=== PATIENT | male | born 1950 | race Caucasian/White ===

== ENCOUNTER → 2018-01-22 10:30 | Outpatient (CLI) | payer MEDICARE, SELFPAY ==
[2018-01-22 11:16] LABS: Alanine Aminotransferase 32 IU/L (21-72); Albumin 4.4 g/dL (3.5-5.0); Albumin Globulin Ratio 1.4 (1.0-2.8); Alkaline Phosphatase 44 U/L (38-126); Aspartate Aminotransferase 34 IU/L (17-59); BUN Creatinine Ratio 21.4 (6-22); Bilirubin Total 0.8 mg/dL (0.2-1.3); Blood Urea Nitrogen 15 mg/dL (9-20); Calcium 9.5 mg/dL (8.4-10.2); Carbon Dioxide 30 mmol/L (22-32); Chloride 101 mmol/L (98-107); Estimated Glomerular Filt Rate > 60.0 mL/min (>60); Globulin 3.1 g/dL (1.7-4.1); Glucose 103 mg/dL (80-110); HEMOLYSIS < 15 (0-50); Magnesium 1.9 mg/dL (1.6-2.3); Sodium 140 mmol/L (137-145); Total Protein 7.5 g/dL (6.3-8.2)
[2018-01-22 13:41] LABS: Free T4, Direct Thyroxine 0.71 ng/dL (0.78-2.19)
[2018-01-22 13:55] LABS: Thyroid Stimulating Hormone 2.56 uIU/mL (0.47-4.68)
== END ==
PROVIDERS: Family Provider Internal Medicine; PCP Internal Medicine; Visit Provider Internal Medicine
DX: I49.9 Cardiac arrhythmia, unspecified (principal)
CPT/HCPCS: 36415; 80053; 83735; 84439; 84443

== ENCOUNTER → 2018-01-25 09:24 | Outpatient (CLI) | payer MEDICARE, SELFPAY ==
--- NOTE | 2018-02-02 17:15 | P.HOLT.S_ITS ---
Change Management Manager Report Referral & Results Date Patient Seen: 01/25/18 Requesting provider: Brenton Alonso Duration of monitoring (days): 1 Diary information: Patient had 7 diary entries that were associated with sinus rhythm, PACs, PVCs and very brief runs of SVT There are 11 patient triggered events associated with sinus rhythm, PACs and PVCs Data: Minimum heart rate was 45 beats per minute at 07:03 on 01/26/2018 Maximum heart rate was 150 beats per minute at 15:31 on January 25, 2018, associated with a 4 beat run of SVT the maximum sinus heart rate was 108 beats per minute at 16:07 on January 25, 2018 1.8% of identified beats were supraventricular ectopic in origin or a total of 1630 Less than 1% of identified beats were premature ventricular in origin Impression: Patient's triggered events and symptoms appear to be associated with supraventricular ectopic beats. There were very brief runs of SVT noted lungs which was 8 beats which is unlikely to be of any significance.
== END ==
PROVIDERS: Family Provider Internal Medicine; PCP Internal Medicine; Visit Provider Internal Medicine
DX: I49.9 Cardiac arrhythmia, unspecified (principal)
CPT/HCPCS: 0296T; 0298T

== ENCOUNTER → 2018-08-14 09:48 | Outpatient (CLI) | payer MEDICARE, SELFPAY | PROVIDERS: Family Provider Internal Medicine; PCP Internal Medicine; Visit Provider Urology | DX: N40.1 Benign prostatic hyperplasia with lower urinary tract symptoms (principal) | CPT/HCPCS: 36415; 84153 ==

== ENCOUNTER → 2018-09-06 10:38 | Outpatient (CLI) | payer MEDICARE, SELFPAY ==
--- NOTE | 2018-09-06 10:40 | DI.US.S_ITS ---
PROCEDURE: US THYROID INDICATIONS: FOLLOW-UP LAST THYROID US 08/11/15 TECHNIQUE: Real-time scanning was performed of the thyroid gland, with image documentation. COMPARISON: [facility], US, THYROID, 08/11/2015, 13:33. FINDINGS: Right: Thyroid lobe measures 5.2 x 1.9 x 1.5 cm, and is homogeneous in echotexture. Left: Thyroid lobe measures 5.2 x 1.7 x 1.6 cm, and is homogenous in echotexture. Isthmus: 3.0 mm thick. Nodule number: 1 Location: Right superior Size: Unchanged at 0.7 x 0.4 x 0.7 cm. Composition: Solid Echogenicity: Hypoechoic Shape: wider than tall. Margins: Smooth Echogenic foci: None Total points: 4 ACR TI-RADS category: Moderately suspicious Nodule number: 2 Location: Right mid Size: Slightly increased at 2.1 x 1.4 x 1.6 cm. Composition: Solid Echogenicity: Isoechoic Shape: wider than tall. Margins: Ill-defined Echogenic foci: Macrocalcification Total points: 5 ACR TI-RADS category: Moderately suspicious Nodule number: 3 Location: Right anterior Size: 3.3 x 2.7 x 2.3 cm. Composition: Cystic Echogenicity: Anechoic Shape: wider than tall. Margins: Smooth Echogenic foci: None Total points: 0 ACR TI-RADS category: Benign colloid cyst. Nodule number: 4 Location: Left superior Size: 0.9 x 0.4 x 0.6 cm. Composition: Predominantly solid Echogenicity: Hypoechoic Shape: wider than tall. Margins: Smooth Echogenic foci: None Total points: 4 ACR TI-RADS category: Moderately suspicious Nodule number: 5 Location: Left inferior Size: Unchanged at 0.9 x 0.4 x 0.8 cm. Composition: Solid Echogenicity: Hypoechoic Shape: wider than tall. Margins: Smooth Echogenic foci: None Total points: 4 ACR TI-RADS category: Moderately suspicious IMPRESSION: Bilateral thyroid nodules as above. Recommend sonographic directed fine needle aspiration involving the right # 2 nodule and continued sonographic surveillance of the remaining nodules as detailed below. ACR TI-RADS definitions and recommendations: TI-RADS 1 (benign): 0 points. FNA not needed. TI-RADS 2 (not suspicious): 2 points. FNA not needed. TI-RADS 3 (mildly suspicious): 3 points. * FNA if 2.5 cm or larger, follow up if 1.5 cm or larger (at 1, 3, and 5 years). TI-RADS 4 (moderately suspicious): 4-6 points. * FNA if 1.5 cm or larger, follow up if 1 cm or larger (at 1, 2, 3, and 5 years). TI-RADS 5 (highly suspicious): 7 points or more. * FNA if 1 cm or larger, follow up if 0.5 cm or larger (every year for 5 years). Dictated by: Joe Moreno [facility] Interpreted: Gary Valerio MD on 09/07/2018 at 11:41 Approved by: Gary Valerio M.D. on 09/07/2018 at 14:14
== END ==
PROVIDERS: Family Provider Internal Medicine; PCP Internal Medicine; Visit Provider Internal Medicine
DX: E04.2 Nontoxic multinodular goiter (principal)
CPT/HCPCS: 76536

== ENCOUNTER → 2018-09-10 08:22 | Outpatient (CLI) | payer MEDICARE, SELFPAY ==
[2018-09-10 09:10] LABS: Alanine Aminotransferase 31 IU/L (21-72); Albumin 4.5 g/dL (3.5-5.0); Albumin Globulin Ratio 1.6 (1.0-2.8); Alkaline Phosphatase 48 U/L (38-126); Aspartate Aminotransferase 28 IU/L (17-59); Bilirubin Total 0.6 mg/dL (0.2-1.3); Blood Urea Nitrogen 14 mg/dL (9-20); Carbon Dioxide 29 mmol/L (22-32); Chloride 101 mmol/L (98-107); Estimated Glomerular Filt Rate > 60.0 mL/min (>60); Globulin 2.9 g/dL (1.7-4.1); Glucose 90 mg/dL (80-110); HEMOLYSIS < 15 (0-50); Potassium 3.7 mmol/L (3.4-5.1); Sodium 139 mmol/L (137-145); Total Protein 7.4 g/dL (6.3-8.2)
[2018-09-10 09:25] LABS: Free T4, Direct Thyroxine 0.61 ng/dL (0.78-2.19)
[2018-09-10 09:38] LABS: Prostate Specific Antigen Scrn 2.09 ng/mL (0.1-4.0)
[2018-09-10 09:39] LABS: Thyroid Stimulating Hormone 3.24 uIU/mL (0.47-4.68)
== END ==
PROVIDERS: Family Provider Internal Medicine; PCP Internal Medicine; Visit Provider Internal Medicine
DX: E04.1 Nontoxic single thyroid nodule (principal); G43.909 Migraine, unspecified, not intractable, without status migrainosus; N40.0 Benign prostatic hyperplasia without lower urinary tract symptoms; Z12.5 Encounter for screening for malignant neoplasm of prostate
CPT/HCPCS: 36415; 80053; 84439; 84443; G0103

== ENCOUNTER → 2018-10-04 09:40 | Outpatient (CLI) | payer MEDICARE, SELFPAY ==
--- NOTE | 2018-10-04 | DI.US.S_ITS ---
PROCEDURE: US FINE NEEDLE ASPIRATION INDICATIONS: NODULES TECHNIQUE: The indications, alternatives, benefits, risks, and complications of the procedure were explained to the patient. Written informed consent was obtained and placed in the chart. The area of interest was examined sonographically and a site was chosen for ultrasound guided percutaneous sampling. The skin was prepared and draped in the usual fashion, and anesthetized with 1% lidocaine infiltrated from the skin down to the lesion. Multiple passes were then performed, with contents emptied into an appropriate pathology specimen container. A bandage was applied to the area of access at completion of the study. COMPARISON: [facility], , US THYROID, 09/06/2018, 10:45. FINDINGS: Location(s) of lesion(s) sampled: right thyroid mass [place]: 25 gauge hypodermic needles. Number of passes: 6 Medications: 1% lidocaine for local anaesthesia. Complications: None. 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 Aspiration of the cyst could not be performed (no safe window for needle placement). IMPRESSION: 1. Successful ultrasound-guided fine needle aspiration of right thyroid mass, with cytology results pending. 2. Aspiration of right colloid cyst could not be performed (inferior to the right clavicle). Dictated by: Aracelis Ferrell M.D. on 10/04/2018 at 11:39 Approved by: Aracelis Ferrell M.D. on 10/04/2018 at 11:47
--- NOTE | 2018-10-04 | PATH_ITS ---
Note [facility] Accession Number: [id number] TESTS RESULT FLAG UNITS REF RANGE LAB Clinician Provided Cytology Information No. of containers..01 ThinPrep Vial No. of containers..10 Previously Prepared Cytology Slide R THYROID NODULE DIAGNOSIS: R THYROID NODULE INCONCLUSIVE. ATYPIA OF UNDETERMINED SIGNIFICANCE. RARE FOLLICULAR GROUPS WITH FOCAL CYTOLOGIC ATYPIA AND ABUNDANT DENSE COLLOID. Comment: A repeat aspirate after an appropriate interval of observation might be helpful, if clinically indicated. Pathologist ICD10: 02 R89.6, E04.2, D44.0 01 09/21/18: 68 year old male returns at the request of Dr. Alonso for evaluation of multinodular thyroid, with compressive symptoms leading to mild dysphagia. 02 Lianna Damico MD, Pathologist NPI- [id number] 01 Daljit Noriega, Research Intern ([facility]) 01 30 CC, PINK, CLEAR Also received 5 alcohol fixed, 5 quick stained slides, and 1 RNA vial. /HKH FLAG LEGEND: L-Low Normal,H-High Normal,LL-Alert Low,HH-Alert High <-Panic Low,>-Panic High,A-Abnormal,AA-Critical Abnormal Performed at: 01 =Z [facility] [address] [place] [address] [address], [place] [address] Carlos Norris MD, [address] [facility] [address] [place] [id number] Mamie Bourne MD, Performed at: [address] [facility] [address], [place], [place] [id number] MD Carlos Norris MD Phone: [phone]
== END ==
PROVIDERS: Family Provider Internal Medicine; PCP Internal Medicine; Visit Provider Otolaryngology
DX: E04.1 Nontoxic single thyroid nodule (principal)
CPT/HCPCS: 10005

== ENCOUNTER → 2019-07-29 10:37 | Outpatient (CLI) | payer MEDICARE, SELFPAY ==
[2019-07-29 14:03] LABS: Prostate Specific Antigen 2.33 ng/mL (0.10-4.00)
== END ==
PROVIDERS: PCP Internal Medicine; Visit Provider Urology
DX: N40.1 Benign prostatic hyperplasia with lower urinary tract symptoms (principal)
CPT/HCPCS: 36415; 84153

== ENCOUNTER → 2019-09-25 10:02 | Outpatient (CLI) | payer MEDICARE, SELFPAY ==
[2019-09-25 10:45] LABS: Add Manual Diff / Slide Review NO; Basophils Absolute Auto 0 /uL (0-100); Basophils Percent Auto 0.7 % (0-2); Eosinophils Absolute Auto 100 /uL (0-450); Eosinophils Percent Auto 2.8 % (2-4); Hematocrit 41.8 % (41-53); Hemoglobin 14.5 g/dL (13.5-17.5); Lymphocytes Absolute Auto 2000 /uL (1100-4500); Lymphocytes Percent Auto 47.4 % (25-40); Mean Corpuscular HGB Conc 34.6 % (30-36); Mean Corpuscular Hemoglobin 36.2 PG (26-34); Mean Corpuscular Volume 104.4 fL (80-100); Monocytes Absolute Auto 300 /uL (0-900); Monocytes Percent Auto 6.4 % (3-14); Neutrophils Absolute Auto 1800 /uL (1500-7000); Neutrophils Percent Auto 42.7 % (50-75); Platelet Count 306 X10^3/uL (150-400); Red Blood Cell Count 4.01 X10^6/uL (4.5-5.9); Red Cell Distribution Width 12.7 % (11.6-14.8); White Blood Cell Count 4.2 X10^3/uL (4.5-11.0)
[2019-09-25 11:19] LABS: Alanine Aminotransferase 27 IU/L (<50); Albumin 4.4 g/dL (3.5-5.0); Albumin Globulin Ratio 1.5 (1.0-2.8); Alkaline Phosphatase 58 U/L (38-126); Aspartate Aminotransferase 31 IU/L (17-59); Bilirubin Total 0.6 mg/dL (0.2-1.3); Blood Urea Nitrogen 12 mg/dL (9-20); Calcium 9.8 mg/dL (8.4-10.2); Carbon Dioxide 31 mmol/L (22-32); Chloride 101 mmol/L (98-107); Estimated Glomerular Filt Rate > 60.0 mL/min (>60); Globulin 2.9 g/dL (1.7-4.1); Glucose 96 mg/dL (80-110); HEMOLYSIS < 15 (0-50); Potassium 4.5 mmol/L (3.4-5.1); Sodium 139 mmol/L (137-145); Total Protein 7.3 g/dL (6.3-8.2)
== END ==
PROVIDERS: PCP Internal Medicine; Referring Provider Internal Medicine; Visit Provider Internal Medicine
DX: Z13.1 Encounter for screening for diabetes mellitus (principal); Z13.6 Encounter for screening for cardiovascular disorders; D75.89 Other specified diseases of blood and blood-forming organs; G43.909 Migraine, unspecified, not intractable, without status migrainosus
CPT/HCPCS: 36415; 80053; 85025

== ENCOUNTER → 2020-08-11 08:07 | Outpatient (CLI) | payer MEDICARE, SELFPAY ==
[2020-08-11 10:39] LABS: Prostate Specific Antigen 2.49 ng/mL (0.10-4.00)
== END ==
PROVIDERS: PCP Internal Medicine; Referring Provider Specialist; Visit Provider Specialist
DX: R97.20 Elevated prostate specific antigen [PSA] (principal)
CPT/HCPCS: 36415; 84153

== ENCOUNTER → 2020-09-28 09:25 | Outpatient (CLI) | payer MEDICARE, SELFPAY ==
[2020-09-28 10:17] LABS: Add Manual Diff / Slide Review NO; Basophils Absolute Auto 0 /uL (0-100); Basophils Percent Auto 0.8 % (0-2); Eosinophils Absolute Auto 100 /uL (0-450); Eosinophils Percent Auto 3.5 % (2-4); Hematocrit 41.7 % (41-53); Hemoglobin 14.1 g/dL (13.5-17.5); Lymphocytes Absolute Auto 1700 /uL (1100-4500); Lymphocytes Percent Auto 48.1 % (25-40); Mean Corpuscular HGB Conc 33.7 % (30-36); Mean Corpuscular Hemoglobin 35.5 PG (26-34); Mean Corpuscular Volume 105.5 fL (80-100); Monocytes Absolute Auto 400 /uL (0-900); Monocytes Percent Auto 10.3 % (3-14); Neutrophils Absolute Auto 1300 /uL (1500-7000); Neutrophils Percent Auto 37.3 % (50-75); Platelet Count 250 X10^3/uL (150-400); Red Blood Cell Count 3.96 X10^6/uL (4.5-5.9); White Blood Cell Count 3.6 X10^3/uL (4.5-11.0)
[2020-09-28 10:57] LABS: Alanine Aminotransferase 23 IU/L (<50); Albumin 4.4 g/dL (3.5-5.0); Albumin Globulin Ratio 1.5 (1.0-2.8); Alkaline Phosphatase 54 U/L (38-126); Aspartate Aminotransferase 29 IU/L (17-59); BUN Creatinine Ratio 19.5 (6-22); Bilirubin Total 0.8 mg/dL (0.2-1.3); Blood Urea Nitrogen 15 mg/dL (9-20); Calcium 9.4 mg/dL (8.4-10.2); Carbon Dioxide 32 mmol/L (22-32); Chloride 102 mmol/L (98-107); Estimated Glomerular Filt Rate > 60.0 mL/min (>60); Globulin 2.9 g/dL (1.7-4.1); Glucose 99 mg/dL (80-110); HEMOLYSIS < 15 (0-50); Potassium 4.3 mmol/L (3.4-5.1); Sodium 137 mmol/L (137-145); Total Protein 7.3 g/dL (6.3-8.2)
[2020-09-28 14:39] LABS: Prostate Specific Antigen 2.32 ng/mL (0.10-4.00)
[2020-09-28 14:40] LABS: TSH w/ Reflex to FT4 2.41 uIU/mL (0.47-4.68)
== END ==
PROVIDERS: PCP Internal Medicine; Referring Provider Internal Medicine; Visit Provider Internal Medicine
DX: D70.9 Neutropenia, unspecified (principal); N40.1 Benign prostatic hyperplasia with lower urinary tract symptoms; E04.2 Nontoxic multinodular goiter; D75.89 Other specified diseases of blood and blood-forming organs; E04.1 Nontoxic single thyroid nodule; F07.81 Postconcussional syndrome; N52.9 Male erectile dysfunction, unspecified
CPT/HCPCS: 36415; 80053; 84153; 84443; 85025

== ENCOUNTER 2020-10-07 08:15 | Outpatient (RCR) | payer MEDICARE, SELFPAY ==
--- NOTE | 2020-07-14 12:57 | PT.OPPOC ---
Physical, Occupational & Speech Therapy At [facility] Current Diagnoses Pain in right shoulder (07/14/20) Impingement syndrome of right shoulder (07/14/20) Weakness (07/14/20) Visit Care Team Role Provider Type Brenton Alonso MD Primary Care Provider Physician Specialty: Internal Medicine Address: [address] [place] [address], [address], [place], [address] Email: [email or web address] Carlos Nunes MD Attending Provider Physician Referring Provider Specialty: Orthopedic Surgery Address: [address] [place] [address], [id number] Email: [email or web address] Plan Of Care PT-OP-T Assessment and Plan Start: 07/07/20 14:49 Freq: Status: Active Protocol: Document 07/14/20 12:57 [facility] (Rec: 07/14/20 17:26 [facility] [id number]) Physical Therapy Assessment Rehab Potential Rehabilitation Potential Good Evaluation Complexity Number of Personal Factors/Comorbidities 1-2 Number of Body Systems Impaired 3 Clinical Presentation at Evaluation Evolving Impairments Impairments Functional Activities,Pain, Strength Goals 3 Impairment weakness right shoulder Long-Term Goal (LTG) Patient to demonstrate 5/5 muscle strength throughout right shouldre LTG Duration 09/12/20 2 Impairment pain right shoulder 4/10 with usual activities Order Dispatcher Goal (LTG) Pain no greater than 1-2/10 with usual activities LTG Duration 09/12/20 1 Impairment QuickDash UE disability questionnaire 18% Order Dispatcher Goal (LTG) Decrase QuickDash score to no greater than 5% LTG Duration 09/12/20 Assessment Summary Assessment Patient presents with function -limiting pain right shoulder related to injury sustained while pulling shrimp pots. 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 Would benefit from physical therapy to decrease his pain, improve his strength, and help him return to his prior level of function including kayaking and finshing without an increase in pain. Physical Therapy Plan Frequency and Duration Frequency of Treatment 2x/Week Duration of Treatment 8 Plan of Care Start Date 07/14/20 Plan of Care End Date 09/12/20 Therapeutic Interventions Therapeutic Interventions Home Exercise Program,Joint Mobilizations,Manual Therapy, Neuromuscular Re-education, Patient/Caregiver Education, Self-Care/Home Management,Soft Tissue Mobilization,Taping, Therapeutic Activities, Therapeutic Exercises Modalities Cold Pack/Ice Massage,Electric Stimulation,Iontophoresis, Ultrasound Next Visit Focus/Plan Next Note Type Treatment Note Next Visit Plan Review HEP, progression of ther ex as tolerated. Manual therapy to first rib, AC joint , and GH joint. End with ice pack to decrease post exercise pain and inflammation Plan of Care Dates Plan of Care Start Date 07/14/20 Plan of Care End Date 09/12/20 Electronically Signed by: Nickie Lim, PT 07/15/20 0937 Please Sign and Return: I have reviewed this Plan of Care and certify that the skilled therapy services above are required to meet the patient?s needs. Physician Signature Date Printed Name and Credentials Clinical Instructor Signature Printed Name and Credentials
--- NOTE | 2020-07-14 12:57 | PT.OIE ---
Current Diagnoses Pain in right shoulder (07/14/20) Impingement syndrome of right shoulder (07/14/20) Weakness (07/14/20) Past Medical History (Last Updated 09/17/18 @ 10:27 by Brenton Alonso MD) Actinic keratosis of scalp (02/17/14) Anxiety (02/17/14) BPH (benign prostatic hyperplasia) (~2006) Central serous retinopathy (~1993) Daily headache (02/17/14) Diverticular disease (~1993) Fractures (~1973) Hemorrhoid (~2003) Insomnia (~2010) Internal hemorrhoids (10/28/14) Irritable bowel syndrome Macrocytosis (~2012) Migraines (~2010) Nonallopathic lesion of cervical region (10/28/14) Postconcussion syndrome (02/17/14) Reflux (06/09/14) Seborrheic keratosis (02/17/14) Thyroid nodule (~2012) Tinnitus Tubular adenoma of colon (10/28/14) Vertigo Vertigo (~2010) Past Surgical History (Last Reviewed 05/24/18 @ 10:24 by Willie Medina PA-C) Inguinal hernia (~2013) Status post colonoscopy (~2014) Status post hernia repair (~1964) Visit Care Team Role Provider Type Brenton Alonso MD Primary Care Provider Physician Specialty: Internal Medicine Address: [address] [place] [address], [address], [address] Email: [email or web address] Carlos Nunes MD Attending Provider Physician Referring Provider Specialty: Orthopedic Surgery Address: [address] [place] [address], [id number] Email: [email or web address] Physical Therapy Initial Evaluation PT-OP-A Visit Information Start: 07/07/20 14:49 Freq: Status: Active Protocol: Document 07/14/20 12:57 [facility] (Rec: 07/14/20 13:41 [facility] [id number]) Out-Patient Physical Therapy Visit Information Visit Information Visit Type Initial Evaluation Visit Start Time 13:00 Visit Stop Time 13:55 Total Visit Minutes 55 Visit Number 1 Evaluation Information Evaluation Date 07/14/20 Precautions Precautions PMH: concussion 2 years ago. PT-OP-B Current Condition Start: 07/07/20 14:49 Freq: Status: Active Protocol: Document 07/14/20 12:57 [facility] (Rec: 07/14/20 13:41 [facility] [id number]) Current Condition History of Current Condition Onset Date 4 months ago Current Complaints shoulder pain History of Current Condition Pulling shrimp pots, reachiing diagnonally overhead felt strain, onset of right shoulder pain. Has been doing ther ex, ROM good, strenth limited (states left feels stronger than his right). Concerned pain continues. Using ice pack after exercise, heat not helpful. Topical CBD helpful short term. Interrupts sleep. Painful with kayaking. 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 Prior Functional Status Baseline Function- ADL's Independent Baseline Function- Mobility Independent Baseline Function- Recreation/Hobbies Fishing, woodwork, Current Functional Impairments (Reported) Functional Limitations- ADL's painful Functional Limitations- Recreation/ painful Hobbies Personal Factors Other Personal Factors That May Effect PMH: left clavicle fracture, Therapy/Recovery concussion PT-OP-C Subjective Start: 07/07/20 14:49 Freq: Status: Active Protocol: Document 07/14/20 12:57 [facility] (Rec: 07/14/20 13:41 [facility] [id number]) Patient Questionnaires Quick Dash- Upper Extremity Quick Dash UE Score 18 OP-PT Pain Assessment Pain Assessment Grid Paper Pain Assessment Grid Completed Yes Location right AC joint Intensity 4 PT-OP-E Functional Tests Start: 07/07/20 14:49 Freq: Status: Active Protocol: Document 07/14/20 12:57 [facility] (Rec: 07/15/20 09:36 [facility] [id number]) Functional Tests Apley's Scratch Test Action 1- Left posterior shoulder Action 1- Right posterior shoulder with somepain Action 2- Left T2 Action 2- Right T2 with pain Action 3- Left T7 Action 3- Right T7 withpain PT-OP-F Manual Assessment Start: 07/07/20 14:49 Freq: Status: Active Protocol: Document 07/14/20 12:57 [facility] (Rec: 07/15/20 09:36 [facility] [id number]) Manual Assessments Joint Mobility Assessment Joint Mobility Assessment decreased inferior and posterior glide right shoulder PT-OP-J Posture/Palpation/Skin Start: 07/07/20 14:49 Freq: Status: Active Protocol: Document 07/14/20 12:57 [facility] (Rec: 07/15/20 09:36 [facility] [id number]) Posture Evaluation Position Sitting Head/C-Spine Posture Forward Head T-Spine Posture Increased Kyphosis Shoulder Posture (L) Rounded,(R) Rounded Scapula Posture (L) Neutral,(R) Protracted Arm Posture (L) Internally Rotated,(R) Internally Rotated Palpation Assessment Location [place] Palpation Findings Soft Tissue Tightness,Trigger Point Palpation Details right greater than left PT-OP-K Range of Motion Start: 07/07/20 14:49 Freq: Status: Active Protocol: Document 07/14/20 12:57 [facility] (Rec: 07/15/20 09:36 [facility] [id number]) Cervical Spine Range of Motion Cervical Spine Active ROM Limitations Soft Tissue Tightness Comments mild limitation in left sidebending and rotation Shoulder Goniometric Range of Motion Shoulder Right Active Shoulder ROM WFL No Flexion 170 Abduction 165 Horizontal Adduction 45 External Rotation at 45 degrees 65 Abduction Internal Rotation Behind Back (text) T7 Left Active Shoulder ROM WFL Yes Shoulder ROM Limitations Shoulder ROM Limitations Soft Tissue Tightness,Pain Elbow/Forearm Range of Motion Elbow/Forearm daljit Elbow/Forearm ROM WFL Yes PT-OP-L Special Tests Start: 07/07/20 14:49 Freq: Status: Active Protocol: Document 07/14/20 12:57 [facility] (Rec: 07/15/20 09:36 [facility] [id number]) Special Tests Shoulder Special Tests Elevation Impingement Test Results positive right Drop Arm Rotator Cuff Test Results negative Belly Press Test Results negative PT-OP-M Strength Start: 07/07/20 14:49 Freq: Status: Active Protocol: Document 07/14/20 12:57 [facility] (Rec: 07/15/20 09:36 [facility] [id number]) Shoulder Strength Shoulder Manual Muscle Testing Right Flexion 4 Good Extension 4+ Good+ Abduction (C5) 4 Good Adduction 4 Good External Rotation 4- Good- Internal Rotation 4 Good Horizontal Abduction 4 Good Horizontal Adduction 4 Good Left Flexion 5 Normal Extension 5 Normal Abduction (C5) 5 Normal Adduction 5 Normal External Rotation 4 Good Internal Rotation 4+ Good+ Horizontal Abduction 4+ Good+ Horizontal Adduction 4+ Good+ PT-OP-Q Treatments Start: 07/07/20 14:49 Freq: Status: Active Protocol: Document 07/14/20 12:57 [facility] (Rec: 07/14/20 17:15 [facility] [id number]) Self-Care/Home Management Treatment Education Patient Education Home Exercise Program,Joint Protection,Pain Management, Posture Other Education Issued written handout for HEP PT-OP-R Modalities Start: 07/07/20 14:49 Freq: Status: Active Protocol: Document 07/14/20 12:57 [facility] (Rec: 07/14/20 17:16 [facility] [id number]) Hot Pack/Cold Pack Treatment Cold Pack Location right shoulder Patient Position Hooklying Treatment Duration (minutes) 10 Patient Tolerance Good PT-OP-T Assessment and Plan Start: 07/07/20 14:49 Freq: Status: Active Protocol: Document 07/14/20 12:57 [facility] (Rec: 07/14/20 17:26 [facility] [id number]) Physical Therapy Assessment Rehab Potential Rehabilitation Potential Good Evaluation Complexity Number of Personal Factors/Comorbidities 1-2 Number of Body Systems Impaired 3 Clinical Presentation at Evaluation Evolving Impairments Impairments Functional Activities,Pain, Strength Goals 3 Impairment weakness right shoulder [facility] Goal (LTG) Patient to demonstrate 5/5 muscle strength throughout right shouldre LTG Duration 09/12/20 2 Impairment pain right shoulder 4/10 with usual activities Research Assistant Member Goal (LTG) Pain no greater than 1-2/10 with usual activities LTG Duration 09/12/20 1 Impairment QuickDash UE disability questionnaire 18% [facility] Goal (LTG) Decrase QuickDash score to no greater than 5% LTG Duration 09/12/20 Assessment Summary Assessment Patient presents with function -limiting pain right shoulder related to injury sustained while pulling shrimp pots. 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 Would benefit from physical therapy to decrease his pain, improve his strength, and help him return to his prior level of function including kayaking and finshing without an increase in pain. Physical Therapy Plan Frequency and Duration Frequency of Treatment 2x/Week Duration of Treatment 8 Plan of Care Start Date 07/14/20 Plan of Care End Date 09/12/20 Therapeutic Interventions Therapeutic Interventions Home Exercise Program,Joint Mobilizations,Manual Therapy, Neuromuscular Re-education, Patient/Caregiver Education, Self-Care/Home Management,Soft Tissue Mobilization,Taping, Therapeutic Activities, Therapeutic Exercises Modalities Cold Pack/Ice Massage,Electric Stimulation,Iontophoresis, Ultrasound Next Visit Focus/Plan Next Note Type Treatment Note Next Visit Plan Review HEP, progression of ther ex as tolerated. Manual therapy to first rib, AC joint , and GH joint. End with ice pack to decrease post exercise pain and inflammation
--- NOTE | 2020-07-21 16:30 | PT.OTN ---
Current Diagnoses Pain in right shoulder (07/21/20) Impingement syndrome of right shoulder (07/21/20) Weakness (07/21/20) Physical Therapy Treatment Note PT-OP-A Visit Information Start: 07/07/20 14:49 Freq: Status: Active Protocol: Document 07/21/20 09:43 SAK (Rec: 07/21/20 10:33 SAK [id number]) Out-Patient Physical Therapy Visit Information Visit Information Visit Type Treatment Note Visit Note Patient reports a little less stiff in AM, compliant to HEP Visit Start Time 09:45 Visit Stop Time 10:34 Total Visit Minutes 48 Visit Number 2 Evaluation Information Evaluation Date 07/14/20 Precautions Precautions PMH: concussion 2 years ago. PT-OP-B Current Condition Start: 07/07/20 14:49 Freq: Status: Active Protocol: Document 07/14/20 12:57 SAK (Rec: 07/14/20 13:41 SAK [id number]) Current Condition History of Current Condition Onset Date 4 months ago Current Complaints shoulder pain History of Current Condition Pulling shrimp pots, reachiing diagnonally overhead felt strain, onset of right shoulder pain. Has been doing ther ex, ROM good, strenth limited (states left feels stronger than his right). Concerned pain continues. Using ice pack after exercise, heat not helpful. Topical CBD helpful short term. Interrupts sleep. Painful with kayaking. 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 Prior Functional Status Baseline Function- ADL's Independent Baseline Function- Mobility Independent Baseline Function- Recreation/Hobbies Fishing, woodwork, Current Functional Impairments (Reported) Functional Limitations- ADL's painful Functional Limitations- Recreation/ painful Hobbies Personal Factors Other Personal Factors That May Effect PMH: left clavicle fracture, Therapy/Recovery concussion PT-OP-C Subjective Start: 07/07/20 14:49 Freq: Status: Active Protocol: Document 07/14/20 12:57 SAK (Rec: 07/14/20 13:41 SAK [id number]) Patient Questionnaires Quick Dash- Upper Extremity Quick Dash UE Score 18 OP-PT Pain Assessment Pain Assessment Grid Paper Pain Assessment Grid Completed Yes Location right AC joint Intensity 4 PT-OP-E Functional Tests Start: 07/07/20 14:49 Freq: Status: Active Protocol: Document 07/14/20 12:57 SAK (Rec: 12/23/20 09:36 [facility] [id number]) Functional Tests Apley's Scratch Test Action 1- Left posterior shoulder Action 1- Right posterior shoulder with somepain Action 2- Left T2 Action 2- Right T2 with pain Action 3- Left T7 Action 3- Right T7 withpain PT-OP-F Manual Assessment Start: 07/07/20 14:49 Freq: Status: Active Protocol: Document 07/14/20 12:57 [facility] (Rec: 07/15/20 09:36 [facility] [id number]) Manual Assessments Joint Mobility Assessment Joint Mobility Assessment decreased inferior and posterior glide right shoulder PT-OP-J Posture/Palpation/Skin Start: 07/07/20 14:49 Freq: Status: Active Protocol: Document 07/14/20 12:57 [facility] (Rec: 07/15/20 09:36 [facility] [id number]) Posture Evaluation Position Sitting Head/C-Spine Posture Forward Head T-Spine Posture Increased Kyphosis Shoulder Posture (L) Rounded,(R) Rounded Scapula Posture (L) Neutral,(R) Protracted Arm Posture (L) Internally Rotated,(R) Internally Rotated Palpation Assessment Location [place] Palpation Findings Soft Tissue Tightness,Trigger Point Palpation Details right greater than left PT-OP-K Range of Motion Start: 07/07/20 14:49 Freq: Status: Active Protocol: Document 07/14/20 12:57 [facility] (Rec: 07/15/20 09:36 [facility] [id number]) Cervical Spine Range of Motion Cervical Spine Active ROM Limitations Soft Tissue Tightness Comments mild limitation in left sidebending and rotation Shoulder Goniometric Range of Motion Shoulder Right Active Shoulder ROM WFL No Flexion 170 Abduction 165 Horizontal Adduction 45 External Rotation at 45 degrees 65 Abduction Internal Rotation Behind Back (text) T7 Left Active Shoulder ROM WFL Yes Shoulder ROM Limitations Shoulder ROM Limitations Soft Tissue Tightness,Pain Elbow/Forearm Range of Motion Elbow/Forearm daljit Elbow/Forearm ROM WFL Yes PT-OP-L Special Tests Start: 07/07/20 14:49 Freq: Status: Active Protocol: Document 07/14/20 12:57 [facility] (Rec: 07/15/20 09:36 [facility] [id number]) Special Tests Shoulder Special Tests Elevation Impingement Test Results positive right Drop Arm Rotator Cuff Test Results negative Belly Press Test Results negative PT-OP-M Strength Start: 07/07/20 14:49 Freq: Status: Active Protocol: Document 07/14/20 12:57 [facility] (Rec: 07/15/20 09:36 [facility] [id number]) Shoulder Strength Shoulder Manual Muscle Testing Right Flexion 4 Good Extension 4+ Good+ Abduction (C5) 4 Good Adduction 4 Good External Rotation 4- Good- Internal Rotation 4 Good Horizontal Abduction 4 Good Horizontal Adduction 4 Good Left Flexion 5 Normal Extension 5 Normal Abduction (C5) 5 Normal Adduction 5 Normal External Rotation 4 Good Internal Rotation 4+ Good+ Horizontal Abduction 4+ Good+ Horizontal Adduction 4+ Good+ PT-OP-Q Treatments Start: 07/07/20 14:49 Freq: Status: Active Protocol: Document 07/21/20 09:43 [facility] (Rec: 07/21/20 10:33 [facility] [id number]) Therapeutic Exercises Supine Exercises serratus punch Resistance 2# Reps/Minutes 10x Prone Exercises I, T, Y Equipment Used therapy ball 55 cm Reps/Minutes 10x Comments 1# with Y, 1# T, 2# Y Sidelying Exercises open book Reps/Minutes 5x Comments with manual facilitation for segmental movement shoulder ER Resistance 1# Reps/Minutes 10x Comments verbal and manual cues for scapular stabilization Sitting Exercises lat shrug Resistance 30# Reps/Minutes 10x2 Comments verbal and manual cues for scapular biomechanics pulleys Sitting Exercise Name flex and scaption Reps/Minutes 10x ea Manual Therapy Treatment Joint Mobilizations GH Direction distraction, posterior glide Grade III Body Position Hooklying first rib Direction inferior glide Grade III Body Position Hooklying Self-Care/Home Management Treatment Education Patient Education Home Exercise Program,Pain Management,Posture PT-OP-R Modalities Start: 07/07/20 14:49 Freq: Status: Active Protocol: Document 07/14/20 12:57 [facility] (Rec: 07/14/20 17:16 [facility] [id number]) Hot Pack/Cold Pack Treatment Cold Pack Location right shoulder Patient Position Hooklying Treatment Duration (minutes) 10 Patient Tolerance Good PT-OP-T Assessment and Plan Start: 07/07/20 14:49 Freq: Status: Active Protocol: Document 07/21/20 09:43 [facility] (Rec: 07/21/20 10:33 [facility] [id number]) Physical Therapy Assessment Goals 3 Impairment weakness right shoulder Correction Goal (LTG) Patient to demonstrate 5/5 muscle strength throughout right shouldre LTG Duration 09/12/20 2 Impairment pain right shoulder 4/10 with usual activities Correction Goal (LTG) Pain no greater than 1-2/10 with usual activities LTG Duration 09/12/20 1 Impairment QuickDash UE disability questionnaire 18% Correction Goal (LTG) Decrase QuickDash score to no greater than 5% LTG Duration 09/12/20 Assessment Summary Assessment Patient needs verbal and manual cues for correction of scapular mechanics with all ther ex, but improved throughout session with good understanding. Issued updated written HEP. Denied increased pain with ther ex. Physical Therapy Plan Frequency and Duration Frequency of Treatment 2x/Week Duration of Treatment 8 Plan of Care Start Date 07/14/20 Plan of Care End Date 09/12/20 Therapeutic Interventions Therapeutic Interventions Home Exercise Program,Joint Mobilizations,Manual Therapy, Neuromuscular Re-education, Patient/Caregiver Education, Self-Care/Home Management,Soft Tissue Mobilization,Taping, Therapeutic Activities, Therapeutic Exercises Modalities Cold Pack/Ice Massage,Electric Stimulation,Iontophoresis, Ultrasound Next Visit Focus/Plan Next Note Type Treatment Note Next Visit Plan simulate pulling shrimp pots with use of theraband.
--- NOTE | 2020-07-23 16:57 | PT.OTN ---
Current Diagnoses Pain in right shoulder (07/23/20) Impingement syndrome of right shoulder (07/23/20) Weakness (07/23/20) Physical Therapy Treatment Note PT-OP-A Visit Information Start: 07/07/20 14:49 Freq: Status: Active Protocol: Document 07/23/20 10:32 SAK (Rec: 07/23/20 11:07 SAK [id number]) Out-Patient Physical Therapy Visit Information Visit Information Visit Type Treatment Note Visit Note No new c/o, feels exercises are helpful. Visit Start Time 10:30 Visit Stop Time 11:15 Total Visit Minutes 45 Visit Number 3 Evaluation Information Evaluation Date 07/14/20 Precautions Precautions PMH: concussion 2 years ago. PT-OP-B Current Condition Start: 07/07/20 14:49 Freq: Status: Active Protocol: Document 07/14/20 12:57 SAK (Rec: 07/14/20 13:41 SAK [id number]) Current Condition History of Current Condition Onset Date 4 months ago Current Complaints shoulder pain History of Current Condition Pulling shrimp pots, reachiing diagnonally overhead felt strain, onset of right shoulder pain. Has been doing ther ex, ROM good, strenth limited (states left feels stronger than his right). Concerned pain continues. Using ice pack after exercise, heat not helpful. Topical CBD helpful short term. Interrupts sleep. Painful with kayaking. 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 Prior Functional Status Baseline Function- ADL's Independent Baseline Function- Mobility Independent Baseline Function- Recreation/Hobbies Fishing, woodwork, Current Functional Impairments (Reported) Functional Limitations- ADL's painful Functional Limitations- Recreation/ painful Hobbies Personal Factors Other Personal Factors That May Effect PMH: left clavicle fracture, Therapy/Recovery concussion PT-OP-C Subjective Start: 07/07/20 14:49 Freq: Status: Active Protocol: Document 07/14/20 12:57 SAK (Rec: 07/14/20 13:41 SAK [id number]) Patient Questionnaires Quick Dash- Upper Extremity Quick Dash UE Score 18 OP-PT Pain Assessment Pain Assessment Grid Paper Pain Assessment Grid Completed Yes Location right AC joint Intensity 4 PT-OP-E Functional Tests Start: 07/07/20 14:49 Freq: Status: Active Protocol: Document 07/14/20 12:57 SAK (Rec: 12/23/20 09:36 [facility] [id number]) Functional Tests Apley's Scratch Test Action 1- Left posterior shoulder Action 1- Right posterior shoulder with somepain Action 2- Left T2 Action 2- Right T2 with pain Action 3- Left T7 Action 3- Right T7 withpain PT-OP-F Manual Assessment Start: 07/07/20 14:49 Freq: Status: Active Protocol: Document 07/14/20 12:57 [facility] (Rec: 07/15/20 09:36 [facility] [id number]) Manual Assessments Joint Mobility Assessment Joint Mobility Assessment decreased inferior and posterior glide right shoulder PT-OP-J Posture/Palpation/Skin Start: 07/07/20 14:49 Freq: Status: Active Protocol: Document 07/14/20 12:57 [facility] (Rec: 07/15/20 09:36 [facility] [id number]) Posture Evaluation Position Sitting Head/C-Spine Posture Forward Head T-Spine Posture Increased Kyphosis Shoulder Posture (L) Rounded,(R) Rounded Scapula Posture (L) Neutral,(R) Protracted Arm Posture (L) Internally Rotated,(R) Internally Rotated Palpation Assessment Location [place] Palpation Findings Soft Tissue Tightness,Trigger Point Palpation Details right greater than left PT-OP-K Range of Motion Start: 07/07/20 14:49 Freq: Status: Active Protocol: Document 07/14/20 12:57 [facility] (Rec: 07/15/20 09:36 [facility] [id number]) Cervical Spine Range of Motion Cervical Spine Active ROM Limitations Soft Tissue Tightness Comments mild limitation in left sidebending and rotation Shoulder Goniometric Range of Motion Shoulder Right Active Shoulder ROM WFL No Flexion 170 Abduction 165 Horizontal Adduction 45 External Rotation at 45 degrees 65 Abduction Internal Rotation Behind Back (text) T7 Left Active Shoulder ROM WFL Yes Shoulder ROM Limitations Shoulder ROM Limitations Soft Tissue Tightness,Pain Elbow/Forearm Range of Motion Elbow/Forearm daljit Elbow/Forearm ROM WFL Yes PT-OP-L Special Tests Start: 07/07/20 14:49 Freq: Status: Active Protocol: Document 07/14/20 12:57 [facility] (Rec: 07/15/20 09:36 [facility] [id number]) Special Tests Shoulder Special Tests Elevation Impingement Test Results positive right Drop Arm Rotator Cuff Test Results negative Belly Press Test Results negative PT-OP-M Strength Start: 07/07/20 14:49 Freq: Status: Active Protocol: Document 07/14/20 12:57 [facility] (Rec: 07/15/20 09:36 [facility] [id number]) Shoulder Strength Shoulder Manual Muscle Testing Right Flexion 4 Good Extension 4+ Good+ Abduction (C5) 4 Good Adduction 4 Good External Rotation 4- Good- Internal Rotation 4 Good Horizontal Abduction 4 Good Horizontal Adduction 4 Good Left Flexion 5 Normal Extension 5 Normal Abduction (C5) 5 Normal Adduction 5 Normal External Rotation 4 Good Internal Rotation 4+ Good+ Horizontal Abduction 4+ Good+ Horizontal Adduction 4+ Good+ PT-OP-Q Treatments Start: 07/07/20 14:49 Freq: Status: Active Protocol: Document 07/23/20 10:32 [facility] (Rec: 07/23/20 11:07 [facility] [id number]) Therapeutic Exercises Prone Exercises plank Reps/Minutes 30x2 I, T, Y Equipment Used therapy ball 55 cm Reps/Minutes 10x Comments 2# Sidelying Exercises side plank Comments winging noted left scapula open book Reps/Minutes 5x Comments with manual facilitation for segmental movement shoulder ER Resistance 1# Reps/Minutes 10x Comments verbal and manual cues for scapular stabilization Sitting Exercises lat shrug Comments HEP Standing Exercises standing serratus shrug Reps/Minutes 10x Other Exercises cat/cow Reps/Minutes 10x Manual Therapy Treatment Joint Mobilizations GH Direction distraction, posterior glide Grade III Body Position Hooklying first rib Direction inferior glide Grade III Body Position Hooklying Self-Care/Home Management Treatment Education Patient Education Home Exercise Program,Posture PT-OP-R Modalities Start: 07/07/20 14:49 Freq: Status: Active Protocol: Document 07/14/20 12:57 [facility] (Rec: 07/14/20 17:16 [facility] [id number]) Hot Pack/Cold Pack Treatment Cold Pack Location right shoulder Patient Position Hooklying Treatment Duration (minutes) 10 Patient Tolerance Good PT-OP-T Assessment and Plan Start: 07/07/20 14:49 Freq: Status: Active Protocol: Document 07/23/20 10:32 SAK (Rec: 07/23/20 11:07 [facility] [id number]) Physical Therapy Assessment Goals 3 Impairment weakness right shoulder Jail Goal (LTG) Patient to demonstrate 5/5 muscle strength throughout right shouldre LTG Duration 09/12/20 2 Impairment pain right shoulder 4/10 with usual activities Jail Goal (LTG) Pain no greater than 1-2/10 with usual activities LTG Duration 09/12/20 1 Impairment QuickDash UE disability questionnaire 18% Jail Goal (LTG) Decrase QuickDash score to no greater than 5% LTG Duration 09/12/20 Progress Towards Goals Progress Towards Goals Progressing Toward Goals Assessment Summary Assessment Good compliance to HEP, required cues for improved mobility with cat/cow. Winging right scapula noted with side plank. Tolerated increased weight for serratus punch. Elevated first rib, improved with manual techniques. Physical Therapy Plan Frequency and Duration Frequency of Treatment 2x/Week Duration of Treatment 8 Plan of Care Start Date 07/14/20 Plan of Care End Date 09/12/20 Therapeutic Interventions Therapeutic Interventions Home Exercise Program,Joint Mobilizations,Manual Therapy, Neuromuscular Re-education, Patient/Caregiver Education, Self-Care/Home Management,Soft Tissue Mobilization,Taping, Therapeutic Activities, Therapeutic Exercises Modalities Cold Pack/Ice Massage,Electric Stimulation,Iontophoresis, Ultrasound Next Visit Focus/Plan Next Note Type Treatment Note Next Visit Plan simulate pulling shrimp pots with use of theraband. Evaluate response to HEP. Manual techniques as indicated .
--- NOTE | 2020-07-30 16:25 | PT.OTN ---
Current Diagnoses Pain in right shoulder (07/30/20) Impingement syndrome of right shoulder (07/30/20) Weakness (07/30/20) Physical Therapy Treatment Note PT-OP-A Visit Information Start: 07/07/20 14:49 Freq: Status: Active Protocol: Document 07/30/20 09:40 SAK (Rec: 07/30/20 10:31 SAK [id number]) Out-Patient Physical Therapy Visit Information Visit Information Visit Type Treatment Note Visit Note Gradually improving, I'm trying to be patient. Visit Start Time 09:39 Visit Stop Time 10:35 Total Visit Minutes 56 Visit Number 4 Evaluation Information Evaluation Date 07/14/20 Precautions Precautions PMH: concussion 2 years ago. PT-OP-B Current Condition Start: 07/07/20 14:49 Freq: Status: Active Protocol: Document 07/14/20 12:57 SAK (Rec: 07/14/20 13:41 SAK [id number]) Current Condition History of Current Condition Onset Date 4 months ago Current Complaints shoulder pain History of Current Condition Pulling shrimp pots, reachiing diagnonally overhead felt strain, onset of right shoulder pain. Has been doing ther ex, ROM good, strenth limited (states left feels stronger than his right). Concerned pain continues. Using ice pack after exercise, heat not helpful. Topical CBD helpful short term. Interrupts sleep. Painful with kayaking. 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 Prior Functional Status Baseline Function- ADL's Independent Baseline Function- Mobility Independent Baseline Function- Recreation/Hobbies Fishing, woodwork, Current Functional Impairments (Reported) Functional Limitations- ADL's painful Functional Limitations- Recreation/ painful Hobbies Personal Factors Other Personal Factors That May Effect PMH: left clavicle fracture, Therapy/Recovery concussion PT-OP-C Subjective Start: 07/07/20 14:49 Freq: Status: Active Protocol: Document 07/14/20 12:57 SAK (Rec: 07/14/20 13:41 SAK [id number]) Patient Questionnaires Quick Dash- Upper Extremity Quick Dash UE Score 18 OP-PT Pain Assessment Pain Assessment Grid Paper Pain Assessment Grid Completed Yes Location right AC joint Intensity 4 PT-OP-E Functional Tests Start: 07/07/20 14:49 Freq: Status: Active Protocol: Document 07/14/20 12:57 SAK (Rec: 07/15/20 09:36 [facility] [id number]) Functional Tests Apley's Scratch Test Action 1- Left posterior shoulder Action 1- Right posterior shoulder with somepain Action 2- Left T2 Action 2- Right T2 with pain Action 3- Left T7 Action 3- Right T7 withpain PT-OP-F Manual Assessment Start: 07/07/20 14:49 Freq: Status: Active Protocol: Document 07/14/20 12:57 [facility] (Rec: 07/15/20 09:36 [facility] [id number]) Manual Assessments Joint Mobility Assessment Joint Mobility Assessment decreased inferior and posterior glide right shoulder PT-OP-J Posture/Palpation/Skin Start: 07/07/20 14:49 Freq: Status: Active Protocol: Document 07/14/20 12:57 [facility] (Rec: 07/15/20 09:36 [facility] [id number]) Posture Evaluation Position Sitting Head/C-Spine Posture Forward Head T-Spine Posture Increased Kyphosis Shoulder Posture (L) Rounded,(R) Rounded Scapula Posture (L) Neutral,(R) Protracted Arm Posture (L) Internally Rotated,(R) Internally Rotated Palpation Assessment Location [place] Palpation Findings Soft Tissue Tightness,Trigger Point Palpation Details right greater than left PT-OP-K Range of Motion Start: 07/07/20 14:49 Freq: Status: Active Protocol: Document 07/14/20 12:57 [facility] (Rec: 07/15/20 09:36 [facility] [id number]) Cervical Spine Range of Motion Cervical Spine Active ROM Limitations Soft Tissue Tightness Comments mild limitation in left sidebending and rotation Shoulder Goniometric Range of Motion Shoulder Right Active Shoulder ROM WFL No Flexion 170 Abduction 165 Horizontal Adduction 45 External Rotation at 45 degrees 65 Abduction Internal Rotation Behind Back (text) T7 Left Active Shoulder ROM WFL Yes Shoulder ROM Limitations Shoulder ROM Limitations Soft Tissue Tightness,Pain Elbow/Forearm Range of Motion Elbow/Forearm daljit Elbow/Forearm ROM WFL Yes PT-OP-L Special Tests Start: 07/07/20 14:49 Freq: Status: Active Protocol: Document 07/14/20 12:57 [facility] (Rec: 07/15/20 09:36 [facility] [id number]) Special Tests Shoulder Special Tests Elevation Impingement Test Results positive right Drop Arm Rotator Cuff Test Results negative Belly Press Test Results negative PT-OP-M Strength Start: 07/07/20 14:49 Freq: Status: Active Protocol: Document 07/30/20 09:40 SAK (Rec: 07/30/20 10:31 [facility] [id number]) Shoulder Strength Shoulder Manual Muscle Testing Right Flexion 4 Good Extension 4+ Good+ Abduction (C5) 4 Good Adduction 4 Good External Rotation 4- Good- Internal Rotation 4 Good Horizontal Abduction 4 Good Horizontal Adduction 4 Good PT-OP-Q Treatments Start: 07/07/20 14:49 Freq: Status: Active Protocol: Document 07/30/20 09:40 [facility] (Rec: 07/30/20 10:31 [facility] [id number]) Cardio Equipment Upper Body Ergometer (UBE) Duration (Minutes) 6 RPM 60 Other fwd and bckwd Therapeutic Exercises Supine Exercises thoracic mobilization Equipment Used foam roll Reps/Minutes 2 min Sidelying Exercises open book Side bilateral Reps/Minutes 5x Comments with manual facilitation for segmental movement Standing Exercises shrimp pot lift sim Resistance L2 TB, 5# Reps/Minutes 5 min 90/90 shoulder ER Reps/Minutes 10x Comments at wall then with L1 TB lateral trunk and lat stretch Equipment Used wall Reps/Minutes 5x wall posture Reps/Minutes 8x Self-Care/Home Management Treatment Education Patient Education Body Mechanics,Home Exercise Program,Posture Other Education updated HEP, instruction in body mechanics during lifting for shoulder and back protection. Postural education with wall posture exercise. PT-OP-R Modalities Start: 07/07/20 14:49 Freq: Status: Active Protocol: Document 07/30/20 09:39 [facility] (Rec: 07/30/20 16:25 [facility] [id number]) Hot Pack/Cold Pack Treatment Cold Pack Location right shoulder Patient Position Hooklying Treatment Duration (minutes) 10 Patient Tolerance Good PT-OP-T Assessment and Plan Start: 07/07/20 14:49 Freq: Status: Active Protocol: Document 07/30/20 09:40 SAK (Rec: 07/30/20 10:31 [facility] [id number]) Physical Therapy Assessment Goals 3 Impairment weakness right shoulder Care Home Goal (LTG) Patient to demonstrate 5/5 muscle strength throughout right shouldre LTG Duration 09/12/20 2 Impairment pain right shoulder 4/10 with usual activities [employer] Goal (LTG) Pain no greater than 1-2/10 with usual activities LTG Duration 09/12/20 1 Impairment QuickDash UE disability questionnaire 18% [employer] Goal (LTG) Decrase QuickDash score to no greater than 5% LTG Duration 09/12/20 Assessment Summary Assessment Patient has difficulty with wall posture exercise requiring moderate verbal and manual cues. Progressing with shoulder ER strengthening. Demonstrated good understanding of importance of neutral posture and correct body mechanics with lifting especially with simulated shrimp pot lifting. Physical Therapy Plan Frequency and Duration Frequency of Treatment 2x/Week Duration of Treatment 8 Plan of Care Start Date 07/14/20 Plan of Care End Date 09/12/20 Therapeutic Interventions Therapeutic Interventions Home Exercise Program,Joint Mobilizations,Manual Therapy, Neuromuscular Re-education, Patient/Caregiver Education, Self-Care/Home Management,Soft Tissue Mobilization,Taping, Therapeutic Activities, Therapeutic Exercises Modalities Cold Pack/Ice Massage,Electric Stimulation,Iontophoresis, Ultrasound Next Visit Focus/Plan Next Note Type Treatment Note Next Visit Plan Shoulder MMT, review HEP. Manual techniques as indicated .
--- NOTE | 2020-08-13 11:13 | PT.OTN ---
Current Diagnoses Pain in right shoulder (08/13/20) Impingement syndrome of right shoulder (08/13/20) Weakness (08/13/20) Physical Therapy Treatment Note PT-OP-A Visit Information Start: 07/07/20 14:49 Freq: Status: Active Protocol: Document 08/13/20 11:04 SAK (Rec: 08/13/20 11:11 [facility] [id number]) Out-Patient Physical Therapy Visit Information Visit Information Visit Type Treatment Note Visit Start Time 09:00 Visit Stop Time 09:55 Total Visit Minutes 55 Visit Number 5 Evaluation Information Evaluation Date 07/14/20 Precautions Precautions PMH: concussion 2 years ago. PT-OP-B Current Condition Start: 07/07/20 14:49 Freq: Status: Active Protocol: Document 07/14/20 12:57 SAK (Rec: 07/14/20 13:41 SAK [id number]) Current Condition History of Current Condition Onset Date 4 months ago Current Complaints shoulder pain History of Current Condition Pulling shrimp pots, reachiing diagnonally overhead felt strain, onset of right shoulder pain. Has been doing ther ex, ROM good, strenth limited (states left feels stronger than his right). Concerned pain continues. Using ice pack after exercise, heat not helpful. Topical CBD helpful short term. Interrupts sleep. Painful with kayaking. 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 Prior Functional Status Baseline Function- ADL's Independent Baseline Function- Mobility Independent Baseline Function- Recreation/Hobbies Fishing, woodwork, Current Functional Impairments (Reported) Functional Limitations- ADL's painful Functional Limitations- Recreation/ painful Hobbies Personal Factors Other Personal Factors That May Effect PMH: left clavicle fracture, Therapy/Recovery concussion PT-OP-C Subjective Start: 07/07/20 14:49 Freq: Status: Active Protocol: Document 08/13/20 11:04 SAK (Rec: 08/13/20 11:11 [facility] [id number]) OP-PT Subjective Patient Comments Patient Comments Patient reports gradually improving, hardest exercise is wall posture and prone Y. Compliant to HEP PT-OP-E Functional Tests Start: 07/07/20 14:49 Freq: Status: Active Protocol: Document 07/14/20 12:57 SAK (Rec: 07/15/20 09:36 SAK [id number]) Functional Tests Apley's Scratch Test Action 1- Left posterior shoulder Action 1- Right posterior shoulder with somepain Action 2- Left T2 Action 2- Right T2 with pain Action 3- Left T7 Action 3- Right T7 withpain PT-OP-F Manual Assessment Start: 07/07/20 14:49 Freq: Status: Active Protocol: Document 07/14/20 12:57 SAK (Rec: 07/15/20 09:36 SAK [id number]) Manual Assessments Joint Mobility Assessment Joint Mobility Assessment decreased inferior and posterior glide right shoulder PT-OP-J Posture/Palpation/Skin Start: 07/07/20 14:49 Freq: Status: Active Protocol: Document 07/14/20 12:57 SAK (Rec: 07/15/20 09:36 [facility] [id number]) Posture Evaluation Position Sitting Head/C-Spine Posture Forward Head T-Spine Posture Increased Kyphosis Shoulder Posture (L) Rounded,(R) Rounded Scapula Posture (L) Neutral,(R) Protracted Arm Posture (L) Internally Rotated,(R) Internally Rotated Palpation Assessment Location [place] Palpation Findings Soft Tissue Tightness,Trigger Point Palpation Details right greater than left PT-OP-K Range of Motion Start: 07/07/20 14:49 Freq: Status: Active Protocol: Document 07/14/20 12:57 SAK (Rec: 07/15/20 09:36 [facility] [id number]) Cervical Spine Range of Motion Cervical Spine Active ROM Limitations Soft Tissue Tightness Comments mild limitation in left sidebending and rotation Shoulder Goniometric Range of Motion Shoulder Right Active Shoulder ROM WFL No Flexion 170 Abduction 165 Horizontal Adduction 45 External Rotation at 45 degrees 65 Abduction Internal Rotation Behind Back (text) T7 Left Active Shoulder ROM WFL Yes Shoulder ROM Limitations Shoulder ROM Limitations Soft Tissue Tightness,Pain Elbow/Forearm Range of Motion Elbow/Forearm daljit Elbow/Forearm ROM WFL Yes PT-OP-L Special Tests Start: 07/07/20 14:49 Freq: Status: Active Protocol: Document 07/14/20 12:57 SAK (Rec: 07/15/20 09:36 [facility] [id number]) Special Tests Shoulder Special Tests Elevation Impingement Test Results positive right Drop Arm Rotator Cuff Test Results negative Belly Press Test Results negative PT-OP-M Strength Start: 07/07/20 14:49 Freq: Status: Active Protocol: Document 07/30/20 09:40 [facility] (Rec: 07/30/20 10:31 [facility] [id number]) Shoulder Strength Shoulder Manual Muscle Testing Right Flexion 4 Good Extension 4+ Good+ Abduction (C5) 4 Good Adduction 4 Good External Rotation 4- Good- Internal Rotation 4 Good Horizontal Abduction 4 Good Horizontal Adduction 4 Good PT-OP-Q Treatments Start: 07/07/20 14:49 Freq: Status: Active Protocol: Document 08/13/20 11:04 [facility] (Rec: 08/13/20 11:11 [facility] [id number]) Cardio Equipment Upper Body Ergometer (UBE) Duration (Minutes) 6 RPM 60 Other fwd and bckwd Therapeutic Exercises Supine Exercises T,Y,I Reps/Minutes 10xea Comments active, then stretch into each end-range after 10th rep thoracic mobilization Equipment Used foam roll Reps/Minutes 2 min Comments horizontal at thoracic spine Sidelying Exercises foam roll subscap, lat Equipment Used foam roller Reps/Minutes 1 min lateral trunk and lat stretch Reps/Minutes 2x30 scapular clocks Reps/Minutes 10x2 Comments with manual facil first set, actively second set Standing Exercises wall posture Reps/Minutes 8x Comments cues for technique and alignment Manual Therapy Treatment Joint Mobilizations first rib Direction inferior glide Grade III Body Position Hooklying Self-Care/Home Management Treatment Education Patient Education Body Mechanics,Home Exercise Program,Posture Other Education updated written HEP handout PT-OP-R Modalities Start: 07/07/20 14:49 Freq: Status: Active Protocol: Document 08/13/20 11:04 [facility] (Rec: 08/13/20 11:11 [facility] [id number]) Hot Pack/Cold Pack Treatment Cold Pack Location right shoulder Patient Position Hooklying Treatment Duration (minutes) 10 Patient Tolerance Good PT-OP-T Assessment and Plan Start: 07/07/20 14:49 Freq: Status: Active Protocol: Document 08/13/20 11:04 [facility] (Rec: 08/13/20 11:11 [facility] [id number]) Physical Therapy Assessment Goals 3 Impairment weakness right shoulder Dry Cleaner Goal (LTG) Patient to demonstrate 5/5 muscle strength throughout right shouldre LTG Duration 09/12/20 2 Impairment pain right shoulder 4/10 with usual activities Dry Cleaner Goal (LTG) Pain no greater than 1-2/10 with usual activities LTG Duration 09/12/20 1 Impairment QuickDash UE disability questionnaire 18% Fpc Goal (LTG) Decrase QuickDash score to no greater than 5% LTG Duration 09/12/20 Progress Towards Goals Progress Towards Goals Progressing Toward Goals Assessment Summary Assessment Patient tolerated new ther ex well, and demonstrated good understanding; new written handout issued. Needed cues for alignment and technique with wall posture, sidelying ER. Physical Therapy Plan Frequency and Duration Frequency of Treatment 2x/Week Duration of Treatment 8 Plan of Care Start Date 07/14/20 Plan of Care End Date 09/12/20 Therapeutic Interventions Therapeutic Interventions Home Exercise Program,Joint Mobilizations,Manual Therapy, Neuromuscular Re-education, Patient/Caregiver Education, Self-Care/Home Management,Soft Tissue Mobilization,Taping, Therapeutic Activities, Therapeutic Exercises Modalities Cold Pack/Ice Massage,Electric Stimulation,Iontophoresis, Ultrasound Next Visit Focus/Plan Next Note Type Treatment Note Next Visit Plan Shoulder MMT, review HEP. Manual techniques as indicated .
--- NOTE | 2020-08-26 16:48 | PT.OTN ---
Current Diagnoses Pain in right shoulder (08/26/20) Impingement syndrome of right shoulder (08/26/20) Weakness (08/26/20) Physical Therapy Treatment Note PT-OP-A Visit Information Start: 07/07/20 14:49 Freq: Status: Active Protocol: Document 08/26/20 09:10 SAK (Rec: 08/26/20 09:47 [facility] [id number]) Out-Patient Physical Therapy Visit Information Visit Information Visit Type Treatment Note Visit Start Time 09:08 Visit Stop Time 09:57 Total Visit Minutes 49 Visit Number 6 Evaluation Information Evaluation Date 07/14/20 Precautions Precautions PMH: concussion 2 years ago. PT-OP-B Current Condition Start: 07/07/20 14:49 Freq: Status: Active Protocol: Document 07/14/20 12:57 SAK (Rec: 07/14/20 13:41 SAK [id number]) Current Condition History of Current Condition Onset Date 4 months ago Current Complaints shoulder pain History of Current Condition Pulling shrimp pots, reachiing diagnonally overhead felt strain, onset of right shoulder pain. Has been doing ther ex, ROM good, strenth limited (states left feels stronger than his right). Concerned pain continues. Using ice pack after exercise, heat not helpful. Topical CBD helpful short term. Interrupts sleep. Painful with kayaking. 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 Prior Functional Status Baseline Function- ADL's Independent Baseline Function- Mobility Independent Baseline Function- Recreation/Hobbies Fishing, woodwork, Current Functional Impairments (Reported) Functional Limitations- ADL's painful Functional Limitations- Recreation/ painful Hobbies Personal Factors Other Personal Factors That May Effect PMH: left clavicle fracture, Therapy/Recovery concussion PT-OP-C Subjective Start: 07/07/20 14:49 Freq: Status: Active Protocol: Document 08/26/20 09:10 SAK (Rec: 08/26/20 09:47 SAK [id number]) OP-PT Subjective Patient Comments Patient Comments Overall doing well, except about 2 weeks ago, was lifting to fill cart for boat and jammed his shoulder. Gradually has gotten better. Minimal to no pain today, just occasional pain in AC joint. PT-OP-E Functional Tests Start: 07/07/20 14:49 Freq: Status: Active Protocol: Document 07/14/20 12:57 SAK (Rec: 07/15/20 09:36 [facility] [id number]) Functional Tests Apley's Scratch Test Action 1- Left posterior shoulder Action 1- Right posterior shoulder with somepain Action 2- Left T2 Action 2- Right T2 with pain Action 3- Left T7 Action 3- Right T7 withpain PT-OP-F Manual Assessment Start: 07/07/20 14:49 Freq: Status: Active Protocol: Document 07/14/20 12:57 [facility] (Rec: 07/15/20 09:36 [facility] [id number]) Manual Assessments Joint Mobility Assessment Joint Mobility Assessment decreased inferior and posterior glide right shoulder PT-OP-J Posture/Palpation/Skin Start: 07/07/20 14:49 Freq: Status: Active Protocol: Document 07/14/20 12:57 [facility] (Rec: 07/15/20 09:36 [facility] [id number]) Posture Evaluation Position Sitting Head/C-Spine Posture Forward Head T-Spine Posture Increased Kyphosis Shoulder Posture (L) Rounded,(R) Rounded Scapula Posture (L) Neutral,(R) Protracted Arm Posture (L) Internally Rotated,(R) Internally Rotated Palpation Assessment Location [place] Palpation Findings Soft Tissue Tightness,Trigger Point Palpation Details right greater than left PT-OP-K Range of Motion Start: 07/07/20 14:49 Freq: Status: Active Protocol: Document 07/14/20 12:57 [facility] (Rec: 07/15/20 09:36 [facility] [id number]) Cervical Spine Range of Motion Cervical Spine Active ROM Limitations Soft Tissue Tightness Comments mild limitation in left sidebending and rotation Shoulder Goniometric Range of Motion Shoulder Right Active Shoulder ROM WFL No Flexion 170 Abduction 165 Horizontal Adduction 45 External Rotation at 45 degrees 65 Abduction Internal Rotation Behind Back (text) T7 Left Active Shoulder ROM WFL Yes Shoulder ROM Limitations Shoulder ROM Limitations Soft Tissue Tightness,Pain Elbow/Forearm Range of Motion Elbow/Forearm daljit Elbow/Forearm ROM WFL Yes PT-OP-L Special Tests Start: 07/07/20 14:49 Freq: Status: Active Protocol: Document 07/14/20 12:57 [facility] (Rec: 07/15/20 09:36 [facility] [id number]) Special Tests Shoulder Special Tests Elevation Impingement Test Results positive right Drop Arm Rotator Cuff Test Results negative Belly Press Test Results negative PT-OP-M Strength Start: 07/07/20 14:49 Freq: Status: Active Protocol: Document 07/30/20 09:40 SAK (Rec: 07/30/20 10:31 SAK [id number]) Shoulder Strength Shoulder Manual Muscle Testing Right Flexion 4 Good Extension 4+ Good+ Abduction (C5) 4 Good Adduction 4 Good External Rotation 4- Good- Internal Rotation 4 Good Horizontal Abduction 4 Good Horizontal Adduction 4 Good PT-OP-Q Treatments Start: 07/07/20 14:49 Freq: Status: Active Protocol: Document 08/26/20 09:10 [facility] (Rec: 08/26/20 09:47 [facility] [id number]) Cardio Equipment Upper Body Ergometer (UBE) Duration (Minutes) 6 RPM 60 Other fwd and bckwd Therapeutic Exercises Supine Exercises shoulder IR/ER Reps/Minutes 10x Sidelying Exercises lateral trunk and lat stretch Reps/Minutes 3x30 Comments issued written handout scapular clocks Reps/Minutes 10x2 Comments with manual facil first set, actively second set shoulder ER Resistance 2# Reps/Minutes 10x Comments verbal and manual cues for scapular stabilization Standing Exercises shrimp pot lift sim Resistance L3 TB Reps/Minutes 10x2 Comments emphasis on use of legs and weight shift with lift, core engagement Manual Therapy Treatment Joint Mobilizations GH Direction distraction, posterior glide Grade III Body Position Hooklying first rib Direction inferior glide Grade III Body Position Hooklying PT-OP-R Modalities Start: 07/07/20 14:49 Freq: Status: Active Protocol: Document 08/26/20 09:10 [facility] (Rec: 08/26/20 16:48 [facility] [id number]) Hot Pack/Cold Pack Treatment Cold Pack Location right shoulder Patient Position Hooklying Treatment Duration (minutes) 10 Patient Tolerance Good PT-OP-T Assessment and Plan Start: 07/07/20 14:49 Freq: Status: Active Protocol: Document 08/26/20 09:10 [facility] (Rec: 08/26/20 16:48 [facility] [id number]) Physical Therapy Assessment Goals 3 Impairment weakness right shoulder Intermediate Goal (LTG) Patient to demonstrate 5/5 muscle strength throughout right shouldre LTG Duration 09/12/20 2 Impairment pain right shoulder 4/10 with usual activities Intermediate Goal (LTG) Pain no greater than 1-2/10 with usual activities LTG Duration 09/12/20 1 Impairment QuickDash UE disability questionnaire 18% Intermediate Goal (LTG) Decrase QuickDash score to no greater than 5% LTG Duration 09/12/20 Progress Towards Goals Progress Towards Goals Progressing Toward Goals Assessment Summary Assessment Except for reported injury patient continues to make good progress, needed some correction to HEP ther ex but improved performance especially after instruction today in terms of core activation, scapular stabilization, and use of legs for lifting Physical Therapy Plan Frequency and Duration Frequency of Treatment 2x/Week Duration of Treatment 8 Plan of Care Start Date 07/14/20 Plan of Care End Date 09/12/20 Therapeutic Interventions Therapeutic Interventions Home Exercise Program,Joint Mobilizations,Manual Therapy, Neuromuscular Re-education, Patient/Caregiver Education, Self-Care/Home Management,Soft Tissue Mobilization,Taping, Therapeutic Activities, Therapeutic Exercises Modalities Cold Pack/Ice Massage,Electric Stimulation,Iontophoresis, Ultrasound Next Visit Focus/Plan Next Note Type Treatment Note Next Visit Plan MMT right shoulder, manual techniques, review HEP as needed. Anticipate discharge after next PT treatment.
--- NOTE | 2020-09-09 11:58 | PT.OTRE ---
Current Diagnoses Pain in right shoulder (09/09/20) Impingement syndrome of right shoulder (09/09/20) Weakness (09/09/20) Past Medical History (Last Updated 07/28/20 @ 11:29 by Josef Sinclair MD) Actinic keratosis of scalp (02/17/14) Anxiety (02/17/14) BPH (benign prostatic hyperplasia) (~2006) BPH w urinary obs/LUTS Central serous retinopathy (~1993) Daily headache (02/17/14) Diverticular disease (~1993) Erectile dysfunction Family history of prostate cancer Fractures (~1973) Hemorrhoid (~2003) Insomnia (~2010) Internal hemorrhoids (10/28/14) Irritable bowel syndrome Macrocytosis (~2012) Migraines (~2010) Nonallopathic lesion of cervical region (10/28/14) Postconcussion syndrome (02/17/14) Reflux (06/09/14) Seborrheic keratosis (02/17/14) Thyroid nodule (~2012) Tinnitus Tubular adenoma of colon (10/28/14) Vertigo Vertigo (~2010) Surgical History (Last Reviewed 07/28/20 @ 11:25 by Josef Sinclair MD) Inguinal hernia (~2013) Status post colonoscopy (~2014) Status post hernia repair (~1964) Visit Care Team Role Provider Type Brenton Alonso MD Primary Care Provider Physician Specialty: Internal Medicine Address: [address] [place] [address], [address], [address] Email: [email or web address] Carlos Nunes MD Attending Provider Physician Referring Provider Specialty: Orthopedic Surgery Address: [address] [place] [address], [id number] Email: [email or web address] Physical Therapy Re-Evaluation PT-OP-A Visit Information Start: 07/07/20 14:49 Freq: Status: Active Protocol: Document 09/09/20 10:33 SAK (Rec: 09/09/20 11:39 SAK [id number]) Out-Patient Physical Therapy Visit Information Visit Information Visit Type Treatment Note Visit Start Time 10:34 Visit Stop Time 11:31 Total Visit Minutes 57 Visit Number 7 Evaluation Information Evaluation Date 07/14/20 Precautions Precautions PMH: concussion 2 years ago. PT-OP-B Current Condition Start: 07/07/20 14:49 Freq: Status: Active Protocol: Document 07/14/20 12:57 [facility] (Rec: 07/14/20 13:41 [facility] [id number]) Current Condition History of Current Condition Onset Date 4 months ago Current Complaints shoulder pain History of Current Condition Pulling shrimp pots, reachiing diagnonally overhead felt strain, onset of right shoulder pain. Has been doing ther ex, ROM good, strenth limited (states left feels stronger than his right). Concerned pain continues. Using ice pack after exercise, heat not helpful. Topical CBD helpful short term. Interrupts sleep. Painful with kayaking. 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 Prior Functional Status Baseline Function- ADL's Independent Baseline Function- Mobility Independent Baseline Function- Recreation/Hobbies Fishing, woodwork, Current Functional Impairments (Reported) Functional Limitations- ADL's painful Functional Limitations- Recreation/ painful Hobbies Personal Factors Other Personal Factors That May Effect PMH: left clavicle fracture, Therapy/Recovery concussion PT-OP-C Subjective Start: 07/07/20 14:49 Freq: Status: Active Protocol: Document 09/09/20 10:33 [facility] (Rec: 09/09/20 11:39 [facility] [id number]) OP-PT Subjective Patient Comments Patient Comments Overall feels he continues to improve, needs more work on isolating movement of his scapula. Mild pain 2/10, some difficulty with reaching behind his back persists. PT-OP-E Functional Tests Start: 07/07/20 14:49 Freq: Status: Active Protocol: Document 07/14/20 12:57 [facility] (Rec: 07/15/20 09:36 [facility] [id number]) Functional Tests Apley's Scratch Test Action 1: The subject is instructed to touch the opposite shoulder with his/her hand. This motion checks Glenohumeral adduction, internal rotation , horizontal adduction and scapular protraction Action 2: The subject is instructed to place his/her arm overhead and reach behind the neck to touch his/her upper back. This motion checks Glenohumeral abduction, external rotation and scapular upward rotation and elevation. Action 3: The subject puts his/her hand on the lower back and reaches upward as far as possible. This motion checks glenohumeral adduction, internal rotation and scapular retraction with downward rotation Action 1- Left posterior shoulder Action 1- Right posterior shoulder with somepain Action 2- Left T2 Action 2- Right T2 with pain Action 3- Left T7 Action 3- Right T7 withpain PT-OP-F Manual Assessment Start: 07/07/20 14:49 Freq: Status: Active Protocol: Document 07/14/20 12:57 [facility] (Rec: 07/15/20 09:36 [facility] [id number]) Manual Assessments Joint Mobility Assessment Joint Mobility Assessment decreased inferior and posterior glide right shoulder PT-OP-J Posture/Palpation/Skin Start: 07/07/20 14:49 Freq: Status: Active Protocol: Document 07/14/20 12:57 [facility] (Rec: 07/15/20 09:36 [facility] [id number]) Posture Evaluation Position Sitting Head/C-Spine Posture Forward Head T-Spine Posture Increased Kyphosis Shoulder Posture (L) Rounded,(R) Rounded Scapula Posture (L) Neutral,(R) Protracted Arm Posture (L) Internally Rotated,(R) Internally Rotated Palpation Assessment Location [place] Palpation Findings Soft Tissue Tightness,Trigger Point Palpation Details right greater than left PT-OP-K Range of Motion Start: 07/07/20 14:49 Freq: Status: Active Protocol: Document 07/14/20 12:57 [facility] (Rec: 07/15/20 09:36 [facility] [id number]) Cervical Spine Range of Motion Cervical Spine Active ROM Limitations Soft Tissue Tightness Comments mild limitation in left sidebending and rotation Shoulder Goniometric Range of Motion Shoulder Measured in Degrees Right Active Shoulder ROM WFL No Flexion 170 Abduction 165 Horizontal Adduction 45 External Rotation at 45 degrees 65 Abduction Internal Rotation Behind Back (text) T7 Left Active Shoulder ROM WFL Yes Shoulder ROM Limitations Shoulder ROM Limitations Soft Tissue Tightness,Pain Elbow/Forearm Range of Motion Elbow/Forearm Measured in Degrees daljit Elbow/Forearm ROM WFL Yes PT-OP-L Special Tests Start: 07/07/20 14:49 Freq: Status: Active Protocol: Document 07/14/20 12:57 [facility] (Rec: 07/15/20 09:36 [facility] [id number]) Special Tests Shoulder Special Tests Elevation Impingement Test Results positive right Drop Arm Rotator Cuff Test Results negative Belly Press Test Results negative PT-OP-M Strength Start: 07/07/20 14:49 Freq: Status: Active Protocol: Document 07/30/20 09:40 SAK (Rec: 07/30/20 10:31 SAK [id number]) Shoulder Strength Shoulder Manual Muscle Testing Right Flexion 4 Good Extension 4+ Good+ Abduction (C5) 4 Good Adduction 4 Good External Rotation 4- Good- Internal Rotation 4 Good Horizontal Abduction 4 Good Horizontal Adduction 4 Good PT-OP-Q Treatments Start: 07/07/20 14:49 Freq: Status: Active Protocol: Document 09/09/20 10:33 SAK (Rec: 09/09/20 11:39 SAK [id number]) Cardio Equipment Upper Body Ergometer (UBE) Duration (Minutes) 6 RPM 60 Other fwd and bckwd Therapeutic Exercises Supine Exercises pec stretch Reps/Minutes 30x2 Comments manual Prone Exercises plank Reps/Minutes 30x2 Comments cues for form, muscle activation Sidelying Exercises sleeper stretch Reps/Minutes 2x30 Sitting Exercises lat shrug Comments HEP Standing Exercises shoulder extension Reps/Minutes 10x Comments emphasis on scapular movement row Reps/Minutes 10x Comments emphasis on scapular movement shoulder IR Standing Exercise Name contract/relax for increased shoulder IR Resistance L3 TB Reps/Minutes 4x10 Comments cues for retraction of shoulder, don't let shoulder come fwd 90/90 shoulder ER Resistance L3 TB Reps/Minutes 10x Comments cues to dec to L2 and use full ROM Manual Therapy Treatment Joint Mobilizations GH Direction distraction, posterior glide Grade III Body Position Hooklying PT-OP-R Modalities Start: 07/07/20 14:49 Freq: Status: Active Protocol: Document 08/26/20 09:10 [facility] (Rec: 08/26/20 16:48 [facility] [id number]) Hot Pack/Cold Pack Treatment Cold Pack Location right shoulder Patient Position Hooklying Treatment Duration (minutes) 10 Patient Tolerance Good PT-OP-T Assessment and Plan Start: 07/07/20 14:49 Freq: Status: Active Protocol: Document 09/09/20 10:33 SAK (Rec: 09/09/20 11:39 [facility] [id number]) Physical Therapy Assessment Goals 4 Impairment difficulty reaching behind his back for purposes of ADL's Bridge Operator Goal (LTG) Patient will be able to reach behind his back with right UE equal to left without c/o pain . 09/09/20: good goal progress with IR, 2 less than with left. LTG Duration 10/09/20 3 Impairment weakness right shoulder Retirement Goal (LTG) Patient to demonstrate 5/5 muscle strength throughout right shouldre 09/09/19: Good goal progress, shoulder ER 4+/5 otherwise 5/5 LTG Duration 10/09/20 2 Impairment pain right shoulder 4/10 with usual activities Bridge Operator Goal (LTG) Pain no greater than 1-2/10 with usual activities 09/09/20: good goal progress, currently 2/10, occasional increase but not as frequently LTG Duration 10/09/20 1 Impairment QuickDash UE disability questionnaire 18% Retirement Goal (LTG) Decrease QuickDash score to no greater than 5% as measure of improved shoulder function. 09/09/20: good goal progress - decreased to 7% LTG Duration 10/09/20 Progress Towards Goals Progress Towards Goals Progressing Toward Goals Assessment Summary Assessment Patient has continued to make good progress with decreasing pain, improving strength and flexibility. At today's treatment we made further modifications to his HEP, and ther ex technique especially related to scapular stabilization. Recommend follow-up appointment in 3-4 weeks to assure continued progress and full achievement of PT goals to allow him to resume his PLF. He is highly motivated and compliant to HEP . Physical Therapy Plan Frequency and Duration Frequency of Treatment 2x/Week Duration of Treatment 8 Plan of Care Start Date 09/09/20 Plan of Care End Date 10/09/20 Therapeutic Interventions Therapeutic Interventions Home Exercise Program,Joint Mobilizations,Manual Therapy, Neuromuscular Re-education, Patient/Caregiver Education, Self-Care/Home Management,Soft Tissue Mobilization,Taping, Therapeutic Activities, Therapeutic Exercises Modalities Cold Pack/Ice Massage,Electric Stimulation,Iontophoresis, Ultrasound Next Visit Focus/Plan Next Note Type Treatment Note Next Visit Plan Due to modification of HEP, and some continued limitation in internal rotation ( affecting ADL's) adifficultynd
--- NOTE | 2020-10-07 09:31 | PT.OTN ---
Current Diagnoses Pain in right shoulder (10/07/20) Impingement syndrome of right shoulder (10/07/20) Weakness (10/07/20) Physical Therapy Treatment Note PT-OP-A Visit Information Start: 07/07/20 14:49 Freq: Status: Active Protocol: Document 10/07/20 08:16 SAK (Rec: 10/07/20 09:05 [facility] [id number]) Out-Patient Physical Therapy Visit Information Visit Information Visit Type Treatment Note Visit Start Time 08:15 Visit Stop Time 09:00 Total Visit Minutes 45 Visit Number 8 Evaluation Information Evaluation Date 07/14/20 Precautions Precautions PMH: concussion 2 years ago. History of LBP PT-OP-B Current Condition Start: 07/07/20 14:49 Freq: Status: Active Protocol: Document 07/14/20 12:57 SAK (Rec: 07/14/20 13:41 SAK [id number]) Current Condition History of Current Condition Onset Date 4 months ago Current Complaints shoulder pain History of Current Condition Pulling shrimp pots, reachiing diagnonally overhead felt strain, onset of right shoulder pain. Has been doing ther ex, ROM good, strenth limited (states left feels stronger than his right). Concerned pain continues. Using ice pack after exercise, heat not helpful. Topical CBD helpful short term. Interrupts sleep. Painful with kayaking. 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 Prior Functional Status Baseline Function- ADL's Independent Baseline Function- Mobility Independent Baseline Function- Recreation/Hobbies Fishing, woodwork, Current Functional Impairments (Reported) Functional Limitations- ADL's painful Functional Limitations- Recreation/ painful Hobbies Personal Factors Other Personal Factors That May Effect PMH: left clavicle fracture, Therapy/Recovery concussion PT-OP-C Subjective Start: 07/07/20 14:49 Freq: Status: Active Protocol: Document 10/07/20 08:16 SAK (Rec: 10/07/20 09:05 SAK [id number]) OP-PT Subjective Patient Comments Patient Comments Reports hip and LBP is now taking precedence over his shoulder pain. Has had to modify his exercise. Uses heat, does more walking, stretches after waking. Saw Dr. Alonso who recommended PT. Shoulder continues to improve, doing HEP and [employer] ex. Reaching behind his back, doing contract/relax type exercise with band. PT-OP-E Functional Tests Start: 07/07/20 14:49 Freq: Status: Active Protocol: Document 07/14/20 12:57 [facility] (Rec: 07/15/20 09:36 [facility] [id number]) Functional Tests Apley's Scratch Test Action 1- Left posterior shoulder Action 1- Right posterior shoulder with somepain Action 2- Left T2 Action 2- Right T2 with pain Action 3- Left T7 Action 3- Right T7 withpain PT-OP-F Manual Assessment Start: 07/07/20 14:49 Freq: Status: Active Protocol: Document 07/14/20 12:57 SAK (Rec: 07/15/20 09:36 [facility] [id number]) Manual Assessments Joint Mobility Assessment Joint Mobility Assessment decreased inferior and posterior glide right shoulder PT-OP-J Posture/Palpation/Skin Start: 07/07/20 14:49 Freq: Status: Active Protocol: Document 07/14/20 12:57 [facility] (Rec: 07/15/20 09:36 [facility] [id number]) Posture Evaluation Position Sitting Head/C-Spine Posture Forward Head T-Spine Posture Increased Kyphosis Shoulder Posture (L) Rounded,(R) Rounded Scapula Posture (L) Neutral,(R) Protracted Arm Posture (L) Internally Rotated,(R) Internally Rotated Palpation Assessment Location [place] Palpation Findings Soft Tissue Tightness,Trigger Point Palpation Details right greater than left PT-OP-K Range of Motion Start: 07/07/20 14:49 Freq: Status: Active Protocol: Document 07/14/20 12:57 [facility] (Rec: 07/15/20 09:36 [facility] [id number]) Cervical Spine Range of Motion Cervical Spine Active ROM Limitations Soft Tissue Tightness Comments mild limitation in left sidebending and rotation Shoulder Goniometric Range of Motion Shoulder Right Active Shoulder ROM WFL No Flexion 170 Abduction 165 Horizontal Adduction 45 External Rotation at 45 degrees 65 Abduction Internal Rotation Behind Back (text) T7 Left Active Shoulder ROM WFL Yes Shoulder ROM Limitations Shoulder ROM Limitations Soft Tissue Tightness,Pain Elbow/Forearm Range of Motion Elbow/Forearm daljit Elbow/Forearm ROM WFL Yes PT-OP-L Special Tests Start: 07/07/20 14:49 Freq: Status: Active Protocol: Document 07/14/20 12:57 [facility] (Rec: 07/15/20 09:36 [facility] [id number]) Special Tests Shoulder Special Tests Elevation Impingement Test Results positive right Drop Arm Rotator Cuff Test Results negative Belly Press Test Results negative PT-OP-M Strength Start: 07/07/20 14:49 Freq: Status: Active Protocol: Document 07/30/20 09:40 [facility] (Rec: 07/30/20 10:31 [facility] [id number]) Shoulder Strength Shoulder Manual Muscle Testing Right Flexion 4 Good Extension 4+ Good+ Abduction (C5) 4 Good Adduction 4 Good External Rotation 4- Good- Internal Rotation 4 Good Horizontal Abduction 4 Good Horizontal Adduction 4 Good PT-OP-Q Treatments Start: 07/07/20 14:49 Freq: Status: Active Protocol: Document 10/07/20 08:16 [facility] (Rec: 10/07/20 09:05 [facility] [id number]) Cardio Equipment Upper Body Ergometer (UBE) Duration (Minutes) 7 RPM 60 Other fwd and bckwd Therapeutic Exercises Supine Exercises thoracic mobilization Equipment Used foam roll Reps/Minutes 2 min Comments horizontal at thoracic spine serratus punch Resistance 2# Reps/Minutes 10x Sidelying Exercises sleeper stretch Reps/Minutes 2x30 Standing Exercises shoulder IR Standing Exercise Name contract/relax for increased shoulder IR Resistance L3 TB Reps/Minutes 4x10 Comments cues for retraction of shoulder, don't let shoulder come fwd Other Exercises opp UE/LE lift Reps/Minutes 10x Comments cues for technique, don't overreach or overextend LE cat/cow Reps/Minutes 10x Self-Care/Home Management Treatment Education Patient Education Body Mechanics,Home Exercise Program,Posture Other Education updated written HEP handout PT-OP-R Modalities Start: 07/07/20 14:49 Freq: Status: Active Protocol: Document 08/26/20 09:10 [facility] (Rec: 08/26/20 16:48 [facility] [id number]) Hot Pack/Cold Pack Treatment Cold Pack Location right shoulder Patient Position Hooklying Treatment Duration (minutes) 10 Patient Tolerance Good PT-OP-T Assessment and Plan Start: 07/07/20 14:49 Freq: Status: Active Protocol: Document 10/07/20 08:16 [facility] (Rec: 10/07/20 09:05 [facility] [id number]) Physical Therapy Assessment Goals 4 Impairment difficulty reaching behind his back for purposes of ADL's Chha Goal (LTG) Patient will be able to reach behind his back with right UE equal to left without c/o pain . 09/09/20: good goal progress with IR, 2 less than with left. LTG Duration achieved 3 Impairment weakness right shoulder Chha Goal (LTG) Patient to demonstrate 5/5 muscle strength throughout right shouldre 09/09/19: Good goal progress, shoulder ER 4+/5 otherwise 5/5 LTG Duration achieved 2 Impairment pain right shoulder 4/10 with usual activities Detention Goal (LTG) Pain no greater than 1-2/10 with usual activities 09/09/20: good goal progress, currently 2/10, occasional increase but not as frequently LTG Duration achieved 1 Impairment QuickDash UE disability questionnaire 18% Chha Goal (LTG) Decrease QuickDash score to no greater than 5% as measure of improved shoulder function. 09/09/20: good goal progress - decreased to 7% LTG Duration goal achieved Assessment Summary Assessment All physical therapy goals met for shoulder, independent and compliant with HEP. Added quadriped UE/LE lift with cues for technique with good understanding. Reviewed importance of neutral posture and core stabilization with all exercises. Ask physician for PT order for LBP if doesnt improve. Physical Therapy Plan Discharge Physical Therapy Discharge Reasons Goals Met
--- NOTE | 2020-10-08 09:31 | PT.OTN ---
Current Diagnoses Pain in right shoulder (10/07/20) Impingement syndrome of right shoulder (10/07/20) Weakness (10/07/20) Physical Therapy Treatment Note PT-OP-A Visit Information Start: 07/07/20 14:49 Freq: Status: Active Protocol: Document 10/07/20 08:16 [facility] (Rec: 10/07/20 09:05 [facility] [id number]) Out-Patient Physical Therapy Visit Information Visit Information Visit Type Treatment Note Visit Start Time 08:15 Visit Stop Time 09:00 Total Visit Minutes 45 Visit Number 8 Evaluation Information Evaluation Date 07/14/20 Precautions Precautions PMH: concussion 2 years ago. History of LBP PT-OP-B Current Condition Start: 07/07/20 14:49 Freq: Status: Active Protocol: Document 07/14/20 12:57 [facility] (Rec: 07/14/20 13:41 [facility] [id number]) Current Condition History of Current Condition Onset Date 4 months ago Current Complaints shoulder pain History of Current Condition Pulling shrimp pots, reachiing diagnonally overhead felt strain, onset of right shoulder pain. Has been doing ther ex, ROM good, strenth limited (states left feels stronger than his right). Concerned pain continues. Using ice pack after exercise, heat not helpful. Topical CBD helpful short term. Interrupts sleep. Painful with kayaking. 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 Prior Functional Status Baseline Function- ADL's Independent Baseline Function- Mobility Independent Baseline Function- Recreation/Hobbies Fishing, woodwork, Current Functional Impairments (Reported) Functional Limitations- ADL's painful Functional Limitations- Recreation/ painful Hobbies Personal Factors Other Personal Factors That May Effect PMH: left clavicle fracture, Therapy/Recovery concussion PT-OP-C Subjective Start: 07/07/20 14:49 Freq: Status: Active Protocol: Document 10/07/20 08:16 [facility]AK (Rec: 10/07/20 09:05 [facility] [id number]) OP-PT Subjective Patient Comments Patient Comments Reports hip and LBP is now taking precedence over his shoulder pain. Has had to modify his exercise. Uses heat, does more walking, stretches after waking. Saw Dr. Alonso who recommended PT. Shoulder continues to improve, doing HEP and Total [employer] ex. Reaching behind his back, doing contract/relax type exercise with band. PT-OP-E Functional Tests Start: 07/07/20 14:49 Freq: Status: Active Protocol: Document 07/14/20 12:57 [facility] (Rec: 07/15/20 09:36 [facility] [id number]) Functional Tests Apley's Scratch Test Action 1- Left posterior shoulder Action 1- Right posterior shoulder with somepain Action 2- Left T2 Action 2- Right T2 with pain Action 3- Left T7 Action 3- Right T7 withpain PT-OP-F Manual Assessment Start: 07/07/20 14:49 Freq: Status: Active Protocol: Document 07/14/20 12:57 [facility] (Rec: 07/15/20 09:36 [facility] [id number]) Manual Assessments Joint Mobility Assessment Joint Mobility Assessment decreased inferior and posterior glide right shoulder PT-OP-J Posture/Palpation/Skin Start: 07/07/20 14:49 Freq: Status: Active Protocol: Document 07/14/20 12:57 [facility] (Rec: 07/15/20 09:36 [facility] [id number]) Posture Evaluation Position Sitting Head/C-Spine Posture Forward Head T-Spine Posture Increased Kyphosis Shoulder Posture (L) Rounded,(R) Rounded Scapula Posture (L) Neutral,(R) Protracted Arm Posture (L) Internally Rotated,(R) Internally Rotated Palpation Assessment Location [place] Palpation Findings Soft Tissue Tightness,Trigger Point Palpation Details right greater than left PT-OP-K Range of Motion Start: 07/07/20 14:49 Freq: Status: Active Protocol: Document 07/14/20 12:57 [facility] (Rec: 07/15/20 09:36 [facility] [id number]) Cervical Spine Range of Motion Cervical Spine Active ROM Limitations Soft Tissue Tightness Comments mild limitation in left sidebending and rotation Shoulder Goniometric Range of Motion Shoulder Right Active Shoulder ROM WFL No Flexion 170 Abduction 165 Horizontal Adduction 45 External Rotation at 45 degrees 65 Abduction Internal Rotation Behind Back (text) T7 Left Active Shoulder ROM WFL Yes Shoulder ROM Limitations Shoulder ROM Limitations Soft Tissue Tightness,Pain Elbow/Forearm Range of Motion Elbow/Forearm daljit Elbow/Forearm ROM WFL Yes PT-OP-L Special Tests Start: 07/07/20 14:49 Freq: Status: Active Protocol: Document 07/14/20 12:57 [facility] (Rec: 07/15/20 09:36 [facility] [id number]) Special Tests Shoulder Special Tests Elevation Impingement Test Results positive right Drop Arm Rotator Cuff Test Results negative Belly Press Test Results negative PT-OP-M Strength Start: 07/07/20 14:49 Freq: Status: Active Protocol: Document 07/30/20 09:40 [facility] (Rec: 07/30/20 10:31 [facility] [id number]) Shoulder Strength Shoulder Manual Muscle Testing Right Flexion 4 Good Extension 4+ Good+ Abduction (C5) 4 Good Adduction 4 Good External Rotation 4- Good- Internal Rotation 4 Good Horizontal Abduction 4 Good Horizontal Adduction 4 Good PT-OP-Q Treatments Start: 07/07/20 14:49 Freq: Status: Active Protocol: Document 10/07/20 08:16 [facility] (Rec: 10/07/20 09:05 [facility] [id number]) Cardio Equipment Upper Body Ergometer (UBE) Duration (Minutes) 7 RPM 60 Other fwd and bckwd Therapeutic Exercises Supine Exercises thoracic mobilization Equipment Used foam roll Reps/Minutes 2 min Comments horizontal at thoracic spine serratus punch Resistance 2# Reps/Minutes 10x Sidelying Exercises sleeper stretch Reps/Minutes 2x30 Standing Exercises shoulder IR Standing Exercise Name contract/relax for increased shoulder IR Resistance L3 TB Reps/Minutes 4x10 Comments cues for retraction of shoulder, don't let shoulder come fwd Other Exercises opp UE/LE lift Reps/Minutes 10x Comments cues for technique, don't overreach or overextend LE cat/cow Reps/Minutes 10x Self-Care/Home Management Treatment Education Patient Education Body Mechanics,Home Exercise Program,Posture Other Education updated written HEP handout PT-OP-R Modalities Start: 07/07/20 14:49 Freq: Status: Active Protocol: Document 08/26/20 09:10 [facility] (Rec: 08/26/20 16:48 [facility] [id number]) Hot Pack/Cold Pack Treatment Cold Pack Location right shoulder Patient Position Hooklying Treatment Duration (minutes) 10 Patient Tolerance Good PT-OP-T Assessment and Plan Start: 07/07/20 14:49 Freq: Status: Active Protocol: Document 10/07/20 08:16 [facility] (Rec: 10/07/20 09:05 [facility] [id number]) Physical Therapy Assessment Goals 4 Impairment difficulty reaching behind his back for purposes of ADL's Batter Mixer Goal (LTG) Patient will be able to reach behind his back with right UE equal to left without c/o pain . 09/09/20: good goal progress with IR, 2 less than with left. LTG Duration achieved 3 Impairment weakness right shoulder Batter Mixer Goal (LTG) Patient to demonstrate 5/5 muscle strength throughout right shouldre 09/09/19: Good goal progress, shoulder ER 4+/5 otherwise 5/5 LTG Duration achieved 2 Impairment pain right shoulder 4/10 with usual activities Alf Goal (LTG) Pain no greater than 1-2/10 with usual activities 09/09/20: good goal progress, currently 2/10, occasional increase but not as frequently LTG Duration achieved 1 Impairment QuickDash UE disability questionnaire 18% Batter Mixer Goal (LTG) Decrease QuickDash score to no greater than 5% as measure of improved shoulder function. 09/09/20: good goal progress - decreased to 7% LTG Duration goal achieved Assessment Summary Assessment All physical therapy goals met for shoulder, independent and compliant with HEP. Added quadriped UE/LE lift with cues for technique with good understanding. Reviewed importance of neutral posture and core stabilization with all exercises. Ask physician for PT order for LBP if doesnt improve. Physical Therapy Plan Discharge Physical Therapy Discharge Reasons Goals Met
== END 2020-10-16 08:19 ==
LOC: PHYS 08:15
PROVIDERS: PCP Internal Medicine; Referring Provider Orthopaedic Surgery; Visit Provider Orthopaedic Surgery
DX: M75.41 Impingement syndrome of right shoulder (principal); M25.511 Pain in right shoulder; R53.1 Weakness
CPT/HCPCS: 97010; 97110; 97140; 97162; 97535

== ENCOUNTER 2020-12-16 09:00 | Outpatient (RCR) | payer MEDICARE, SELFPAY ==
--- NOTE | 2020-10-20 12:01 | PT.OIE ---
Current Diagnoses Iliotibial band syndrome, left leg (10/20/20) Past Medical History (Last Updated 10/02/20 @ 10:24 by Brenton Alonso MD) Actinic keratosis of scalp (02/17/14) Anxiety (02/17/14) BPH (benign prostatic hyperplasia) (~2006) BPH w urinary obs/LUTS Central serous retinopathy (~1993) Daily headache (02/17/14) Diverticular disease (~1993) Erectile dysfunction Family history of prostate cancer Fractures (~1973) Hemorrhoid (~2003) Insomnia (~2010) Internal hemorrhoids (10/28/14) Irritable bowel syndrome Macrocytosis (~2012) Migraines (~2010) Nonallopathic lesion of cervical region (10/28/14) Postconcussion syndrome (02/17/14) Reflux (06/09/14) Seborrheic keratosis (02/17/14) Thyroid nodule (~2012) Tinnitus Tubular adenoma of colon (10/28/14) Vertigo Vertigo (~2010) Past Surgical History (Last Reviewed 07/28/20 @ 11:25 by Josef Sinclair MD) Inguinal hernia (~2013) Status post colonoscopy (~2014) Status post hernia repair (~1964) Visit Care Team Role Provider Type Brenton Alonso MD Attending Provider Physician Primary Care Provider Referring Provider Specialty: Internal Medicine Address: [address] [place] [address], [address], [facility] Email: [email or web address] Physical Therapy Initial Evaluation PT-OP-A Visit Information Start: 10/19/20 08:34 Freq: Status: Active Protocol: Document 10/20/20 10:34 [facility] (Rec: 10/20/20 11:25 [facility] [id number]) Out-Patient Physical Therapy Visit Information Visit Information Visit Type Initial Evaluation Visit Start Time 10:34 Visit Stop Time 11:30 Total Visit Minutes 56 Visit Number 1 Number of SOCIAL WELFARE ADMINISTRATOR Visits 0 Evaluation Information Evaluation Date 10/20/20 PT-OP-B Current Condition Start: 10/19/20 08:34 Freq: Status: Active Protocol: Document 10/20/20 10:34 [facility] (Rec: 10/20/20 11:25 [facility] [id number]) Current Condition History of Current Condition Onset Date 2 months Current Complaints left IT band pain History of Current Condition Initially burning pain ITband, then reports pain moved into his hip and low back. Continues workout on total gym , doing bird-dog exercise. Can't lay on left side due to pain even with memory foam. Thinks he may have aggravated by doing floor exercises on carpet only. Doing a lot of walking; about 30 miles per week. Hasn't tried ice. Has been doing stretching hip rotators, IT band and piriformis. History of fractured femur right 1973. Prior Treatments and Tests no imaging for lumbar spine or hip Future Testing and Treatments Planned to return to physician if pain persists. Treatment Goals Patient/Caregiver Goals eliminate pain, be able to lay on left side, and not have sleep interrupted due to pain left LE Prior Functional Status Baseline Function- ADL's Independent Baseline Function- Mobility Independent Baseline Function- Gait no limitations Baseline Function- Work/School retired Baseline Function- Recreation/Hobbies woodworking unlimited Current Functional Impairments (Reported) Functional Limitations- ADL's pain worst if lays on left side and when trying to sleep Functional Limitations- Mobility/Gait minimal pain Functional Limitations- Recreation/ increase in pain with some Hobbies woodworking activities Personal Factors Other Personal Factors That May Effect considering habitual Therapy/Recovery positioning and activities, needs further discussion PT-OP-C Subjective Start: 10/19/20 08:34 Freq: Status: Active Protocol: Document 10/20/20 10:34 [facility] (Rec: 10/21/20 09:40 [facility] [id number]) Patient Questionnaires Lower Extremity Functional Scale LEFS Score 84 PT-OP-E Functional Tests Start: 10/19/20 08:34 Freq: Status: Active Protocol: Document 10/20/20 10:34 [facility] (Rec: 10/21/20 09:40 [facility] [id number]) Functional Tests Squat Test Score able, no pain PT-OP-H Neuro Start: 10/19/20 08:34 Freq: Status: Active Protocol: Document 10/20/20 10:34 [facility] (Rec: 10/21/20 09:40 [facility] [id number]) Sensation Evaluation Gross Sensation Gross Sensation WNL PT-OP-J Posture/Palpation/Skin Start: 10/19/20 08:34 Freq: Status: Active Protocol: Document 10/20/20 10:34 [facility] (Rec: 10/21/20 09:40 [facility] [id number]) Posture Evaluation Position Standing Hip Posture (L) Externally Rotated,(R) Externally Rotated Knee Posture (L) Genu Varus Patellar Posture (R) Laterally Tilted Foot Arch (L) Low Arch,(R) Low Arch Palpation Assessment Location IT band Palpation Location daljit left greater than right Palpation Findings Soft Tissue Tightness, Tenderness PT-OP-K Range of Motion Start: 10/19/20 08:34 Freq: Status: Active Protocol: Document 10/20/20 10:34 [facility] (Rec: 10/21/20 09:40 [facility] [id number]) Hip Goniometric Range of Motion Hip Left Flexion w/Knee Flexed 130 Straight Leg Raise 78 Extension 5 Abduction 45 Internal Rotation 40 External Rotation 45 Right Flexion w/Knee Flexed 130 Straight Leg Raise 75 Extension 5 Abduction 45 Internal Rotation 45 External Rotation 40 Hip ROM Limitations Hip ROM Limitations Soft Tissue Tightness Knee Goniometric Range of Motion Knee daljit Knee ROM WFL Yes Ankle and Foot Goniometric Range of Motion Ankle and Foot daljit Dorsiflexion with Knee Extended 5 Plantarflexion 50 Inversion 25 Eversion 5 Comments weakness into eversion PT-OP-L Special Tests Start: 10/19/20 08:34 Freq: Status: Active Protocol: Document 10/20/20 10:34 [facility] (Rec: 10/21/20 09:40 [facility] [id number]) Special Tests Hip Special Tests Straight Leg Raise Test Results positive for muscle tightness only FIGUEROA Test Results negative daljit Heber Test Results positive bilaterally PT-OP-M Strength Start: 10/19/20 08:34 Freq: Status: Active Protocol: Document 10/21/20 11:59 [facility] (Rec: 10/21/20 12:01 [facility] [id number]) Hip Strength Hip Manual Muscle Testing Left Flexion (L2) 4+ Good+ Extension (S1) 4 Good Abduction 4 Good Adduction 4+ Good+ External Rotation 4- Good- Internal Rotation 4+ Good+ Right Flexion (L2) 4 Good Extension (S1) 4 Good Abduction 4 Good Adduction 4+ Good+ External Rotation 4 Good Internal Rotation 4+ Good+ Knee Strength Knee Manual Muscle Testing daljit Flexion (S2) 4+ Good+ Extension (L3) 4+ Good+ Ankle/Foot Strength Ankle and Foot Manual Muscle Testing Left Dorsiflexion (L4) 5 Normal Plantarflexion (S1) 5 Normal Inversion 4+ Good+ Eversion (S1) 3- Fair- Right Dorsiflexion (L4) 5 Normal Plantarflexion (S1) 5 Normal Inversion 4+ Good+ Eversion (S1) 3- Fair- PT-OP-Q Treatments Start: 10/19/20 08:34 Freq: Status: Active Protocol: Document 10/20/20 10:34 [facility] (Rec: 10/21/20 11:59 [facility] [id number]) Self-Care/Home Management Treatment Education Patient Education Home Exercise Program,Pain Management,Posture Other Education Issued written HEP self-assessment over the next few days regarding habitual postures, positions, activities that may contribute PT-OP-R Modalities Start: 10/19/20 08:34 Freq: Status: Active Protocol: Document 10/20/20 10:34 [facility] (Rec: 10/21/20 11:59 [facility] [id number]) Hot Pack/Cold Pack Treatment Hot Pack Location L/s, left IT band Patient Position Hooklying Treatment Duration (minutes) 15 Patient Tolerance Good PT-OP-T Assessment and Plan Start: 10/19/20 08:34 Freq: Status: Active Protocol: Document 10/20/20 10:34 [facility] (Rec: 10/21/20 11:59 [facility] [id number]) Physical Therapy Assessment Rehab Potential Rehabilitation Potential Good Evaluation Complexity Number of Personal Factors/Comorbidities 1-2 Number of Body Systems Impaired 1-2 Clinical Presentation at Evaluation Stable Impairments Impairments Activity Tolerance,Pain,Soft Tissue Mobility,Strength Goals 4 Impairment impairments in body mechanics Short Term Goal (STG) sInstruct in correct posture and body mechanics during his usual activities including current HEP, and usual activities including woodworking. STG Duration 11/04/20 Three Dimensional Map Modeler Goal (LTG) Patient to demonstrate neutral postural alignment and safe body mechanics for his usual activities. LTG Duration 12/20/20 3 Impairment muscle imbalances in hips Short Term Goal (STG) Patient to be independent in HEP to address muscle imbalances throughout bilateral LE's STG Duration 11/04/20 Three Dimensional Map Modeler Goal (LTG) Patient to demonstrate ROM WNL bilateral hips and strength of 5/5 throughout all muscle groups in hips LTG Duration 12/20/20 2 Impairment unable to lay or sleep on left side Alf Goal (LTG) Improve pain to allow patient to lay on left side for at least 1 hour at a time and not have sleep interrupted due to pain LTG Duration 12/20/20 1 Impairment pain left lateral LE and hip 4/10 on pain scale Short Term Goal (STG) decrease pain to no greater than 2/10 STG Duration 11/04/20 Three Dimensional Map Modeler Goal (LTG) Decrease pain to no greater than 1/10 LTG Duration 12/20/20 Assessment Summary Assessment Patient presents with function -limiting pain in his lateral thigh and hip which appears to be due to muscle imbalances throughout his hips, with impairments in body mechanics possibly contributing. Additionally, patient performs vigorous HEP and feel his technique or overdoing certain activities may also be contributing to his pain; will need further discussion and education to assure not over- doing his exercise or performing with poor form; patient's to take pictures of him performing a few exercises he has questions about. Patient is highly motivated and responds well to cues. Physical Therapy Plan Frequency and Duration Frequency of Treatment 2x/Week Duration of Treatment 8 wks Plan of Care Start Date 10/20/20 Plan of Care End Date 12/20/20 Therapeutic Interventions Therapeutic Interventions Aquatic Therapy,Home Exercise Program,Manual Therapy, Neuromuscular Re-education, Patient/Caregiver Education, Self-Care/Home Management,Soft Tissue Mobilization,Taping, Therapeutic Activities, Therapeutic Exercises Modalities Cold Pack/Ice Massage,Electric Stimulation,Hot Packs, Infrared Therapy,Iontophoresis ,Ultrasound Next Visit Focus/Plan Next Note Type Treatment Note Next Visit Plan Review HEP, any pictures able to take for education regarding technique and safety . Manual STM to IT band. Progress ther exercises as indicated to address muscle imbalances.
--- NOTE | 2020-10-20 12:02 | PT.OPPOC ---
Physical, Occupational & Speech Therapy At [facility] Current Diagnoses Iliotibial band syndrome, left leg (10/20/20) Visit Care Team Role Provider Type Brenton Alonso MD Attending Provider Physician Primary Care Provider Referring Provider Specialty: Internal Medicine Address: [address] [place] [address], [address], [address] Email: [email or web address] Plan Of Care PT-OP-T Assessment and Plan Start: 10/19/20 08:34 Freq: Status: Active Protocol: Document 10/20/20 10:34 [facility] (Rec: 10/21/20 11:59 [facility] [id number]) Physical Therapy Assessment Rehab Potential Rehabilitation Potential Good Evaluation Complexity Number of Personal Factors/Comorbidities 1-2 Number of Body Systems Impaired 1-2 Clinical Presentation at Evaluation Stable Impairments Impairments Activity Tolerance,Pain,Soft Tissue Mobility,Strength Goals 4 Impairment impairments in body mechanics Short Term Goal (STG) sInstruct in correct posture and body mechanics during his usual activities including current HEP, and usual activities including woodworking. STG Duration 11/04/20 Surveillance Observer Goal (LTG) Patient to demonstrate neutral postural alignment and safe body mechanics for his usual activities. LTG Duration 12/20/20 3 Impairment muscle imbalances in hips Short Term Goal (STG) Patient to be independent in HEP to address muscle imbalances throughout bilateral LE's STG Duration 11/04/20 Surveillance Observer Goal (LTG) Patient to demonstrate ROM WNL bilateral hips and strength of 5/5 throughout all muscle groups in hips LTG Duration 12/20/20 2 Impairment unable to lay or sleep on left side Surveillance Observer Goal (LTG) Improve pain to allow patient to lay on left side for at least 1 hour at a time and not have sleep interrupted due to pain LTG Duration 12/20/20 1 Impairment pain left lateral LE and hip 4/10 on pain scale Short Term Goal (STG) decrease pain to no greater than 2/10 STG Duration 11/04/20 Surveillance Observer Goal (LTG) Decrease pain to no greater than 1/10 LTG Duration 12/20/20 Assessment Summary Assessment Patient presents with function -limiting pain in his lateral thigh and hip which appears to be due to muscle imbalances throughout his hips, with impairments in body mechanics possibly contributing. Additionally, patient performs vigorous HEP and feel his technique or overdoing certain activities may also be contributing to his pain; will need further discussion and education to assure not over- doing his exercise or performing with poor form; patient's to take pictures of him performing a few exercises he has questions about. Patient is highly motivated and responds well to cues. Physical Therapy Plan Frequency and Duration Frequency of Treatment 2x/Week Duration of Treatment 8 wks Plan of Care Start Date 10/20/20 Plan of Care End Date 12/20/20 Therapeutic Interventions Therapeutic Interventions Aquatic Therapy,Home Exercise Program,Manual Therapy, Neuromuscular Re-education, Patient/Caregiver Education, Self-Care/Home Management,Soft Tissue Mobilization,Taping, Therapeutic Activities, Therapeutic Exercises Modalities Cold Pack/Ice Massage,Electric Stimulation,Hot Packs, Infrared Therapy,Iontophoresis ,Ultrasound Next Visit Focus/Plan Next Note Type Treatment Note Next Visit Plan Review HEP, any pictures able to take for education regarding technique and safety . Manual STM to IT band. Progress ther exercises as indicated to address muscle imbalances. Plan of Care Dates Plan of Care Start Date 10/20/20 Plan of Care End Date 12/20/20 Electronically Signed by: Nickie Lim, PT 10/21/20 [id number] Please Sign and Return: I have reviewed this Plan of Care and certify that the skilled therapy services above are required to meet the patient?s needs. Physician Signature Date Printed Name and Credentials Clinical Instructor Signature Printed Name and Credentials
--- NOTE | 2020-10-29 16:40 | PT.OTN ---
Current Diagnoses Iliotibial band syndrome, left leg (10/29/20) Physical Therapy Treatment Note PT-OP-A Visit Information Start: 10/19/20 08:34 Freq: Status: Active Protocol: Document 10/29/20 16:29 SAK (Rec: 10/29/20 16:40 [facility] [id number]) Out-Patient Physical Therapy Visit Information Visit Information Visit Type Treatment Note Visit Start Time 14:36 Visit Stop Time 15:30 Total Visit Minutes 54 Visit Number 2 Evaluation Information Evaluation Date 10/20/20 PT-OP-B Current Condition Start: 10/19/20 08:34 Freq: Status: Active Protocol: Document 10/20/20 10:34 SAK (Rec: 10/20/20 11:25 SAK [id number]) Current Condition History of Current Condition Onset Date 2 months Current Complaints left IT band pain History of Current Condition Initially burning pain ITband, then reports pain moved into his hip and low back. Continues workout on total gym , doing bird-dog exercise. Can't lay on left side due to pain even with memory foam. Thinks he may have aggravated by doing floor exercises on carpet only. Doing a lot of walking; about 30 miles per week. Hasn't tried ice. Has been doing stretching hip rotators, IT band and piriformis. History of fractured femur right 1973. Prior Treatments and Tests no imaging for lumbar spine or hip Future Testing and Treatments Planned to return to physician if pain persists. Treatment Goals Patient/Caregiver Goals eliminate pain, be able to lay on left side, and not have sleep interrupted due to pain left LE Prior Functional Status Baseline Function- ADL's Independent Baseline Function- Mobility Independent Baseline Function- Gait no limitations Baseline Function- Work/School retired Baseline Function- Recreation/Hobbies woodworking unlimited Current Functional Impairments (Reported) Functional Limitations- ADL's pain worst if lays on left side and when trying to sleep Functional Limitations- Mobility/Gait minimal pain Functional Limitations- Recreation/ increase in pain with some Hobbies woodworking activities Personal Factors Other Personal Factors That May Effect considering habitual Therapy/Recovery positioning and activities, needs further discussion PT-OP-C Subjective Start: 10/19/20 08:34 Freq: Status: Active Protocol: Document 10/29/20 16:29 SAK (Rec: 10/29/20 16:40 [facility] [id number]) OP-PT Subjective Patient Comments Patient Comments Patient reports has been doing HEP, got massage roller, maybe has been overdoing it with the massage roller, not sure. Also reports he fell off his total gym a couple days ago and is feeling some soreness in buttock. Still burning in IT band and some numbness and tingling same region. PT-OP-E Functional Tests Start: 10/19/20 08:34 Freq: Status: Active Protocol: Document 10/20/20 10:34 SAK (Rec: 10/21/20 09:40 [facility] [id number]) Functional Tests Squat Test Score able, no pain PT-OP-H Neuro Start: 10/19/20 08:34 Freq: Status: Active Protocol: Document 10/20/20 10:34 SAK (Rec: 10/21/20 09:40 [facility] [id number]) Sensation Evaluation Gross Sensation Gross Sensation WNL PT-OP-J Posture/Palpation/Skin Start: 10/19/20 08:34 Freq: Status: Active Protocol: Document 10/20/20 10:34 SAK (Rec: 10/21/20 09:40 [facility] [id number]) Posture Evaluation Position Standing Hip Posture (L) Externally Rotated,(R) Externally Rotated Knee Posture (L) Genu Varus Patellar Posture (R) Laterally Tilted Foot Arch (L) Low Arch,(R) Low Arch Palpation Assessment Location IT band Palpation Location daljit left greater than right Palpation Findings Soft Tissue Tightness, Tenderness PT-OP-K Range of Motion Start: 10/19/20 08:34 Freq: Status: Active Protocol: Document 10/20/20 10:34 SAK (Rec: 10/21/20 09:40 [facility] [id number]) Hip Goniometric Range of Motion Hip Left Flexion w/Knee Flexed 130 Straight Leg Raise 78 Extension 5 Abduction 45 Internal Rotation 40 External Rotation 45 Right Flexion w/Knee Flexed 130 Straight Leg Raise 75 Extension 5 Abduction 45 Internal Rotation 45 External Rotation 40 Hip ROM Limitations Hip ROM Limitations Soft Tissue Tightness Knee Goniometric Range of Motion Knee daljit Knee ROM WFL Yes Ankle and Foot Goniometric Range of Motion Ankle and Foot daljit Dorsiflexion with Knee Extended 5 Plantarflexion 50 Inversion 25 Eversion 5 Comments weakness into eversion PT-OP-L Special Tests Start: 10/19/20 08:34 Freq: Status: Active Protocol: Document 10/20/20 10:34 [facility] (Rec: 10/21/20 09:40 [facility] [id number]) Special Tests Hip Special Tests Straight Leg Raise Test Results positive for muscle tightness only FIGUEROA Test Results negative daljit Heber Test Results positive bilaterally PT-OP-M Strength Start: 10/19/20 08:34 Freq: Status: Active Protocol: Document 10/20/20 10:34 [facility] (Rec: 10/21/20 12:01 [facility] [id number]) Hip Strength Hip Manual Muscle Testing Left Flexion (L2) 4+ Good+ Extension (S1) 4 Good Abduction 4 Good Adduction 4+ Good+ External Rotation 4- Good- Internal Rotation 4+ Good+ Right Flexion (L2) 4 Good Extension (S1) 4 Good Abduction 4 Good Adduction 4+ Good+ External Rotation 4 Good Internal Rotation 4+ Good+ Knee Strength Knee Manual Muscle Testing daljit Flexion (S2) 4+ Good+ Extension (L3) 4+ Good+ Ankle/Foot Strength Ankle and Foot Manual Muscle Testing Left Dorsiflexion (L4) 5 Normal Plantarflexion (S1) 5 Normal Inversion 4+ Good+ Eversion (S1) 3- Fair- Right Dorsiflexion (L4) 5 Normal Plantarflexion (S1) 5 Normal Inversion 4+ Good+ Eversion (S1) 3- Fair- PT-OP-Q Treatments Start: 10/19/20 08:34 Freq: Status: Active Protocol: Document 10/29/20 16:29 [facility] (Rec: 10/29/20 16:40 [facility] [id number]) Therapeutic Exercises Supine Exercises Heber stretch Supine Exercise Name end of treatment table Reps/Minutes 2x30 Comments for hip flexor and quad stretch, manual assist for LE alignment IT band stretch Reps/Minutes 2x30 Comments manual Sidelying Exercises hip abduction Resistance L1 TB added Reps/Minutes 10x Comments cues for core activation and neutral LE alignment clamshell Resistance L1 TB added Reps/Minutes 10x Comments cues for core activation, no rolling back of hips Sitting Exercises lat shrug Reps/Minutes 10x Manual Therapy Treatment Soft Tissue Mobilization IT band, quad left Mobilization Type Myofascial Release,Rolling, Sustained Pressure Intensity/Depth Deep Body Position Sidelying Manual Traction lumbar spine Body Position Hooklying Reps/Duration 8 min Comments trial, patient reported no change in symptoms Self-Care/Home Management Treatment Education Patient Education Home Exercise Program,Pain Management,Posture Other Education added L1 TB to clamshell and hip abduction PT-OP-R Modalities Start: 10/19/20 08:34 Freq: Status: Active Protocol: Document 10/29/20 16:29 [facility] (Rec: 10/29/20 16:40 [facility] [id number]) Hot Pack/Cold Pack Treatment Hot Pack Location L/s, left IT band Patient Position Hooklying Treatment Duration (minutes) 15 Patient Tolerance Good PT-OP-T Assessment and Plan Start: 10/19/20 08:34 Freq: Status: Active Protocol: Document 10/29/20 16:29 [facility] (Rec: 10/29/20 16:40 [facility] [id number]) Physical Therapy Assessment Goals 4 Impairment impairments in body mechanics Short Term Goal (STG) sInstruct in correct posture and body mechanics during his usual activities including current HEP, and usual activities including woodworking. STG Duration 11/04/20 [employer] Goal (LTG) Patient to demonstrate neutral postural alignment and safe body mechanics for his usual activities. LTG Duration 12/20/20 3 Impairment muscle imbalances in hips Short Term Goal (STG) Patient to be independent in HEP to address muscle imbalances throughout bilateral LE's STG Duration 11/04/20 [employer] Goal (LTG) Patient to demonstrate ROM WNL bilateral hips and strength of 5/5 throughout all muscle groups in hips LTG Duration 12/20/20 2 Impairment unable to lay or sleep on left side Snf Goal (LTG) Improve pain to allow patient to lay on left side for at least 1 hour at a time and not have sleep interrupted due to pain LTG Duration 12/20/20 1 Impairment pain left lateral LE and hip 4/10 on pain scale Short Term Goal (STG) decrease pain to no greater than 2/10 STG Duration 11/04/20 [employer] Goal (LTG) Decrease pain to no greater than 1/10 LTG Duration 12/20/20 Physical Therapy Plan Frequency and Duration Frequency of Treatment 2x/Week Duration of Treatment 8 wks Plan of Care Start Date 10/20/20 Plan of Care End Date 12/20/20 Therapeutic Interventions Therapeutic Interventions Aquatic Therapy,Home Exercise Program,Manual Therapy, Neuromuscular Re-education, Patient/Caregiver Education, Self-Care/Home Management,Soft Tissue Mobilization,Taping, Therapeutic Activities, Therapeutic Exercises Modalities Cold Pack/Ice Massage,Electric Stimulation,Hot Packs, Infrared Therapy,Iontophoresis ,Ultrasound
--- NOTE | 2020-11-04 17:00 | PT.OTN ---
Current Diagnoses Iliotibial band syndrome, left leg (11/04/20) Physical Therapy Treatment Note PT-OP-A Visit Information Start: 10/19/20 08:34 Freq: Status: Active Protocol: Document 11/04/20 11:17 SAK (Rec: 11/04/20 12:57 [facility] [id number]) Out-Patient Physical Therapy Visit Information Visit Information Visit Type Treatment Note Visit Start Time 11:18 Visit Stop Time 12:12 Total Visit Minutes 56 Visit Number 3 Evaluation Information Evaluation Date 10/20/20 PT-OP-B Current Condition Start: 10/19/20 08:34 Freq: Status: Active Protocol: Document 10/20/20 10:34 SAK (Rec: 10/20/20 11:25 [facility]AK [id number]) Current Condition History of Current Condition Onset Date 2 months Current Complaints left IT band pain History of Current Condition Initially burning pain ITband, then reports pain moved into his hip and low back. Continues workout on total gym , doing bird-dog exercise. Can't lay on left side due to pain even with memory foam. Thinks he may have aggravated by doing floor exercises on carpet only. Doing a lot of walking; about 30 miles per week. Hasn't tried ice. Has been doing stretching hip rotators, IT band and piriformis. History of fractured femur right 1973. Prior Treatments and Tests no imaging for lumbar spine or hip Future Testing and Treatments Planned to return to physician if pain persists. Treatment Goals Patient/Caregiver Goals eliminate pain, be able to lay on left side, and not have sleep interrupted due to pain left LE Prior Functional Status Baseline Function- ADL's Independent Baseline Function- Mobility Independent Baseline Function- Gait no limitations Baseline Function- Work/School retired Baseline Function- Recreation/Hobbies woodworking unlimited Current Functional Impairments (Reported) Functional Limitations- ADL's pain worst if lays on left side and when trying to sleep Functional Limitations- Mobility/Gait minimal pain Functional Limitations- Recreation/ increase in pain with some Hobbies woodworking activities Personal Factors Other Personal Factors That May Effect considering habitual Therapy/Recovery positioning and activities, needs further discussion PT-OP-C Subjective Start: 10/19/20 08:34 Freq: Status: Active Protocol: Document 11/04/20 11:17 SAK (Rec: 11/04/20 17:00 [facility]AK [id number]) OP-PT Subjective Patient Comments Patient Comments Still feeling numbness lateral left LE and weakness left LE especially with hip flexion. Didn't feel any effect with manual traction. PT-OP-E Functional Tests Start: 10/19/20 08:34 Freq: Status: Active Protocol: Document 10/20/20 10:34 SAK (Rec: 10/21/20 09:40 [facility] [id number]) Functional Tests Squat Test Score able, no pain PT-OP-H Neuro Start: 10/19/20 08:34 Freq: Status: Active Protocol: Document 10/20/20 10:34 SAK (Rec: 10/21/20 09:40 [facility] [id number]) Sensation Evaluation Gross Sensation Gross Sensation WNL PT-OP-J Posture/Palpation/Skin Start: 10/19/20 08:34 Freq: Status: Active Protocol: Document 10/20/20 10:34 SAK (Rec: 10/21/20 09:40 [facility] [id number]) Posture Evaluation Position Standing Hip Posture (L) Externally Rotated,(R) Externally Rotated Knee Posture (L) Genu Varus Patellar Posture (R) Laterally Tilted Foot Arch (L) Low Arch,(R) Low Arch Palpation Assessment Location IT band Palpation Location daljit left greater than right Palpation Findings Soft Tissue Tightness, Tenderness PT-OP-K Range of Motion Start: 10/19/20 08:34 Freq: Status: Active Protocol: Document 10/20/20 10:34 SAK (Rec: 10/21/20 09:40 [facility] [id number]) Hip Goniometric Range of Motion Hip Left Flexion w/Knee Flexed 130 Straight Leg Raise 78 Extension 5 Abduction 45 Internal Rotation 40 External Rotation 45 Right Flexion w/Knee Flexed 130 Straight Leg Raise 75 Extension 5 Abduction 45 Internal Rotation 45 External Rotation 40 Hip ROM Limitations Hip ROM Limitations Soft Tissue Tightness Knee Goniometric Range of Motion Knee daljit Knee ROM WFL Yes Ankle and Foot Goniometric Range of Motion Ankle and Foot daljit Dorsiflexion with Knee Extended 5 Plantarflexion 50 Inversion 25 Eversion 5 Comments weakness into eversion PT-OP-L Special Tests Start: 10/19/20 08:34 Freq: Status: Active Protocol: Document 10/20/20 10:34 SAK (Rec: 10/21/20 09:40 [facility] [id number]) Special Tests Hip Special Tests Straight Leg Raise Test Results positive for muscle tightness only FIGUEROA Test Results negative daljit Heber Test Results positive bilaterally PT-OP-M Strength Start: 10/19/20 08:34 Freq: Status: Active Protocol: Document 10/20/20 10:34 [facility] (Rec: 10/21/20 12:01 [facility] [id number]) Hip Strength Hip Manual Muscle Testing Left Flexion (L2) 4+ Good+ Extension (S1) 4 Good Abduction 4 Good Adduction 4+ Good+ External Rotation 4- Good- Internal Rotation 4+ Good+ Right Flexion (L2) 4 Good Extension (S1) 4 Good Abduction 4 Good Adduction 4+ Good+ External Rotation 4 Good Internal Rotation 4+ Good+ Knee Strength Knee Manual Muscle Testing daljit Flexion (S2) 4+ Good+ Extension (L3) 4+ Good+ Ankle/Foot Strength Ankle and Foot Manual Muscle Testing Left Dorsiflexion (L4) 5 Normal Plantarflexion (S1) 5 Normal Inversion 4+ Good+ Eversion (S1) 3- Fair- Right Dorsiflexion (L4) 5 Normal Plantarflexion (S1) 5 Normal Inversion 4+ Good+ Eversion (S1) 3- Fair- PT-OP-Q Treatments Start: 10/19/20 08:34 Freq: Status: Active Protocol: Document 11/04/20 11:17 [facility] (Rec: 11/04/20 16:57 [facility] [id number]) Cardio Equipment Treadmill Duration (Minutes) 6 Speed 2.5 Incline 0 Other cues for alignment, core stabilization Therapeutic Exercises Supine Exercises Heber stretch Supine Exercise Name end of treatment table Reps/Minutes 2x30 Comments for hip flexor and quad stretch, manual assist for LE alignment IT band stretch Reps/Minutes 2x30 Comments manual Prone Exercises prone on elbows Reps/Minutes 2x30 Self-Care/Home Management Treatment Education Patient Education Home Exercise Program,Pain Management,Posture Other Education Consider disconcontineing Total gym incline crunch and diagnonal crunch PT-OP-R Modalities Start: 10/19/20 08:34 Freq: Status: Active Protocol: Document 11/04/20 11:17 [facility] (Rec: 11/04/20 16:57 [facility] [id number]) Spinal Traction Traction Treatment Lumbar Method Mechanical Patient Position Hooklying Force Applied (Pounds) 65 Intermittent Time On (Seconds) 30 Intermittent Time Off (Seconds) 10 Duration of Treatment (Minutes) 10 Heating Pad Applied Yes Traction Treatment Comment good tolerance PT-OP-T Assessment and Plan Start: 10/19/20 08:34 Freq: Status: Active Protocol: Document 11/04/20 11:17 [facility] (Rec: 11/04/20 12:57 [facility] [id number]) Physical Therapy Assessment Goals 4 Impairment impairments in body mechanics Short Term Goal (STG) sInstruct in correct posture and body mechanics during his usual activities including current HEP, and usual activities including woodworking. STG Duration 11/04/20 Care Home Goal (LTG) Patient to demonstrate neutral postural alignment and safe body mechanics for his usual activities. LTG Duration 12/20/20 3 Impairment muscle imbalances in hips Short Term Goal (STG) Patient to be independent in HEP to address muscle imbalances throughout bilateral LE's STG Duration 11/04/20 Care Home Goal (LTG) Patient to demonstrate ROM WNL bilateral hips and strength of 5/5 throughout all muscle groups in hips LTG Duration 12/20/20 2 Impairment unable to lay or sleep on left side [employer] Goal (LTG) Improve pain to allow patient to lay on left side for at least 1 hour at a time and not have sleep interrupted due to pain LTG Duration 12/20/20 1 Impairment pain left lateral LE and hip 4/10 on pain scale Short Term Goal (STG) decrease pain to no greater than 2/10 STG Duration 11/04/20 Care Home Goal (LTG) Decrease pain to no greater than 1/10 LTG Duration 12/20/20 Assessment Summary Assessment Patient didn't report decrease in symptoms with manual traction but mechanical traction tried today due to continued c/o numbness and weakness left LE with signs and symptoms consistent with possible nerve root impingment . Prior right femur fracture with surgical interventin and resultant change in alignment may be contributory as significant increase in ER in standing and walking which may be torquing pelvis and lumbar spine. Physical Therapy Plan Frequency and Duration Frequency of Treatment 2x/Week Duration of Treatment 8 wks Plan of Care Start Date 10/20/20 Plan of Care End Date 12/20/20 Therapeutic Interventions Therapeutic Interventions Aquatic Therapy,Home Exercise Program,Manual Therapy, Neuromuscular Re-education, Patient/Caregiver Education, Self-Care/Home Management,Soft Tissue Mobilization,Taping, Therapeutic Activities, Therapeutic Exercises Modalities Cold Pack/Ice Massage,Electric Stimulation,Hot Packs, Infrared Therapy,Iontophoresis ,Traction- Mechanical, Ultrasound Next Visit Focus/Plan Next Note Type Treatment Note Next Visit Plan ASses response to mechanical traction, consider having patient discontinue some of core exercises on Total Gym, possible lumbar joint ROM. Progression of ther ex as tolerated for left LE strengthening.
--- NOTE | 2020-11-11 11:16 | PT.OTN ---
Current Diagnoses Iliotibial band syndrome, left leg (11/11/20) Physical Therapy Treatment Note PT-OP-A Visit Information Start: 10/19/20 08:34 Freq: Status: Active Protocol: Document 11/11/20 09:01 SAK (Rec: 11/11/20 09:44 [facility] [id number]) Out-Patient Physical Therapy Visit Information Visit Information Visit Type Treatment Note Visit Start Time 09:00 Visit Stop Time 09:56 Total Visit Minutes 56 Visit Number 4 Evaluation Information Evaluation Date 10/20/20 PT-OP-B Current Condition Start: 10/19/20 08:34 Freq: Status: Active Protocol: Document 10/20/20 10:34 SAK (Rec: 10/20/20 11:25 SAK [id number]) Current Condition History of Current Condition Onset Date 2 months Current Complaints left IT band pain History of Current Condition Initially burning pain ITband, then reports pain moved into his hip and low back. Continues workout on total gym , doing bird-dog exercise. Can't lay on left side due to pain even with memory foam. Thinks he may have aggravated by doing floor exercises on carpet only. Doing a lot of walking; about 30 miles per week. Hasn't tried ice. Has been doing stretching hip rotators, IT band and piriformis. History of fractured femur right 1973. Prior Treatments and Tests no imaging for lumbar spine or hip Future Testing and Treatments Planned to return to physician if pain persists. Treatment Goals Patient/Caregiver Goals eliminate pain, be able to lay on left side, and not have sleep interrupted due to pain left LE Prior Functional Status Baseline Function- ADL's Independent Baseline Function- Mobility Independent Baseline Function- Gait no limitations Baseline Function- Work/School retired Baseline Function- Recreation/Hobbies woodworking unlimited Current Functional Impairments (Reported) Functional Limitations- ADL's pain worst if lays on left side and when trying to sleep Functional Limitations- Mobility/Gait minimal pain Functional Limitations- Recreation/ increase in pain with some Hobbies woodworking activities Personal Factors Other Personal Factors That May Effect considering habitual Therapy/Recovery positioning and activities, needs further discussion PT-OP-C Subjective Start: 10/19/20 08:34 Freq: Status: Active Protocol: Document 11/11/20 09:01 SAK (Rec: 11/11/20 09:44 SAK [id number]) OP-PT Subjective Patient Comments Patient Comments Feels less electrical pains in left leg, still feels some weakness. Feels traction helpful. Got some ankle weights to use. Has been doing less weight lifting due to getting boat ready. PT-OP-E Functional Tests Start: 10/19/20 08:34 Freq: Status: Active Protocol: Document 10/20/20 10:34 SAK (Rec: 10/21/20 09:40 SAK [id number]) Functional Tests Squat Test Score able, no pain PT-OP-H Neuro Start: 10/19/20 08:34 Freq: Status: Active Protocol: Document 10/20/20 10:34 SAK (Rec: 10/21/20 09:40 SAK [id number]) Sensation Evaluation Gross Sensation Gross Sensation WNL PT-OP-J Posture/Palpation/Skin Start: 10/19/20 08:34 Freq: Status: Active Protocol: Document 10/20/20 10:34 SAK (Rec: 10/21/20 09:40 SAK [id number]) Posture Evaluation Position Standing Hip Posture (L) Externally Rotated,(R) Externally Rotated Knee Posture (L) Genu Varus Patellar Posture (R) Laterally Tilted Foot Arch (L) Low Arch,(R) Low Arch Palpation Assessment Location IT band Palpation Location daljit left greater than right Palpation Findings Soft Tissue Tightness, Tenderness PT-OP-K Range of Motion Start: 10/19/20 08:34 Freq: Status: Active Protocol: Document 10/20/20 10:34 SAK (Rec: 10/21/20 09:40 SAK [id number]) Hip Goniometric Range of Motion Hip Left Flexion w/Knee Flexed 130 Straight Leg Raise 78 Extension 5 Abduction 45 Internal Rotation 40 External Rotation 45 Right Flexion w/Knee Flexed 130 Straight Leg Raise 75 Extension 5 Abduction 45 Internal Rotation 45 External Rotation 40 Hip ROM Limitations Hip ROM Limitations Soft Tissue Tightness Knee Goniometric Range of Motion Knee daljit Knee ROM WFL Yes Ankle and Foot Goniometric Range of Motion Ankle and Foot daljit Dorsiflexion with Knee Extended 5 Plantarflexion 50 Inversion 25 Eversion 5 Comments weakness into eversion PT-OP-L Special Tests Start: 10/19/20 08:34 Freq: Status: Active Protocol: Document 10/20/20 10:34 SAK (Rec: 10/21/20 09:40 SAK [id number]) Special Tests Hip Special Tests Straight Leg Raise Test Results positive for muscle tightness only FIGUEROA Test Results negative daljit Heber Test Results positive bilaterally PT-OP-M Strength Start: 10/19/20 08:34 Freq: Status: Active Protocol: Document 10/20/20 10:34 [facility] (Rec: 10/21/20 12:01 [facility] [id number]) Hip Strength Hip Manual Muscle Testing Left Flexion (L2) 4+ Good+ Extension (S1) 4 Good Abduction 4 Good Adduction 4+ Good+ External Rotation 4- Good- Internal Rotation 4+ Good+ Right Flexion (L2) 4 Good Extension (S1) 4 Good Abduction 4 Good Adduction 4+ Good+ External Rotation 4 Good Internal Rotation 4+ Good+ Knee Strength Knee Manual Muscle Testing daljit Flexion (S2) 4+ Good+ Extension (L3) 4+ Good+ Ankle/Foot Strength Ankle and Foot Manual Muscle Testing Left Dorsiflexion (L4) 5 Normal Plantarflexion (S1) 5 Normal Inversion 4+ Good+ Eversion (S1) 3- Fair- Right Dorsiflexion (L4) 5 Normal Plantarflexion (S1) 5 Normal Inversion 4+ Good+ Eversion (S1) 3- Fair- PT-OP-Q Treatments Start: 10/19/20 08:34 Freq: Status: Active Protocol: Document 11/11/20 09:01 [facility] (Rec: 11/11/20 09:44 [facility] [id number]) Therapeutic Exercises Supine Exercises segmental bridge Reps/Minutes 10x Comments cues for segmental movement single leg bridge Reps/Minutes 10x ea SLR Resistance 5# Reps/Minutes 10x Heber stretch Supine Exercise Name end of treatment table Reps/Minutes 2x30 Comments for hip flexor and quad stretch, manual assist for LE alignment IT band stretch Reps/Minutes 2x30 Comments manual Sidelying Exercises hip abduction Resistance 5# Reps/Minutes 10x Comments cues for core activation and neutral LE alignment clamshell Resistance 5# Reps/Minutes 10x Comments cues for core activation, no rolling back of hips Self-Care/Home Management Treatment Education Patient Education Home Exercise Program,Pain Management,Posture PT-OP-R Modalities Start: 10/19/20 08:34 Freq: Status: Active Protocol: Document 11/11/20 09:01 [facility] (Rec: 11/11/20 09:44 [facility] [id number]) Spinal Traction Traction Treatment Lumbar Method Mechanical Patient Position Hooklying Force Applied (Pounds) 65 Intermittent Time On (Seconds) 30 Intermittent Time Off (Seconds) 10 Duration of Treatment (Minutes) 10 Heating Pad Applied Yes Traction Treatment Comment good tolerance PT-OP-T Assessment and Plan Start: 10/19/20 08:34 Freq: Status: Active Protocol: Document 11/11/20 09:01 [facility] (Rec: 11/11/20 09:44 [facility] [id number]) Physical Therapy Assessment Goals 4 Impairment impairments in body mechanics Short Term Goal (STG) sInstruct in correct posture and body mechanics during his usual activities including current HEP, and usual activities including woodworking. STG Duration 11/04/20 Manager Of Merchandising Goal (LTG) Patient to demonstrate neutral postural alignment and safe body mechanics for his usual activities. LTG Duration 12/20/20 3 Impairment muscle imbalances in hips Short Term Goal (STG) Patient to be independent in HEP to address muscle imbalances throughout bilateral LE's STG Duration 11/04/20 Manager Of Merchandising Goal (LTG) Patient to demonstrate ROM WNL bilateral hips and strength of 5/5 throughout all muscle groups in hips LTG Duration 12/20/20 2 Impairment unable to lay or sleep on left side Manager Of Merchandising Goal (LTG) Improve pain to allow patient to lay on left side for at least 1 hour at a time and not have sleep interrupted due to pain LTG Duration 12/20/20 1 Impairment pain left lateral LE and hip 4/10 on pain scale Short Term Goal (STG) decrease pain to no greater than 2/10 STG Duration 11/04/20 Manager Of Merchandising Goal (LTG) Decrease pain to no greater than 1/10 LTG Duration 12/20/20 Assessment Summary Assessment Patient noting decreased pain after traction, continued today. Instructed in safe use of ankle weights with cues for alignment and core stabilization, progressed bridge to segmental and single leg. Instructed in single leg lift. Patient demonstrates good understanding. Physical Therapy Plan Frequency and Duration Frequency of Treatment 2x/Week Duration of Treatment 8 wks Plan of Care Start Date 10/20/20 Plan of Care End Date 12/20/20 Therapeutic Interventions Therapeutic Interventions Aquatic Therapy,Home Exercise Program,Manual Therapy, Neuromuscular Re-education, Patient/Caregiver Education, Self-Care/Home Management,Soft Tissue Mobilization,Taping, Therapeutic Activities, Therapeutic Exercises Modalities Cold Pack/Ice Massage,Electric Stimulation,Hot Packs, Infrared Therapy,Iontophoresis ,Traction- Mechanical, Ultrasound Next Visit Focus/Plan Next Note Type Treatment Note Next Visit Plan Continue PT per POC. Assess response to use of free weights, second treatment of traction.
--- NOTE | 2020-11-18 14:09 | PT.OTN ---
Current Diagnoses Iliotibial band syndrome, left leg (11/18/20) Physical Therapy Treatment Note PT-OP-A Visit Information Start: 10/19/20 08:34 Freq: Status: Active Protocol: Document 11/18/20 09:05 SAK (Rec: 11/18/20 09:52 [facility] [id number]) Out-Patient Physical Therapy Visit Information Visit Information Visit Type Treatment Note Visit Start Time 09:00 Visit Stop Time 09:56 Total Visit Minutes 56 Visit Number 4 Evaluation Information Evaluation Date 10/20/20 PT-OP-B Current Condition Start: 10/19/20 08:34 Freq: Status: Active Protocol: Document 10/20/20 10:34 SAK (Rec: 10/20/20 11:25 SAK [id number]) Current Condition History of Current Condition Onset Date 2 months Current Complaints left IT band pain History of Current Condition Initially burning pain ITband, then reports pain moved into his hip and low back. Continues workout on total gym , doing bird-dog exercise. Can't lay on left side due to pain even with memory foam. Thinks he may have aggravated by doing floor exercises on carpet only. Doing a lot of walking; about 30 miles per week. Hasn't tried ice. Has been doing stretching hip rotators, IT band and piriformis. History of fractured femur right 1973. Prior Treatments and Tests no imaging for lumbar spine or hip Future Testing and Treatments Planned to return to physician if pain persists. Treatment Goals Patient/Caregiver Goals eliminate pain, be able to lay on left side, and not have sleep interrupted due to pain left LE Prior Functional Status Baseline Function- ADL's Independent Baseline Function- Mobility Independent Baseline Function- Gait no limitations Baseline Function- Work/School retired Baseline Function- Recreation/Hobbies woodworking unlimited Current Functional Impairments (Reported) Functional Limitations- ADL's pain worst if lays on left side and when trying to sleep Functional Limitations- Mobility/Gait minimal pain Functional Limitations- Recreation/ increase in pain with some Hobbies woodworking activities Personal Factors Other Personal Factors That May Effect considering habitual Therapy/Recovery positioning and activities, needs further discussion PT-OP-C Subjective Start: 10/19/20 08:34 Freq: Status: Active Protocol: Document 11/18/20 09:05 SAK (Rec: 11/18/20 09:52 [facility] [id number]) OP-PT Subjective Patient Comments Patient Comments Overall doing better, a bit less numbness, got massage tool and doing 2x/day. Low back stiff, hard time getting as deep a stretch as feels like he needs. PT-OP-E Functional Tests Start: 10/19/20 08:34 Freq: Status: Active Protocol: Document 10/20/20 10:34 SAK (Rec: 10/21/20 09:40 SAK [id number]) Functional Tests Squat Test Score able, no pain PT-OP-H Neuro Start: 10/19/20 08:34 Freq: Status: Active Protocol: Document 10/20/20 10:34 SAK (Rec: 10/21/20 09:40 SAK [id number]) Sensation Evaluation Gross Sensation Gross Sensation WNL PT-OP-J Posture/Palpation/Skin Start: 10/19/20 08:34 Freq: Status: Active Protocol: Document 10/20/20 10:34 SAK (Rec: 10/21/20 09:40 SAK [id number]) Posture Evaluation Position Standing Hip Posture (L) Externally Rotated,(R) Externally Rotated Knee Posture (L) Genu Varus Patellar Posture (R) Laterally Tilted Foot Arch (L) Low Arch,(R) Low Arch Palpation Assessment Location IT band Palpation Location daljit left greater than right Palpation Findings Soft Tissue Tightness, Tenderness PT-OP-K Range of Motion Start: 10/19/20 08:34 Freq: Status: Active Protocol: Document 10/20/20 10:34 SAK (Rec: 10/21/20 09:40 SAK [id number]) Hip Goniometric Range of Motion Hip Left Flexion w/Knee Flexed 130 Straight Leg Raise 78 Extension 5 Abduction 45 Internal Rotation 40 External Rotation 45 Right Flexion w/Knee Flexed 130 Straight Leg Raise 75 Extension 5 Abduction 45 Internal Rotation 45 External Rotation 40 Hip ROM Limitations Hip ROM Limitations Soft Tissue Tightness Knee Goniometric Range of Motion Knee daljit Knee ROM WFL Yes Ankle and Foot Goniometric Range of Motion Ankle and Foot daljit Dorsiflexion with Knee Extended 5 Plantarflexion 50 Inversion 25 Eversion 5 Comments weakness into eversion PT-OP-L Special Tests Start: 10/19/20 08:34 Freq: Status: Active Protocol: Document 10/20/20 10:34 SAK (Rec: 10/21/20 09:40 SAK [id number]) Special Tests Hip Special Tests Straight Leg Raise Test Results positive for muscle tightness only FIGUEROA Test Results negative daljit Heber Test Results positive bilaterally PT-OP-M Strength Start: 10/19/20 08:34 Freq: Status: Active Protocol: Document 10/20/20 10:34 [facility] (Rec: 10/21/20 12:01 [facility] [id number]) Hip Strength Hip Manual Muscle Testing Left Flexion (L2) 4+ Good+ Extension (S1) 4 Good Abduction 4 Good Adduction 4+ Good+ External Rotation 4- Good- Internal Rotation 4+ Good+ Right Flexion (L2) 4 Good Extension (S1) 4 Good Abduction 4 Good Adduction 4+ Good+ External Rotation 4 Good Internal Rotation 4+ Good+ Knee Strength Knee Manual Muscle Testing daljit Flexion (S2) 4+ Good+ Extension (L3) 4+ Good+ Ankle/Foot Strength Ankle and Foot Manual Muscle Testing Left Dorsiflexion (L4) 5 Normal Plantarflexion (S1) 5 Normal Inversion 4+ Good+ Eversion (S1) 3- Fair- Right Dorsiflexion (L4) 5 Normal Plantarflexion (S1) 5 Normal Inversion 4+ Good+ Eversion (S1) 3- Fair- PT-OP-Q Treatments Start: 10/19/20 08:34 Freq: Status: Active Protocol: Document 11/18/20 09:05 [facility] (Rec: 11/18/20 09:52 [facility] [id number]) Therapeutic Exercises Supine Exercises happy baby stretch Reps/Minutes 2x30 segmental bridge Reps/Minutes 10x Comments cues for segmental movement single leg bridge Reps/Minutes 10x ea IT band stretch Reps/Minutes 2x30 Comments manual Prone Exercises prone on elbows Reps/Minutes 2x30 Standing Exercises William squat Reps/Minutes 2x30 single leg lift Reps/Minutes 10x happy baby Reps/Minutes 2x30 Other Exercises opp UE/LE lift Reps/Minutes 10x Comments cues for technique, don't overreach or overextend LE as this torques spine cat/cow Reps/Minutes 10x Self-Care/Home Management Treatment Education Patient Education Home Exercise Program,Pain Management,Posture PT-OP-R Modalities Start: 10/19/20 08:34 Freq: Status: Active Protocol: Document 11/18/20 09:05 [facility] (Rec: 11/18/20 09:52 [facility] [id number]) Spinal Traction Traction Treatment Lumbar Method Mechanical Patient Position Hooklying Force Applied (Pounds) 65 Intermittent Time On (Seconds) 30 Intermittent Time Off (Seconds) 10 Duration of Treatment (Minutes) 10 Heating Pad Applied Yes Traction Treatment Comment good tolerance PT-OP-T Assessment and Plan Start: 10/19/20 08:34 Freq: Status: Active Protocol: Document 11/18/20 09:05 [facility] (Rec: 11/18/20 09:52 [facility] [id number]) Physical Therapy Assessment Goals 4 Impairment impairments in body mechanics Short Term Goal (STG) sInstruct in correct posture and body mechanics during his usual activities including current HEP, and usual activities including woodworking. STG Duration 11/04/20 Insurance Claim Representative Goal (LTG) Patient to demonstrate neutral postural alignment and safe body mechanics for his usual activities. LTG Duration 12/20/20 3 Impairment muscle imbalances in hips Short Term Goal (STG) Patient to be independent in HEP to address muscle imbalances throughout bilateral LE's STG Duration 11/04/20 Insurance Claim Representative Goal (LTG) Patient to demonstrate ROM WNL bilateral hips and strength of 5/5 throughout all muscle groups in hips LTG Duration 12/20/20 2 Impairment unable to lay or sleep on left side Insurance Claim Representative Goal (LTG) Improve pain to allow patient to lay on left side for at least 1 hour at a time and not have sleep interrupted due to pain LTG Duration 12/20/20 1 Impairment pain left lateral LE and hip 4/10 on pain scale Short Term Goal (STG) decrease pain to no greater than 2/10 STG Duration 11/04/20 Jail Goal (LTG) Decrease pain to no greater than 1/10 LTG Duration 12/20/20 Assessment Summary Assessment Patient responded well to happy baby, very challenged by single leg lift with cues required for keeping LE in line with spine but good challenge; needed to have UE support available. Decreasing symptoms and good compliance to HEP. Physical Therapy Plan Frequency and Duration Frequency of Treatment 2x/Week Duration of Treatment 8 wks Plan of Care Start Date 10/20/20 Plan of Care End Date 12/20/20 Therapeutic Interventions Therapeutic Interventions Aquatic Therapy,Home Exercise Program,Manual Therapy, Neuromuscular Re-education, Patient/Caregiver Education, Self-Care/Home Management,Soft Tissue Mobilization,Taping, Therapeutic Activities, Therapeutic Exercises Modalities Cold Pack/Ice Massage,Electric Stimulation,Hot Packs, Infrared Therapy,Iontophoresis ,Traction- Mechanical, Ultrasound Next Visit Focus/Plan Next Note Type Treatment Note Next Visit Plan Review single leg lift and happy baby stretch. Possible manual techniques to decrease soft tissue tightness and possible joint mobs to l/ s.
--- NOTE | 2020-12-16 15:34 | PT.OTN ---
Current Diagnoses Iliotibial band syndrome, left leg (12/16/20) Physical Therapy Treatment Note PT-OP-A Visit Information Start: 10/19/20 08:34 Freq: Status: Active Protocol: Document 12/16/20 09:03 [facility] (Rec: 12/16/20 09:47 [facility] [id number]) Out-Patient Physical Therapy Visit Information Visit Information Visit Type Treatment Note Visit Start Time 13:00 Visit Stop Time 13:55 Total Visit Minutes 55 Visit Number 6 PT-OP-B Current Condition Start: 10/19/20 08:34 Freq: Status: Active Protocol: Document 10/20/20 10:34 [facility] (Rec: 10/20/20 11:25 [facility] [id number]) Current Condition History of Current Condition Onset Date 2 months Current Complaints left IT band pain History of Current Condition Initially burning pain ITband, then reports pain moved into his hip and low back. Continues workout on total gym , doing bird-dog exercise. Can't lay on left side due to pain even with memory foam. Thinks he may have aggravated by doing floor exercises on carpet only. Doing a lot of walking; about 30 miles per week. Hasn't tried ice. Has been doing stretching hip rotators, IT band and piriformis. History of fractured femur right 1973. Prior Treatments and Tests no imaging for lumbar spine or hip Future Testing and Treatments Planned to return to physician if pain persists. Treatment Goals Patient/Caregiver Goals eliminate pain, be able to lay on left side, and not have sleep interrupted due to pain left LE Prior Functional Status Baseline Function- ADL's Independent Baseline Function- Mobility Independent Baseline Function- Gait no limitations Baseline Function- Work/School retired Baseline Function- Recreation/Hobbies woodworking unlimited Current Functional Impairments (Reported) Functional Limitations- ADL's pain worst if lays on left side and when trying to sleep Functional Limitations- Mobility/Gait minimal pain Functional Limitations- Recreation/ increase in pain with some Hobbies woodworking activities Personal Factors Other Personal Factors That May Effect considering habitual Therapy/Recovery positioning and activities, needs further discussion PT-OP-C Subjective Start: 10/19/20 08:34 Freq: Status: Active Protocol: Document 12/16/20 09:03 [facility] (Rec: 12/16/20 09:47 [facility] [id number]) OP-PT Subjective Patient Comments Patient Comments 4 days of shrimping, modified some activities, by day 4 some low back spasms. -11/30. Still numb lateral left thigh, no stabbing or electrical pains as prevously. PT-OP-E Functional Tests Start: 10/19/20 08:34 Freq: Status: Active Protocol: Document 10/20/20 10:34 [facility] (Rec: 10/21/20 09:40 [facility] [id number]) Functional Tests Squat Test Score able, no pain PT-OP-H Neuro Start: 10/19/20 08:34 Freq: Status: Active Protocol: Document 10/20/20 10:34 [facility] (Rec: 10/21/20 09:40 [facility] [id number]) Sensation Evaluation Gross Sensation Gross Sensation WNL PT-OP-J Posture/Palpation/Skin Start: 10/19/20 08:34 Freq: Status: Active Protocol: Document 10/20/20 10:34 [facility] (Rec: 10/21/20 09:40 [facility] [id number]) Posture Evaluation Position Standing Hip Posture (L) Externally Rotated,(R) Externally Rotated Knee Posture (L) Genu Varus Patellar Posture (R) Laterally Tilted Foot Arch (L) Low Arch,(R) Low Arch Palpation Assessment Location IT band Palpation Location daljit left greater than right Palpation Findings Soft Tissue Tightness, Tenderness PT-OP-K Range of Motion Start: 10/19/20 08:34 Freq: Status: Active Protocol: Document 12/16/20 15:28 [facility] (Rec: 12/16/20 15:34 [facility] [id number]) Hip Goniometric Range of Motion Hip Left Flexion w/Knee Flexed 130 Straight Leg Raise 80 Extension 10 Abduction 45 Internal Rotation 45 External Rotation 45 Right Flexion w/Knee Flexed 130 Straight Leg Raise 80 Extension 10 Abduction 45 Internal Rotation 45 External Rotation 40 PT-OP-L Special Tests Start: 10/19/20 08:34 Freq: Status: Active Protocol: Document 10/20/20 10:34 [facility] (Rec: 10/21/20 09:40 [facility] [id number]) Special Tests Hip Special Tests Straight Leg Raise Test Results positive for muscle tightness only FIGUEROA Test Results negative daljit Heber Test Results positive bilaterally PT-OP-M Strength Start: 10/19/20 08:34 Freq: Status: Active Protocol: Document 12/16/20 15:28 [facility] (Rec: 12/16/20 15:34 [facility] [id number]) Hip Strength Hip Manual Muscle Testing Left Flexion (L2) 4+ Good+ Extension (S1) 4+ Good+ Abduction 5 Normal Adduction 4+ Good+ External Rotation 4+ Good+ Internal Rotation 4+ Good+ Right Flexion (L2) 4+ Good+ Extension (S1) 4+ Good+ Abduction 5 Normal Adduction 4+ Good+ External Rotation 4+ Good+ Internal Rotation 4+ Good+ Knee Strength Knee Manual Muscle Testing daljit Flexion (S2) 5 Normal Extension (L3) 5 Normal PT-OP-Q Treatments Start: 10/19/20 08:34 Freq: Status: Active Protocol: Document 12/16/20 15:28 [facility] (Rec: 12/16/20 15:34 [facility] [id number]) Therapeutic Exercises Supine Exercises happy baby stretch Reps/Minutes 2x30 Standing Exercises William squat Reps/Minutes 1x30 single leg lift Reps/Minutes 10x ea LE Other Exercises child's pose Reps/Minutes 2x30 Comments forward and lateral Manual Therapy Treatment Soft Tissue Mobilization lumbar paraspinals Mobilization Type Myofascial Release,Strumming, Sustained Pressure Intensity/Depth Deep Body Position Sidelying IT band, quad left Mobilization Type Instrument Assisted,Rolling, Sustained Pressure Intensity/Depth Deep Body Position Sidelying Other Other Manual Treatments MMT Self-Care/Home Management Treatment Education Patient Education Body Mechanics,Home Exercise Program,Pain Management, Posture Other Education body mechanics for shrimping activities as patient is going out again soon. Instructed to also wear his back brace for increased support, remember to ice and stretch after that heavy activity. PT-OP-R Modalities Start: 10/19/20 08:34 Freq: Status: Active Protocol: Document 12/16/20 15:28 [facility] (Rec: 12/16/20 15:34 [facility] [id number]) Spinal Traction Traction Treatment Lumbar Traction Treatment Comment patient reporting not sure helpful PT-OP-T Assessment and Plan Start: 10/19/20 08:34 Freq: Status: Active Protocol: Document 12/16/20 09:03 [facility] (Rec: 12/16/20 09:47 [facility] [id number]) Physical Therapy Assessment Goals 4 Impairment impairments in body mechanics Short Term Goal (STG) sInstruct in correct posture and body mechanics during his usual activities including current HEP, and usual activities including woodworking. STG Duration goal met Link Trainer Goal (LTG) Patient to demonstrate neutral postural alignment and safe body mechanics for his usual activities. LTG Duration goal met 3 Impairment muscle imbalances in hips Short Term Goal (STG) Patient to be independent in HEP to address muscle imbalances throughout bilateral LE's STG Duration goal met Fdc Goal (LTG) Patient to demonstrate ROM WNL bilateral hips and strength of 5/5 throughout all muscle groups in hips 12/16/20: mostly met, though still some weakness left hip abduction 2 Impairment unable to lay or sleep on left side Fdc Goal (LTG) Improve pain to allow patient to lay on left side for at least 1 hour at a time and not have sleep interrupted due to pain LTG Duration 12/20/20goal met 1 Impairment pain left lateral LE and hip 4/10 on pain scale Short Term Goal (STG) decrease pain to no greater than 2/10 STG Duration mostly met except with increase in heavy activity Fdc Goal (LTG) Decrease pain to no greater than 1/10 LTG Duration not fully met due to patient's heavy activity level recently Assessment Summary Assessment Goals mostly met, patient demonsrating good understanding of activity modifications, use of legs, core stabilization, weight- shifting. Continue to encourage him to pace his activity more, not overdo. He demonstrates good understanding of self-care of ice, heat, stretching when pain exacerbated, though follow-through variable. At this time he is independent with HEP and self-care and no further PT needs are identified. May benefit from further PT in the future. Physical Therapy Plan Discharge Physical Therapy Discharge Comments Goals mostly met, patient demonsrating good understanding of activity modifications, use of legs, core stabilization, weight- shifting. Continue to encourage him to pace his activity more, not overdo. He demonstrates good understanding of self-care of ice, heat, stretching when pain exacerbated, though follow-through variable. At this time he is independent with HEP and self-care and no further PT needs are identified. May benefit from further PT in the future.
== END 2020-12-17 08:33 | disposition home or self-care (01) ==
LOC: PHYS 09:00
PROVIDERS: PCP Internal Medicine; Referring Provider Internal Medicine; Visit Provider Internal Medicine
DX: M76.32 Iliotibial band syndrome, left leg (principal)
CPT/HCPCS: 97010; 97012; 97110; 97140; 97161; 97535

== ENCOUNTER → 2020-12-25 08:57 | Outpatient (CLI) | payer MEDICARE, SELFPAY ==
[2020-12-25 10:23] LABS: COVID19 -Nasal RAPID Negative (Negative)
== END ==
PROVIDERS: PCP Internal Medicine; Visit Provider Surgery
DX: Z20.822 Contact with and (suspected) exposure to COVID-19 (principal)
CPT/HCPCS: 87635; C9803

== ENCOUNTER 2020-12-28 08:51 | Day surgery (SDC) | payer MEDICARE, SELFPAY ==
[2020-12-28 09:39] VITALS: BP 114/66; PULSE 68; RESP 12; TEMP 36.5; O2SAT 100; BMI 21.1
[2020-12-28] MEDS: LACTATED RINGERS 1,000 ML 200 ML IV (09:53)
--- NOTE | 2020-12-28 10:19 | PM.HP.1 ---
History of Present Illness History of Present Illness Date Patient Seen: 12/28/20 Time Patient Seen: 10:20 Chief complaint: SCREENING COLONOSCOPY Narrative: The patient presents for colorectal sreening. His father developed colon cancer at age 50. This is his 7th colonoscopy last one was 6 years ago notable for benign polyp. No personal history of colon cancer. On further history denies any recent gastrointestinal symptoms. No nausea, vomiting, abdominal pain, loss of appetite, unexplained weight loss, change in bowel habits, diarrhea, constipation, melena. Patient History Medical History Actinic keratosis of scalp (02/17/14) Anxiety (02/17/14) BPH (benign prostatic hyperplasia) (~2006) BPH w urinary obs/LUTS Central serous retinopathy (~1993) Daily headache (02/17/14) Diverticular disease (~1993) Erectile dysfunction Family history of prostate cancer Fractures (~1973) Hemorrhoid (~2003) Insomnia (~2010) Internal hemorrhoids (10/28/14) Irritable bowel syndrome Macrocytosis (~2012) Migraines (~2010) Nonallopathic lesion of cervical region (10/28/14) Postconcussion syndrome (02/17/14) Reflux (06/09/14) Seborrheic keratosis (02/17/14) Thyroid nodule (~2012) Tinnitus Tubular adenoma of colon (10/28/14) Vertigo Vertigo (~2010) Surgical History Inguinal hernia (~2013) Status post colonoscopy (~2014) Status post hernia repair (~1964) Family & Social History Family History Brother Age: 73 Prostate cancer Father Parkinson disease Colon cancer Cancer Grandfather CAD (coronary artery disease) Diabetes mellitus Grandmother CAD (coronary artery disease) Diabetes mellitus Mother Age: 95 Hypertension Osteoarthritis GERD (gastroesophageal reflux disease) Overweight Hearing impaired UTI (urinary tract infection) Grandmother History of blood clots Social History: household members spouse lives independently Yes caregiver/support person No Tobacco & Substance use: Tobacco type cigarettes Smoking Status Former smoker alcohol intake current alcohol intake frequency 0-2 drinks per day Substance Use Type does not use Meds Home Medications and Allergies Home Medications Medication Instructions Recorded Confirmed Type famotidine 20 mg PO HS #0 09/15/17 12/28/20 History doxazosin 2 mg tablet 2 mg PO BEDTIME tab 11/28/18 12/28/20 History zolpidem 10 mg tablet 10 mg PO ONCE #20 tab 07/02/19 10/02/20 Rx diltiazem HCl 120 mg 120 mg PO DAILY cap 10/03/19 12/28/20 History capsule,extended release 12 hr ibuprofen 200 mg tablet 200 mg PO DAILY PRN tab 10/03/19 12/28/20 History lidocaine HCl 2 % mucosal jelly 1 applictn TOPICAL TID PRN #30 ml 10/03/19 12/28/20 Rx hydrocodone 5 mg-acetaminophen 325 1 tab PO Q6HP PRN #20 tab 04/10/20 12/28/20 Rx mg tablet calcium carbonate 500 mg calcium 500 mg PO DAILY 07/21/20 12/28/20 History (1,250 mg) tablet cholecalciferol (vitamin D3) 10 10 mcg PO DAILY 07/21/20 12/28/20 History mcg (400 unit) capsule loratadine 10 mg capsule 10 mg PO DAILY 07/21/20 12/28/20 History lycopene 10 mg capsule 10 mg PO DAILY 07/21/20 12/28/20 History magnesium oxide 169 mg PO DAILY 07/21/20 12/28/20 History omega-3 fatty acids 1,000 mg PO DAILY 07/21/20 12/28/20 History propylene glycol 0.6 % eye drops 1 drp EYE-BOTH DAILY 07/21/20 12/28/20 History saw palmetto-pumpkin seed oil 160 1 cap PO DAILY 07/21/20 12/28/20 History mg capsule vit 1 cap PO DAILY 07/21/20 12/28/20 History C,E,zinc,Ks-aszku-1-lutein-zeaxanthin 250 mg-2.5 mg-0.5 mg capsule vitamin E (dl, acetate) 400 unit 400 unit PO DAILY 07/21/20 12/28/20 History capsule clonazepam 2 mg tablet 2 mg PO DAILY #90 tab 12/07/20 12/28/20 Rx Allergies Allergy/AdvReac Type Severity Reaction Status Date / Time Sulfa (Sulfonamide Allergy Severe UNKNOWN, Verified 12/28/20 10:18 Antibiotics) JUST A WARNING POTENTIALLY LIFE THREATENING doxycycline [DOXYCYCLINE] Allergy Mild ITCHY Verified 12/28/20 09:22 THROAT/ TONGUE OYSTER AdvReac Mild GI Uncoded 10/02/20 10:06 INTOLERENCE Review of Systems Review of Systems ROS: Yes All systems reviewed with the patient and are negative except as otherwise documented Exam Vital Signs (past 8 hours): - 12/28/20 09:39 Temperature 97.7 F Pulse Rate 68 Respiratory Rate 12 Blood Pressure 114/66 Pulse Oximetry 100 Oxygen Delivery Method Room Air Narrative Exam Narrative: GENERAL-well developed elderly male, no acute distress HEENT-no scleral icterus, hearing intact NECK-no JVD, trachea midline CVS- regular rate, no peripheral edema RESP-unlabored respiratory effort, no audible wheezing GI-soft, nontender nondistended MSK-no cyanosis or clubbing, extremities without deformity SKIN-warm, dry NEURO-alert and oriented, no focal deficits PYSCH-Appropriate mood and affect Assessment & Plan Assessment & Plan narrative: The patient requires colorectal screening and colonoscopy is recommended. Technical details were discussed. Risks, benefits, alternatives explained. Risks including but not limited to myocardial infarction, aspiration, bleeding, pain, missed lesion, incomplete examination, need for further radiographic studies, colonic perforation, and need for major abdominal surgery were discussed. All questions were answered to their satisfaction, and they are in agreement with this plan.
[2020-12-28] MEDS: MIDAZOLAM 5 MG/5 ML VIAL IV (10:31)
[2020-12-28] MEDS: fentaNYL 250 MCG/5 ML INJ IV (10:40)
--- NOTE | 2020-12-28 10:47 | PM.OP.ENDO ---
Operative Date/Time/Diagnoses Date of procedure: 12/28/20 Time of procedure: 10:48 Pre-op diagnosis: Family history of colon cancer Post-op diagnosis: same Procedure & Clinicians Study performed: Colonoscopy Same procedure as scheduled: Yes Indications: First-degree relative with colon cancer Surgeon: Gabo Cantu Procedure Notes Procedure in detail: Medications: Conscious sedation using 5 mg IV midazolam and 200 mcg IV of fentanyl The history and physical was performed/updated and the patient is ASA class is 2. The procedure was discussed in detail with the patient. Potential risks complications including infection, bleeding, missed diagnosis, perforation, need for surgery, and were explained. Their questions were answered and informed consent was obtained. Patient was brought to the procedure room and placed standard monitoring equipment. The patient's vital signs were monitored continuously throughout the entire procedure. Prior to starting time-out was performed. The patient was placed in the left lateral recumbent position. Procedural sedation was administered. Examination began with a thorough inspection of the perianal area there was no evidence of fissures, fistulae, external hemorrhoids or cutaneous malignancy. The colonoscopy scope was then placed into the anal canal and was advanced to the cecum, which was identified by the ileocecal valve, the appendiceal orifice and the confluence of the taenia. The scope was then slowly withdrawn examining colon thoroughly in all directions, irrigating it of any residual stool. 1. No masses or polyps 2. Sigmoid diverticulosis 3. Grade 1 internal hemorrhoid The patient tolerated the procedure well. They will be discharged once criteria are met. The prep was of good/excellent quality. The withdrawl time was 6minutes. The sedation time was 21 minutes. Complications: none Impression: Normal colonoscopy Post-procedure Recommendations: Colonscopy in 5 years Disposition: same day surgery
[2020-12-28 10:50] VITALS: BP 119/66; PULSE 66; RESP 12; TEMP 36.6; O2SAT 98
[2020-12-28 10:55] VITALS: BP 119/86; PULSE 68; RESP 12; O2SAT 98
[2020-12-28 11:00] VITALS: BP 118/64; PULSE 67; RESP 13; O2SAT 98
[2020-12-28 11:05] VITALS: BP 123/61; PULSE 91; RESP 13; O2SAT 98
[2020-12-28 11:12] VITALS: BP 117/89; PULSE 78; RESP 15; TEMP 36.2; O2SAT 98
== END 2020-12-28 11:25 | disposition home or self-care (01) ==
PROVIDERS: PCP Internal Medicine; Referring Provider Surgery; Visit Provider Surgery
PROC: 0DJD8ZZ Inspection of Lower Intestinal Tract, Via Natural or Artificial Opening Endoscopic (ICD-10-PCS; CPT 45378; principal; 2020-12-28 10:00)
DX: Z12.11 Encounter for screening for malignant neoplasm of colon (principal); Z80.0 Family history of malignant neoplasm of digestive organs; K64.0 First degree hemorrhoids; K57.30 Diverticulosis of large intestine without perforation or abscess without bleeding
CPT/HCPCS: G0105; 99152; J2250; J3010

== ENCOUNTER → 2021-08-03 09:25 | Outpatient (CLI) | payer MEDICARE, SELFPAY ==
[2021-08-03 11:30] LABS: Prostate Specific Antigen 2.41 ng/mL (0.10-4.00)
== END ==
PROVIDERS: PCP Internal Medicine; Referring Provider Specialist; Visit Provider Specialist
DX: R97.20 Elevated prostate specific antigen [PSA] (principal)
CPT/HCPCS: 36415; 84153

== ENCOUNTER → 2021-09-29 08:16 | Outpatient (CLI) | payer MEDICARE, SELFPAY ==
[2021-09-29 10:22] LABS: Alanine Aminotransferase 20 IU/L (<50); Albumin 4.2 g/dL (3.5-5.0); Albumin Globulin Ratio 1.6 (1.0-2.8); Alkaline Phosphatase 47 U/L (38-126); Aspartate Aminotransferase 27 IU/L (17-59); BUN Creatinine Ratio 18.7 (6-22); Bilirubin Total 0.9 mg/dL (0.2-1.3); Blood Urea Nitrogen 14 mg/dL (9-20); Calcium 9.3 mg/dL (8.4-10.2); Carbon Dioxide 35 mmol/L (22-32); Chloride 103 mmol/L (98-107); Cholesterol 178 mg/dL (140-199); Estimated Glomerular Filt Rate > 60.0 mL/min (>60); Globulin 2.6 g/dL (1.7-4.1); Glucose 95 mg/dL (80-110); HDL Cholesterol 106 mg/dL (40-60); HEMOLYSIS < 15 (0-50); LDL Cholesterol Calculated 63 mg/dL (<100); Potassium 4.3 mmol/L (3.4-5.1); Sodium 137 mmol/L (137-145); Total Protein 6.8 g/dL (6.3-8.2); Triglycerides 46 mg/dL (35-150)
[2021-09-29 10:52] LABS: TSH w/ Reflex to FT4 3.03 uIU/mL (0.47-4.68)
== END ==
PROVIDERS: PCP Internal Medicine; Referring Provider Internal Medicine; Visit Provider Internal Medicine
DX: G43.009 Migraine without aura, not intractable, without status migrainosus (principal); Z13.6 Encounter for screening for cardiovascular disorders; E04.1 Nontoxic single thyroid nodule; E83.42 Hypomagnesemia
CPT/HCPCS: 36415; 80053; 80061; 83735; 84443

== ENCOUNTER → 2021-12-14 14:48 | Outpatient (CLI) | payer MEDICARE, SELFPAY ==
--- NOTE | 2021-12-14 14:50 | DI.RAD.S_ITS ---
PROCEDURE: XR LUMBAR SPINE 2-3V INDICATIONS: Fall, residual sciatica bilateral TECHNIQUE: 2 views of the lumbar spine were acquired. COMPARISON: None. FINDINGS: Bones: 5 vhw-yig-bolumgd vertebrae are present. There is very mild levo scoliosis of lumbar spine centered at L3 level. Straightening of normal lumbar lordosis is seen. Degenerative endplate changes are seen at L4-5 and L5-S1 levels. No vertebral body compression fractures. No suspicious bony lesions. Soft tissues: Overlying bowel gas pattern is normal. No suspicious soft tissue calcifications. IMPRESSION: No acute compression fracture or spondylolisthesis. Mild degenerative disc disease in lower lumbar spine as above. Dictated by: John Martin M.D. on 12/14/2021 at 16:13 Approved by: John Martin M.D. on 12/14/2021 at 16:14
--- NOTE | 2021-12-14 14:50 | DI.RAD.S_ITS ---
PROCEDURE: XR SACRUM COCCYX MIN 2V INDICATIONS: Fall, residual sciatica bilateral TECHNIQUE: 3 views of the sacrum and coccyx acquired. COMPARISON: None. FINDINGS: Bones: No fractures or dislocations. No suspicious bony lesions. Osteoarthritic changes are noted in bilateral hip joints. No evidence of avascular necrosis of femoral head. No bony erosion or ankylosis is seen in bilateral sacroiliac joints. Soft tissues: Visualized bowel gas pattern is normal. No suspicious soft tissue densities. IMPRESSION: No sacral or coccygeal fracture. Bilateral hip joint osteoarthritis. No fracture or dislocation. No evidence of avascular necrosis. Normal appearing bilateral sacroiliac joints. Dictated by: John Martin M.D. on 12/14/2021 at 16:12 Approved by: John Martin M.D. on 12/14/2021 at 16:13
== END ==
PROVIDERS: PCP Internal Medicine; Referring Provider Student in an Organized Health Care Education/Training Program; Visit Provider Student in an Organized Health Care Education/Training Program
DX: M54.32 Sciatica, left side (principal); M54.31 Sciatica, right side; W18.30XA Fall on same level, unspecified, initial encounter; M16.0 Bilateral primary osteoarthritis of hip; M51.36 Other intervertebral disc degeneration, lumbar region
CPT/HCPCS: 72100; 72220

== ENCOUNTER → 2022-09-29 09:25 | Outpatient (CLI) | payer MEDICARE, SELFPAY ==
[2022-09-29 10:14] LABS: Add Manual Diff / Slide Review NO; Basophils Absolute Auto 0 /uL (0-100); Basophils Percent Auto 0.8 % (0-2); Eosinophils Absolute Auto 200 /uL (0-450); Eosinophils Percent Auto 3.5 % (2-4); Hematocrit 40.3 % (41-53); Hemoglobin 13.4 g/dL (13.5-17.5); Lymphocytes Absolute Auto 1500 /uL (1100-4500); Mean Corpuscular HGB Conc 33.3 % (30-36); Mean Corpuscular Hemoglobin 34.8 PG (26-34); Mean Corpuscular Volume 104.6 fL (80-100); Monocytes Absolute Auto 400 /uL (0-900); Monocytes Percent Auto 8.2 % (3-14); Neutrophils Absolute Auto 3100 /uL (1500-7000); Neutrophils Percent Auto 59.5 % (50-75); Platelet Count 337 X10^3/uL (150-400); Red Blood Cell Count 3.85 X10^6/uL (4.5-5.9); Red Cell Distribution Width 13.3 % (11.6-14.8); White Blood Cell Count 5.2 X10^3/uL (4.5-11.0)
== END ==
PROVIDERS: Family Provider Internal Medicine; PCP Internal Medicine; Referring Provider Internal Medicine; Visit Provider Internal Medicine
DX: D75.89 Other specified diseases of blood and blood-forming organs (principal)
CPT/HCPCS: 36415; 85025

== ENCOUNTER → 2022-10-06 16:07 | Outpatient (CLI) | payer MEDICARE, SELFPAY ==
[2022-10-06 17:22] LABS: Alanine Aminotransferase 16 IU/L (<50); Albumin 4.2 g/dL (3.5-5.0); Albumin Globulin Ratio 1.2 (1.0-2.8); Alkaline Phosphatase 94 U/L (38-126); Aspartate Aminotransferase 22 IU/L (17-59); BUN Creatinine Ratio 19.7 (6-22); Bilirubin Total 0.7 mg/dL (0.2-1.3); Blood Urea Nitrogen 15 mg/dL (9-20); Carbon Dioxide 30 mmol/L (22-32); Chloride 99 mmol/L (98-107); Estimated Glomerular Filt Rate > 60 mL/min (>60); Globulin 3.4 g/dL (1.7-4.1); Glucose 92 mg/dL (80-110); HEMOLYSIS < 15 (0-50); Potassium 3.9 mmol/L (3.4-5.1); Sodium 136 mmol/L (137-145); Total Protein 7.6 g/dL (6.3-8.2)
[2022-10-06 18:07] LABS: Free T4, Direct Thyroxine 1.05 ng/dL (0.78-2.19)
[2022-10-06 18:21] LABS: Thyroid Stimulating Hormone 2.12 uIU/mL (0.47-4.68)
== END ==
PROVIDERS: Family Provider Internal Medicine; PCP Internal Medicine; Referring Provider Internal Medicine; Visit Provider Internal Medicine
DX: E04.1 Nontoxic single thyroid nodule (principal); N13.8 Other obstructive and reflux uropathy; N40.1 Benign prostatic hyperplasia with lower urinary tract symptoms; Z79.899 Other long term (current) drug therapy
CPT/HCPCS: 36415; 80053; 84439; 84443

== ENCOUNTER → 2022-10-19 10:05 | Outpatient (CLI) | payer MEDICARE, SELFPAY ==
--- NOTE | 2022-10-19 | DI.US.S_ITS ---
PROCEDURE: US THYROID INDICATIONS: Nontoxic multinodular goiter TECHNIQUE: Real-time scanning was performed of the thyroid gland, with image documentation. COMPARISON: [facility], US, US THYROID, 09/06/2018, 10:45. FINDINGS: Right: Thyroid lobe measures 5.2 x 1.7 x 2.3 cm, and is homogeneous in echotexture. Left: Thyroid lobe measures 5.7 x 1.6 x 1.7 cm, and is homogenous in echotexture. Isthmus: 3.6 mm thick. Nodule number: 1 Location: Right superior Size: 0.7 x 0.7 x 0.7 cm. Composition: Solid Echogenicity: Hypoechoic Shape: wider than tall. Margins: Smooth Echogenic foci: None Total points: 4 ACR TI-RADS category: 4 Nodule number: 2 Location: Right mid Size: 2.1 x 1.1 x 1.9 cm Composition: Solid Echogenicity: Isoechoic Shape: wider than tall. Margins: Ill-defined Echogenic foci: Macro calcifications Total points: 4 ACR TI-RADS category: 4 Nodule number: 3 Location: Right inferior Size: 2.8 x 2.9 x 1.9 cm. Composition: Cystic Echogenicity: Anechoic Shape: wider than tall. Margins: Irregular Echogenic foci: None Total points: 2 ACR TI-RADS category: 1 Nodule number: 4 Location: Left superior Size: 1.2 x 0.5 x 0.8 cm. Composition: Predominantly solid Echogenicity: Hypoechoic Shape: wider than tall. Margins: Smooth Echogenic foci: None Total points: 4 ACR TI-RADS category: 4 Nodule number: 5 Location: Left inferior Size: 1.1 x 0.5 x 0.8 cm. Composition: Solid Echogenicity: Hypoechoic Shape: wider than tall. Margins: Smooth Echogenic foci: None Total points: 4 ACR TI-RADS category: 4 IMPRESSION: Stable bilateral thyroid nodules. Best practice guidelines recommend FNA of nodule 2 if not previously biopsied. ACR TI-RADS definitions and recommendations: TI-RADS 1 (benign): 0 points. FNA not needed. TI-RADS 2 (not suspicious): 2 points. FNA not needed. TI-RADS 3 (mildly suspicious): 3 points. * FNA if 2.5 cm or larger, follow up if 1.5 cm or larger (at 1, 3, and 5 years). TI-RADS 4 (moderately suspicious): 4-6 points. * FNA if 1.5 cm or larger, follow up if 1 cm or larger (at 1, 2, 3, and 5 years). TI-RADS 5 (highly suspicious): 7 points or more. * FNA if 1 cm or larger, follow up if 0.5 cm or larger (every year for 5 years). Approved by: Adam Nunez M.D. on 10/19/2022 at 14:30
== END ==
PROVIDERS: Family Provider Internal Medicine; PCP Internal Medicine; Referring Provider Internal Medicine Endocrinology, Diabetes & Metabolism; Visit Provider Internal Medicine Endocrinology, Diabetes & Metabolism
DX: E04.2 Nontoxic multinodular goiter (principal)
CPT/HCPCS: 76536

== ENCOUNTER → 2022-12-09 08:00 | Outpatient (CLI) | payer MEDICARE, SELFPAY ==
--- NOTE | 2022-12-09 08:02 | DI.RAD.S_ITS ---
PROCEDURE: XR RIBS RT MIN 3V W CXR 1V INDICATIONS: Rib injury TECHNIQUE: 2 views of the right ribs were acquired, along with a single view chest. COMPARISON: None. FINDINGS: Surgical changes and devices: None. Bones and chest wall: Right lateral 9th rib fracture. No significant displacement. No suspicious bony lesions. Prior left clavicle fracture. Overlying soft tissues appear unremarkable. Lungs and pleura: No pneumothorax. Trace right pleural effusion or hemothorax. Lungs appear clear. Mediastinum: Mediastinal contours appear normal. Heart size is normal. IMPRESSION: Nondisplaced right lateral 9th rib fracture. No pneumothorax. Trace right pleural effusion or hemothorax. Dictated by: Mika Duran M.D. on 12/09/2022 at 9:37 Approved by: Mika Duran M.D. on 12/09/2022 at 9:39
== END ==
PROVIDERS: Family Provider Internal Medicine; PCP Internal Medicine; Referring Provider Nurse Practitioner Family; Visit Provider Nurse Practitioner Family
DX: S22.31XA Fracture of one rib, right side, initial encounter for closed fracture (principal)
CPT/HCPCS: 71101

== ENCOUNTER 2022-12-09 16:53 | Emergency (ER) | payer MEDICARE, SELFPAY ==
[2022-12-09 17:21] VITALS: BP 163/77; PULSE 68; RESP 15; TEMP 36.5; O2SAT 98; BMI 22.2
--- NOTE | 2022-12-09 17:29 | DI.CT.S_ITS ---
PROCEDURE: CT CHEST W CON INDICATIONS: fall, fx ribs TECHNIQUE: After the administration of intravenous contrast, 5 mm thick sections acquired from the pulmonary apices to the posterior costophrenic angles. 1 mm axial lung, 5 mm thick coronal and sagittal reformats and 7 mm axial MIP were acquired. For radiation dose reduction, the following was used: automated exposure control, adjustment of mA and/or kV according to patient size. COMPARISON: [facility], US, US THYROID, 10/19/2022, 10:14. [facility], CR, XR RIBS RT MIN 3V W CXR 1V, 12/09/2022, 7:59. FINDINGS: Image quality: Excellent. Lungs and pleura: No acute air space opacities. No pleural effusions or pneumothorax. Central and peripheral airways are patent and normal in caliber. Mediastinum: Heart size is normal. No pericardial effusion. Hypodense measuring 2.8 x 1.5 cm is present along the right trachea medial to the carotid and subclavian vasculature seen on series 2, image 113. Hounsfield units measure 16. Thoracic aorta and central pulmonary arteries are normal in size. Esophagus is normal in caliber. No hiatal hernia. Bones and chest wall: Nondisplaced right lateral rib fracture. No vertebral body compression fractures. No axillary or supraclavicular adenopathy by size criteria. Thyroid gland demonstrates low-attenuation calcification within the right lobe. . Abdomen: Partially visualized simple renal cysts. Otherwise, visualized upper abdominal solid organs appear normal. Upper abdominal bowel loops are normal in caliber. IMPRESSION: Nondisplaced right lateral 9th rib fracture. Right paratracheal hypodensity as above. No priors are available for comparison. Hounsfield units are suggestive of fluid attenuation and potentially cystic structure of uncertain etiology, which can include bronchogenic, esophageal duplication cysts, lymphangioma. It appears too lateral in location to represent thymic cyst. Further evaluation nonemergent basis may be obtained with MRI. Dictated by: Mrery Hickman M.D. on 12/09/2022 at 18:59 Approved by: Merry Hickman M.D. on 12/09/2022 at 19:19
[2022-12-09 18:11] LABS: Add Manual Diff / Slide Review NO; Basophils Absolute Auto 0 /uL (0-100); Basophils Percent Auto 0.8 % (0-2); Eosinophils Absolute Auto 100 /uL (0-450); Eosinophils Percent Auto 1.8 % (2-4); Hematocrit 37.2 % (41-53); Hemoglobin 12.8 g/dL (13.5-17.5); Lymphocytes Absolute Auto 1900 /uL (1100-4500); Lymphocytes Percent Auto 37.6 % (25-40); Mean Corpuscular HGB Conc 34.4 % (30-36); Mean Corpuscular Hemoglobin 35.4 PG (26-34); Mean Corpuscular Volume 102.9 fL (80-100); Monocytes Absolute Auto 400 /uL (0-900); Monocytes Percent Auto 8.5 % (3-14); Neutrophils Absolute Auto 2500 /uL (1500-7000); Neutrophils Percent Auto 51.3 % (50-75); Platelet Count 233 X10^3/uL (150-400); Red Blood Cell Count 3.62 X10^6/uL (4.5-5.9); Red Cell Distribution Width 13.6 % (11.6-14.8); White Blood Cell Count 4.9 X10^3/uL (4.5-11.0)
[2022-12-09 18:16] LABS: INR 0.9 (0.9-1.3); Prothrombin Time 10.8 SECONDS (10.1-12.7)
[2022-12-09 18:18] LABS: PTT Partial Thromboplastin Tim 31 SECONDS (26-36)
[2022-12-09 18:21] LABS: Alanine Aminotransferase 28 IU/L (<50); Albumin 4.4 g/dL (3.5-5.0); Albumin Globulin Ratio 1.6 (1.0-2.8); Alkaline Phosphatase 55 U/L (38-126); Aspartate Aminotransferase 33 IU/L (17-59); BUN Creatinine Ratio 15.1 (6-22); Blood Urea Nitrogen 11 mg/dL (9-20); Calcium 8.9 mg/dL (8.4-10.2); Carbon Dioxide 28 mmol/L (22-32); Chloride 100 mmol/L (98-107); Estimated Glomerular Filt Rate > 60 mL/min (>60); Globulin 2.8 g/dL (1.7-4.1); Glucose 87 mg/dL (80-110); HEMOLYSIS < 15 (0-50); Lipase 97 U/L (23-300); Potassium 3.9 mmol/L (3.4-5.1); Sodium 135 mmol/L (137-145); Total Protein 7.2 g/dL (6.3-8.2)
--- NOTE | 2022-12-09 20:53 | ED_ITS ---
HPI - Recheck/Abnormal Lab/Rx General Chief Complaint: Recheck/Abnormal Lab/Rx Stated Complaint: Sent for advanced imaging Time Seen by Provider: 12/09/22 20:25 History of Present Illness HPI narrative: Patient is a 72-year-old male without past medical history presenting today after a fall yesterday. 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 He went to a walk-in clinic today x-ray showed a nondisplaced right lateral 9th rib fracture without pneumothorax. He was then sent here from the walk-in clinic for further imaging. Denies any he is had no nausea vomiting or numbness tingling or weakness. He says it hurts when he breathes and moves and coughs. Related Data Home Medications Medication Instructions Recorded Confirmed famotidine 20 mg tablet 20 mg PO HS ##0 09/15/17 10/06/22 diltiazem HCl 120 mg 120 mg PO DAILY 10/03/19 10/06/22 capsule,extended release 12 hr ibuprofen 200 mg tablet 200 mg PO DAILY PRN Pain (Scale 10/03/19 10/06/22 Score 1-3) calcium carbonate 500 mg calcium 500 mg PO DAILY 07/21/20 10/06/22 (1,250 mg) tablet (Calcium 500) cholecalciferol (vitamin D3) 10 10 mcg PO DAILY 07/21/20 10/06/22 mcg (400 unit) capsule loratadine 10 mg capsule 10 mg PO DAILY 07/21/20 10/06/22 lycopene 10 mg capsule 10 mg PO DAILY 07/21/20 10/06/22 magnesium oxide 169 mg PO DAILY 07/21/20 10/06/22 propylene glycol 0.6 % eye drops 1 drp EYE-BOTH DAILY 07/21/20 10/06/22 (Systane Balance) saw palmetto-pumpkin seed oil 160 1 cap PO DAILY 07/21/20 10/06/22 mg capsule vit 1 cap PO DAILY 07/21/20 10/06/22 C,E,zinc,Ib-qaftx-7-lutein-zeaxanthin 250 mg-2.5 mg-0.5 mg capsule vitamin E (dl, acetate) 180 mg 400 unit PO DAILY 07/21/20 10/06/22 (400 unit) capsule Previous Rx's Medication Instructions Recorded sildenafil (pulm.hypertension) 20 20 mg PO DAILY PRN sexual activity 08/31/21 mg tablet #30 tabs clonazepam 2 mg tablet 2 mg PO DAILY #90 tabs 05/30/22 alfuzosin 10 mg tablet,extended 10 mg PO DAILY #90 tabs 08/10/22 release 24 hr hydrocodone 5 mg-acetaminophen 325 1 tab PO Q6HP PRN headache #20 tabs 10/06/22 mg tablet hydrocodone 5 mg-acetaminophen 325 1 tab PO Q6H PRN pain #10 tabs 12/09/22 mg tablet Allergies Allergy/AdvReac Type Severity Reaction Status Date / Time Sulfa (Sulfonamide Allergy Severe UNKNOWN, Verified 10/06/22 15:36 Antibiotics) JUST A WARNING POTENTIALLY LIFE THREATENING doxycycline [DOXYCYCLINE] Allergy Mild ITCHY Verified 10/06/22 15:36 THROAT/ TONGUE OYSTER AdvReac Mild GI Uncoded 10/06/22 15:36 INTOLERENCE Review of Systems Review of Systems ROS Unobtainable: All systems reviewed & are unremarkable except as noted in HPI and below Patient History Medical History Actinic keratosis of scalp (02/17/14) Anxiety (02/17/14) BPH w urinary obs/LUTS Central serous retinopathy (~1993) Daily headache (02/17/14) Diverticular disease (~1993) Erectile dysfunction Family history of prostate cancer Fractures (~1973) Hemorrhoid (~2003) Insomnia (~2010) Internal hemorrhoids (10/28/14) Irritable bowel syndrome Macrocytosis (~2012) Migraines (~2010) Nonallopathic lesion of cervical region (10/28/14) Peyronie disease Postconcussion syndrome (02/17/14) Reflux (06/09/14) Seborrheic keratosis (02/17/14) Thyroid nodule (~2012) Tinnitus Tubular adenoma of colon (10/28/14) Vertigo Vertigo (~2010) Surgical History Inguinal hernia (~2013) S/P rotator cuff repair (~07/2022) Status post colonoscopy (~2014) Status post hernia repair (~1964) Family History Brother Age: 75 Prostate cancer Father Parkinson disease Colon cancer Cancer Grandfather CAD (coronary artery disease) Diabetes mellitus Grandmother CAD (coronary artery disease) Diabetes mellitus Mother Age: 97 Hypertension Osteoarthritis GERD (gastroesophageal reflux disease) Overweight Hearing impaired UTI (urinary tract infection) Grandmother History of blood clots Social History marital status: number of children: 0 household members: spouse lives independently: Yes caregiver/support person: No housing: house pets and animals: Yes education level: other occupational status: other 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 travel history: recent leisure activities: exercise, fishing and other Smoking Status: Former smoker Tobacco: How many years used: 7 Smokeless tobacco user: other quit status: quit date established second hand exposure: No alcohol intake: current substance use type: does not use caffeine: No Smoking Status: Former smoker alcohol intake frequency: 0-2 drinks per day Substance Use Type: does not use Exam Initial Vital Signs Initial Vital Signs: Vital Signs Temperature 97.7 F 12/09/22 17:21 Pulse Rate 68 12/09/22 17:21 Respiratory Rate 15 12/09/22 17:21 Blood Pressure 163/77 H 12/09/22 17:21 Pulse Oximetry 98 12/09/22 17:21 Oxygen Delivery Method Room Air 12/09/22 17:21 GENERAL: Alert well-appearing 72-year-old male HEENT: Head atraumatic,EOMI, pupils reactive, face symmetric, moist mucous membranes CARDIOVASCULAR: Regular rate and rhythm without murmurs, rubs or gallops. RESPIRATORY: Breath sounds equal bilaterally, no wheezes rales or rhonchi. No paradoxical movement no contusion EXTREMITIES: Normal range of motion, no clubbing or edema. Neurovascularly intact NEUROLOGICAL: Alert and oriented x4. SKIN: Warm, dry, no laceration, no petechiae, no rashes or lesions. Course Orders Ordered: Discontinued Medications Hydrocodone Bitart/Acetaminophen (Hydrocodone/Acet 5/325 Prepack) 1 bottle MISC SEEINSTR ONE Stop: 12/09/22 21:10 Last Admin: 12/09/22 21:24 Dose: 1 bottle Documented By: GC Vital Signs Vital signs: Vital Signs - 8 hr 12/09/22 17:21 Temperature 97.7 F Pulse Rate 68 Respiratory Rate 15 Blood Pressure 163/77 H Pulse Oximetry 98 Oxygen Delivery Method Room Air MDM - Recheck/Abnormal Lab/Rx Lab Data 12/09/22 17:54 12/09/22 17:54 Labs: Lab Results 12/09/22 12/09/22 12/09/22 Range/Units 17:54 17:54 17:54 WBC 4.9 (4.5-11.0) X10^3/uL RBC 3.62 L (4.5-5.9) X10^6/uL Hgb 12.8 L (13.5-17.5) g/dL Hct 37.2 L (41-53) % MCV 102.9 H (80-100) fL MCH 35.4 H (26-34) PG MCHC 34.4 (30-36) % RDW 13.6 (11.6-14.8) % Plt Count 233 (150-400) X10^3/uL Neut % (Auto) 51.3 (50-75) % Lymph % (Auto) 37.6 (25-40) % [place] % (Auto) 8.5 (3-14) % Eos % (Auto) 1.8 L (2-4) % Baso % (Auto) 0.8 (0-2) % Neut # (Auto) 2500 (9903-6810) /uL Lymph # (Auto) 1900 (1794-1514) /uL [place] # (Auto) 400 (0-900) /uL Eos # (Auto) 100 (0-450) /uL Baso # (Auto) 0 (0-100) /uL PT 10.8 (10.1-12.7) SECONDS INR 0.9 (0.9-1.3) APTT 31 (26-36) SECONDS Sodium 135 L (137-145) mmol/L Potassium 3.9 (3.4-5.1) mmol/L Chloride 100 (98-107) mmol/L Carbon Dioxide 28 (22-32) mmol/L BUN 11 (9-20) mg/dL Creatinine 0.73 (0.66-1.25) mg/dL Estimated GFR > 60 (>60) mL/min BUN/Creatinine Ratio 15.1 (6-22) Glucose 87 (80-110) mg/dL Calcium 8.9 (8.4-10.2) mg/dL Total Bilirubin 1.0 (0.2-1.3) mg/dL AST 33 (17-59) IU/L ALT 28 (<50) IU/L Alkaline Phosphatase 55 (38-126) U/L Total Protein 7.2 (6.3-8.2) g/dL Albumin 4.4 (3.5-5.0) g/dL Globulin 2.8 (1.7-4.1) g/dL Albumin/Globulin Ratio 1.6 (1.0-2.8) Lipase 97 (23-300) U/L Imaging Data CT scan - chest: Radiologist's Impression: PROCEDURE:? XR RIBS RT MIN 3V W CXR 1V ? INDICATIONS:? Rib injury ? TECHNIQUE:? 2 views of the right ribs were acquired, along with a single view chest.? ? COMPARISON:? None. ? FINDINGS:? ? Surgical changes and devices:? None.? ? Bones and chest wall:? Right lateral 9th rib fracture.? No significant displacement.? No suspicious bony lesions.? Prior left clavicle fracture.? Overlying soft tissues appear unremarkable.? ? Lungs and pleura:? No pneumothorax.? Trace right pleural effusion or hemothorax.? Lungs appear clear.? ? Mediastinum:? Mediastinal contours appear normal.? Heart size is normal.? ? IMPRESSION:? Nondisplaced right lateral 9th rib fracture. ? No pneumothorax.? Trace right pleural effusion or hemothorax. ? ? Dictated by: Mika Duran M.D. on 12/09/2022 at 9:37 ? ? [facility] Narrative Medical decision making narrative: Patient is a healthy 72-year-old male presenting today after a mechanical fall yesterday. He was found by x-ray to have 1 nondisplaced 9th rib sent here for further imaging. He is not hypoxic he is not on any anticoagulation. CT confirms that he has 1 nondisplaced right 9th rib with trace pleural effusion/hemothorax. Hemodynamically stable. Not requiring pain medication in the ED. Discharge Plan Departure Patient Disposition: Home Clinical Impression: Fracture of rib Instructions: Rib Fracture Activity Restrictions/Additional Instructions: *You have been diagnosed with 9th rib fracture *What to do: Use incentive spirometer 5-10 times in an hour while awake. Splint with a pillow hand or blanket as needed. *Continue to take medications as directed [place] 1 tablet every 6 hours if needed for severe pain Tylenol 650 mg every 4-6 hours if needed for vtjg-lf-aellnrlu pain Motrin 600 mg every 6-8 hours only if needed *Follow up with your primary care provider in 2-3 days or call [phone] *Return to ER if you should have increasing pain shortness of breath fever cough or any new, worsening or concerning symptoms CONTROLLED SUBSTANCE DISCHARGE (Narcotoic/benzodiazepine/Flexeril/Phenergan) 1. You have been prescribed narcotic medications, it does have acetaminophen/Tylenol/paracetamol in it, DO NOT TAKE MORE THAN 4,00mg in 24 hours of Tylenol. TRAMADOL DOES NOT CONTAIN TYLENOL 2. Please understand that we cannot provide further refills of narcotics, benzodiazepines or controlled substances through the ED and her pain management will need to be through your provider. 3. While on these medications you cannot drive or operate heavy machinery. 4. You cannot sign legal documents or perform any duties such as this. 5. As long as you're taking opiate pain medications he should also be taking a stool softener such as Colace, Dulcolax, MiraLAX or prune juice, to help avoid constipation. Prescriptions: New hydrocodone-acetaminophen 5-325 mg tablet 1 tab PO Q6H PRN (Reason: pain) Qty: 10 0RF No Action famotidine 20 MG tablet 20 mg PO HS Qty: 0 saw palmetto-pumpkin seed oil 160 mg capsule 1 cap PO DAILY lycopene 10 mg capsule 10 mg PO DAILY Rx Instructions: administer after a meal vit C,E,Zn,Br--usc-zeax 250-2.5-0.5 mg capsule 1 cap PO DAILY Systane Balance 0.6 % drops 1 drp EYE-BOTH DAILY vitamin E (dl, acetate) 400 unit capsule 400 unit PO DAILY calcium carbonate [Calcium 500] 500 mg calcium (1,250 mg) tablet 500 mg PO DAILY magnesium oxide 84.5 mg mag (140 mg) capsule 169 mg PO DAILY cholecalciferol (vitamin D3) 10 mcg (400 unit) capsule 10 mcg PO DAILY loratadine 10 mg capsule 10 mg PO DAILY sildenafil (pulm.hypertension) 20 mg tablet 20 mg PO DAILY MDD 20mg per 24hr period PRN (Reason: sexual activity) Qty: 30 11RF clonazepam 2 mg tablet 2 mg PO DAILY Qty: 90 3RF alfuzosin 10 mg tablet extended release 24 hr 10 mg PO DAILY Qty: 90 0RF Rx Instructions: administer after the same meal each day No further refills without appointment. diltiazem HCl 120 mg capsule,extended release 12 hr 120 mg PO DAILY ibuprofen 200 mg tablet 200 mg PO DAILY PRN (Reason: Pain (Scale Score 1-3)) hydrocodone-acetaminophen 5-325 mg tablet 1 tab PO Q6HP PRN (Reason: headache) Qty: 20 0RF Referrals: Brenton Alonso MD [Primary Care Provider] - Stand Alone Forms: Patient Portal/API
[2022-12-09] MEDS: HYDROCODONE/ACET 5/325 PREPACK 1 BOTTLE MISC (21:24)
[2022-12-09 21:38] VITALS: BP 129/71; PULSE 58; RESP 16; TEMP 36.6; O2SAT 98
== END 2022-12-09 21:48 | disposition home or self-care (01) ==
PROVIDERS: Emergency Medicine; Emergency Provider Emergency Medicine; Family Provider Internal Medicine; PCP Internal Medicine
DX: S22.31XA Fracture of one rib, right side, initial encounter for closed fracture (principal); W18.30XA Fall on same level, unspecified, initial encounter; S29.9XXA Unspecified injury of thorax, initial encounter
CPT/HCPCS: 36415; 71101; 71260; 80053; 83690; 85025; 85610; 85730; 99284; Q9967

== ENCOUNTER → 2022-12-23 09:37 | Outpatient (CLI) | payer MEDICARE, SELFPAY ==
--- NOTE | 2022-12-23 09:39 | DI.RAD.S_ITS ---
PROCEDURE: XR WRIST LT MIN 3V INDICATIONS: left medial wrist pain TECHNIQUE: 4 views of the wrist were acquired. COMPARISON: None. FINDINGS: Bones: No fractures or dislocations. No suspicious bony lesions. Scaphoid view: Intact Soft tissues: No suspicious soft tissue calcifications. IMPRESSION: No evidence acute bony abnormality. If clinical suspicion and/or symptoms persist, further assessment with repeat plain films, or advanced imaging (e.g., CT, MRI, or bone scan) may be helpful for further assessment. Dictated by: Edgar Jasso M.D. on 12/23/2022 at 9:55 Approved by: Edgar Jasso M.D. on 12/23/2022 at 9:56
== END ==
PROVIDERS: Family Provider Internal Medicine; PCP Internal Medicine; Referring Provider Physician Assistant; Visit Provider Physician Assistant
DX: M25.532 Pain in left wrist (principal)
CPT/HCPCS: 73110

== ENCOUNTER → 2023-05-05 08:08 | Outpatient (CLI) | payer MEDICARE, SELFPAY ==
--- NOTE | 2023-05-05 | PATH_ITS ---
Note [facility] Accession Number: [id number] TESTS RESULT FLAG UNITS REF RANGE LAB Clinician Provided Cytology Information No. of containers..01 Other (Miscellaneous) No. of containers..02 Previously Prepared Cytology Slide Source: RIGHT MID THYROID NODULE #2 DIAGNOSIS: RIGHT MID THYROID NODULE #2 INCONCLUSIVE. [place] CATEGORY III. ATYPIA OF UNDETERMINED SIGNIFICANCE. THYROID MOLECULAR STUDIES REQUESTED; RESULTS WILL BE REPORTED SEPARATELY. Pathologist ICD10: R89.6 Signed out by: Lianna Damico MD, Pathologist NPI- [id number] Performed by: Daljit Noriega, [employer] ([facility]) Gross description: 30 CC, PINK, CLEAR RECIEVED: IN CYTOLYT WITH 6 ALCOHOL FIXED AND 6 QUICK STAINED SLIDES ALSO 1 RNA VIAL WILL ON 05-25-2023.VO /VDU 05/08/2023 0938 Local FLAG LEGEND: L-Low Normal,H-High Normal,LL-Alert Low,HH-Alert High <-Panic Low,>-Panic High,A-Abnormal,AA-Critical Abnormal Performed at: 01 =Z [facility] [address], [place] [address] Carlos Norris MD, Performed at: 01 [facility] [address], [place], [place] [id number] MD Carlos Norris MD Phone: [phone]
--- NOTE | 2023-05-05 | DI.US.S_ITS ---
PROCEDURE: US FINE NEEDLE ASPIRATION INDICATIONS: RIGHT MID NODULE #2 REPEAT ASPIRATION. ADD THYRAMIR/AFIRMA. TECHNIQUE: The indications, alternatives, benefits, risks, and complications of the procedure were explained to the patient. Written informed consent was obtained and placed in the chart. The thyroid region was examined sonographically and a site was chosen for ultrasound guided percutaneous sampling. The skin was prepared and draped in the usual fashion, and anesthetized with 1% lidocaine infiltrated from the skin down to the thyroid gland. Multiple passes were then performed, with contents emptied into an appropriate pathology specimen container. A bandage was applied to the area of access at completion of the study. COMPARISON: [facility], , US FINE NEEDLE ASPIRATION THYROID, 11/21/2022, 15:01. [facility], US, US FINE NEEDLE ASPIRATION, 10/04/2018, 10:03. FINDINGS: Location(s) of lesion(s) sampled: Right mid thyroid nodule 2 measuring 2.1 cm on ultrasound 10/19/2022. [place]: 25 gauge hypodermic needles x5 passes. 22 gauge hypodermic needles x 1 pass . Medications: 1% lidocaine for local anaesthesia. Complications: None. IMPRESSION: Successful ultrasound-guided right mid #2 thyroid nodule fine needle aspiration, with cytology results pending. Dictated by: Mika Duran M.D. on 05/05/2023 at 11:29 Approved by: Mika Duran M.D. on 05/05/2023 at 11:32
== END ==
PROVIDERS: Family Provider Internal Medicine; PCP Internal Medicine; Referring Provider Internal Medicine Endocrinology, Diabetes & Metabolism; Visit Provider Internal Medicine Endocrinology, Diabetes & Metabolism
DX: E04.2 Nontoxic multinodular goiter (principal)
CPT/HCPCS: 10005

== ENCOUNTER → 2023-07-06 16:24 | Outpatient (CLI) | payer MEDICARE, SELFPAY ==
[2023-07-06 17:27] LABS: Add Manual Diff / Slide Review NO; Basophils Absolute Auto 0 /uL (0-100); Basophils Percent Auto 0.4 % (0-2); Eosinophils Absolute Auto 100 /uL (0-450); Eosinophils Percent Auto 1.4 % (2-4); Hematocrit 39.9 % (41-53); Hemoglobin 13.7 g/dL (13.5-17.5); Lymphocytes Absolute Auto 1600 /uL (1100-4500); Lymphocytes Percent Auto 29.5 % (25-40); Mean Corpuscular HGB Conc 34.4 % (30-36); Mean Corpuscular Hemoglobin 36.3 PG (26-34); Mean Corpuscular Volume 105.5 fL (80-100); Monocytes Absolute Auto 400 /uL (0-900); Monocytes Percent Auto 7.4 % (3-14); Neutrophils Absolute Auto 3300 /uL (1500-7000); Neutrophils Percent Auto 61.3 % (50-75); Platelet Count 252 X10^3/uL (150-400); Red Blood Cell Count 3.78 X10^6/uL (4.5-5.9); Red Cell Distribution Width 12.7 % (11.6-14.8); White Blood Cell Count 5.4 X10^3/uL (4.5-11.0)
[2023-07-06 17:53] LABS: Erythrocyte Sedimentation Rate 3 MM/HR (0-15)
[2023-07-06 18:58] LABS: TSH w/ Reflex to FT4 2.58 uIU/mL (0.47-4.68)
[2023-07-06 19:49] LABS: Alanine Aminotransferase 20 IU/L (<50); Albumin 4.3 g/dL (3.5-5.0); Albumin Globulin Ratio 1.4 (1.0-2.8); Alkaline Phosphatase 54 U/L (38-126); Aspartate Aminotransferase 28 IU/L (17-59); BUN Creatinine Ratio 22.9 (6-22); Bilirubin Total 0.9 mg/dL (0.2-1.3); Blood Urea Nitrogen 22 mg/dL (9-20); Calcium 9.3 mg/dL (8.4-10.2); Carbon Dioxide 30 mmol/L (22-32); Chloride 98 mmol/L (98-107); Estimated Glomerular Filt Rate > 60 mL/min (>60); Globulin 3.1 g/dL (1.7-4.1); Glucose 105 mg/dL (80-110); HEMOLYSIS < 15 (0-50); Sodium 136 mmol/L (137-145); Total Protein 7.4 g/dL (6.3-8.2)
[2023-07-07 20:11] LABS: C-Reactive Protein Quant < 0.5 mg/dL (<1.0); Vitamin B12 360 pg/mL (239-931)
== END ==
PROVIDERS: Family Provider Internal Medicine; PCP Internal Medicine; Referring Provider Internal Medicine; Visit Provider Internal Medicine
DX: R42 Dizziness and giddiness (principal)
CPT/HCPCS: 36415; 80053; 82607; 84443; 85025; 85651; 86140

== ENCOUNTER → 2023-08-15 07:59 | Outpatient (CLI) | payer MEDICARE, SELFPAY ==
--- NOTE | 2023-08-15 08:00 | DI.ECHO.S_ITS ---
[facility]---------+ [facility] +---------+ : : [address] : : : : [id number] : : : : Phone: [phone] Echocardiogram Report + + :Name: AURE CAMPOS Study Date: 08/15/2023 Height: 67 in : :[facility] ReadingLocation: Weight: 145 lb : : Gender: Male BSA: 1.8 m2 : :: 1950 Age: 73 yrs BP: 118/72 mmHg: :Reason For Study: SYNCOPE : :Ordering Physician: CAITIE, : :BARBY Fam Performed By: Libby He : :Referring: BARBY BLOOD : + + Interpretation Summary The ejection fraction is estimated to be 50-55%. The right ventricle is normal in size and function. There is mild mitral regurgitation. There is mild aortic regurgitation. Procedure: A two-dimensional transthoracic echocardiogram with color flow and Doppler was performed. The study quality was technically adequate. There is no prior echocardiogram noted for this patient. The patient was in sinus rhythm with heart rates between 53-64 bpm during the exam. Left Ventricle: The left ventricle is normal in size and wall thickness. The ejection fraction is estimated to be 50-55%. Left ventricular wall motion is normal. Right Ventricle: The right ventricle is normal in size and function. Atria: The left atrium is mildly dilated. Right atrial size is normal. There is no Doppler evidence for an interatrial shunt. Mitral Valve: The mitral valve is normal in structure and function. There is mild mitral regurgitation. Aortic Valve: The aortic valve is trileaflet. The aortic valve opens well. There is no aortic valve stenosis. There is mild aortic regurgitation. Tricuspid Valve: The tricuspid valve is normal in structure and function. There is mild tricuspid regurgitation. Pulmonary artery pressures cannot be estimated because of the lack of a measurable TR jet velocity. Pulmonic Valve: The pulmonic valve leaflets are thin and pliable; valve motion is normal. There is mild pulmonic regurgitation. Great Vessels: The aortic root is normal size. The dimensions of the ascending aorta are normal. The IVC is of normal diameter and collapses greater than 50% with a sniff. This suggests a low right atrial pressure of 3 mm Hg. Pericardium/ Pleura There is no pericardial effusion. There is no pleural effusion. MMode/2D Measurements & Calculations LVIDd: 5.3 cm LVOT diam: 2.0 cm LVIDs: 3.5 cm Ao root diam: 3.1 cm FS: 34.7 % asc Aorta Diam: 3.3 cm EPSS: 0.69 cm IVSd: 0.85 cm LVPWd: 0.84 cm LV ceron. diameter/BSA (cm/m^2): 3.0 LV sys. diameter/BSA (cm/m^2): 2.0 LA A2 area: 19.4 cm2 RA long axis: 4.5 cm LA A4 area: 17.8 cm2 RA area: 14.7 cm2 LA length (vol): 4.8 cm RA vol: 40.5 ml LA vol: 61.1 ml RA : 23.0 ml/m2 LA vol index: 34.7 ml/m2 IVC diam: 0.99 cm RVD1 (basal): 3.8 cm RVD2 (mid): 2.9 cm TAPSE: 2.6 cm Doppler Measurements & Calculations LVOT Max Jerad: 90.1 cm/sec MV E max jerad: 61.1 cm/sec LV V1 max P.2 mmHg MV A max jerad: 43.8 cm/sec LV V1 VTI: 18.9 cm MV E/A: 1.4 AI P1/2t: 601.2 msec Med Peak E' Jerad: 8.6 cm/sec AI dec slope: 188.2 cm/sec2 E/E' med: 7.1 Lat Peak E' Jerad: 9.9 cm/sec E/E' lat: 6.2 E/e' average: 6.6 MV dec time: 0.24 sec TR max jerad: 244.8 cm/sec SV(LVOT): 62.1 ml TR max P.0 mmHg PA V2 max: 150.8 cm/sec PA V2 mean: 108.2 cm/sec PA mean P.1 mmHg PA pr(Accel): 20.8 mmHg Reading Physician:05:08 PM
== END ==
PROVIDERS: Family Provider Internal Medicine; PCP Internal Medicine; Referring Provider Internal Medicine; Visit Provider Internal Medicine
DX: I08.3 Combined rheumatic disorders of mitral, aortic and tricuspid valves (principal); R55 Syncope and collapse
CPT/HCPCS: 93306

== ENCOUNTER → 2023-09-27 12:06 | Outpatient (CLI) | payer MEDICARE, SELFPAY ==
--- NOTE | 2023-09-27 | DI.US.S_ITS ---
PROCEDURE: US THYROID INDICATIONS: Nontoxic multinodular goiter TECHNIQUE: Real-time scanning was performed of the thyroid gland, with image documentation. COMPARISON: [facility], US, US THYROID, 10/19/2022, 10:14. FINDINGS: Thyroid: Right lobe measures 6.0 x 1.7 x 2.4 cm. Previously measurements were 5.2 x 1.7 x 2.3 cm. Left lobe measures 5.6 x 1.8 x 1.7 cm. Previous measurements were 5.7 x 1.6 x 1.7 cm. Isthmus is 0.2 cm thick. Echotexture is heterogeneous. Nodule number: 2 Location: Right middle pole Size: 2.1 x 1.3 x 1.7 cm, previously 2.1 x 1.1 x 1.9 cm . Apparently, previous FNA of this lesion was benign. Composition: Solid Echogenicity: Isoechoic Shape: wider than tall. Margins: Ill-defined Echogenic foci: Macro calcifications Total points: 4 ACR TI-RADS category: Moderately suspicious Nodule number: 3 Location: Right lower pole Size: 2.2 x 2.9 x 1.7 cm, previously 2.8 x 2.9 x 1.9 cm. Composition: Cystic Echogenicity: Anechoic Shape: wider than tall. Margins: Irregular Echogenic foci: None Total points: 0 ACR TI-RADS category: Benign Nodule number: 4 Location: Left upper pole Size: 1.2 x 0.6 x 0.6 cm, previously 1.2 x 0.5 x 0.8 cm. Composition: Solid Echogenicity: Hypoechoic Shape: Wider than tall Margins: Smooth Echogenic foci: None Total points: 4 ACR TI-RADS category: Moderately suspicious Nodule number: 5 Location: Left lower pole Size: 0.9 x 0.4 x 0.7 cm, previously 1.1 x 0.5 x 0.8 cm. Composition: Solid Echogenicity: Hypoechoic Shape: wider than tall. Margins: Smooth Echogenic foci: None Total points: 4 ACR TI-RADS category: Moderately suspicious IMPRESSION: Patient has a multinodular thyroid. Only 1 nodule satisfies criteria for FNA period this is nodule 2, in the right middle pole, measuring 2.1 cm in maximum diameter. However, by given history, it this lesion underwent previous FNA, with benign diagnosis. It is unchanged in size. Recommend repeat thyroid ultrasound in 12 months. ACR TI-RADS definitions and recommendations: TI-RADS 1 (benign): 0 points. FNA not needed. TI-RADS 2 (not suspicious): 2 points. FNA not needed. TI-RADS 3 (mildly suspicious): 3 points. * FNA if 2.5 cm or larger, follow up if 1.5 cm or larger (at 1, 3, and 5 years). TI-RADS 4 (moderately suspicious): 4-6 points. * FNA if 1.5 cm or larger, follow up if 1 cm or larger (at 1, 2, 3, and 5 years). TI-RADS 5 (highly suspicious): 7 points or more. * FNA if 1 cm or larger, follow up if 0.5 cm or larger (every year for 5 years). Dictated by: Edgar Jasso M.D. on 09/27/2023 at 17:14 Approved by: Edgar Jasso M.D. on 09/27/2023 at 17:21
== END ==
PROVIDERS: Family Provider Internal Medicine; PCP Internal Medicine; Referring Provider Internal Medicine Endocrinology, Diabetes & Metabolism; Visit Provider Internal Medicine Endocrinology, Diabetes & Metabolism
DX: E04.2 Nontoxic multinodular goiter (principal)
CPT/HCPCS: 76536

== ENCOUNTER → 2023-10-03 09:24 | Outpatient (CLI) | payer MEDICARE, SELFPAY ==
[2023-10-03 11:08] LABS: Free T4, Direct Thyroxine 0.87 ng/dL (0.78-2.19)
[2023-10-03 11:21] LABS: Prostate Specific Antigen 2.93 ng/mL (0.10-4.00)
[2023-10-03 11:22] LABS: Thyroid Stimulating Hormone 2.46 uIU/mL (0.47-4.68)
== END ==
PROVIDERS: Family Provider Internal Medicine; PCP Internal Medicine; Referring Provider Internal Medicine Endocrinology, Diabetes & Metabolism; Visit Provider Internal Medicine Endocrinology, Diabetes & Metabolism
DX: Z12.5 Encounter for screening for malignant neoplasm of prostate (principal); E04.2 Nontoxic multinodular goiter; Z80.42 Family history of malignant neoplasm of prostate
CPT/HCPCS: 36415; 84153; 84439; 84443; G0103

== ENCOUNTER → 2023-12-06 10:07 | Outpatient (CLI) | payer MEDICARE, SELFPAY ==
--- NOTE | 2023-12-06 10:09 | DI.RAD.S_ITS ---
PROCEDURE: XR TOE RT MIN 2V INDICATIONS: Right toe injury TECHNIQUE: 3 views of the 1st toe(s) acquired. COMPARISON: None. FINDINGS: Bones: No fractures or dislocations. No suspicious bony lesions. Scattered mild to moderate IP degenerative narrowing most severe at the 1st through 3rd DIP joints. Subchondral sclerosis is present. No distinct erosions. Soft tissues: No suspicious soft tissue densities. IMPRESSION: Degenerative changes. No visualized acute fracture or dislocation. However, if clinical concern and/or pain persist, short interval imaging followup in 7-10 days is recommended, as occult injury cannot be definitively excluded. Dictated by: Merry Hickman M.D. on 12/06/2023 at 14:18 Approved by: Merry Hickman M.D. on 12/06/2023 at 14:19
== END ==
LOC: RAD 10:08
PROVIDERS: PCP Internal Medicine; Referring Provider Nurse Practitioner Family; Visit Provider Nurse Practitioner Family
DX: S99.921A Unspecified injury of right foot, initial encounter (principal); X58.XXXA Exposure to other specified factors, initial encounter
CPT/HCPCS: 73660

== ENCOUNTER → 2024-01-08 13:23 | Outpatient (CLI) | payer MEDICARE, SELFPAY ==
[2024-01-09 07:40] LABS: Thyroid Peroxidase Antibodies <9 IU/mL (0-34)
[2024-01-09 21:12] LABS: Anti Thyroglobulin Antibody <1.0 IU/mL (0.0-0.9)
== END ==
PROVIDERS: PCP Internal Medicine; Referring Provider Internal Medicine Endocrinology, Diabetes & Metabolism; Visit Provider Internal Medicine Endocrinology, Diabetes & Metabolism
DX: E04.2 Nontoxic multinodular goiter (principal)
CPT/HCPCS: 36415; 86376; 86800

== ENCOUNTER → 2024-01-27 10:35 | Outpatient (CLI) | payer MEDICARE, SELFPAY ==
--- NOTE | 2024-01-27 | DI.MRI.S_ITS ---
PROCEDURE: MR HEAD/BRAIN WO/W CON INDICATIONS: DIZZINESS/IMBALANCE/HISTORY OF MULT CONCUSSIONS TECHNIQUE: Noncontrast axial T1 spin echo, axial T2 fast spin echo, sagittal and axial FLAIR, coronal T2 fast spin echo, axial gradient echo, axial diffusion and ADC through the brain. After the administration of contrast, axial and coronal and sagittal T1 spin echo with fat saturation through the brain. COMPARISON: CT, HEAD WITHOUT CONTRAST, 02/17/2017, 9:12. MR, BRAIN (IAC) W&WO CONTRAST, 12/05/2013, 7:44. FINDINGS: Image quality: Excellent. CSF spaces: Basal cisterns are patent. No extra-axial fluid collections. Ventricles are normal in size and shape. Brain: No midline shift. No intracranial bleeds or masses. No abnormal intracranial enhancement. There is cerebral volume loss for age. There is periventricular white matter chronic small vessel ischemic change. The brainstem appears normal. Diffusion-weighted images demonstrate no acute infarct. No chronic ischemic insults. Normal intravascular flow voids are present. Skull and face: Calvarial marrow is normal in signal. Orbits appear normal. Sinuses: Sinuses demonstrate prominent mucosal thickening in the left maxillary sinus. IMPRESSION: 1. No acute intracranial process. 2. Moderate atrophy and chronic microvascular ischemic changes. Dictated by: Merry Hickman M.D. on 01/29/2024 at 10:58 Approved by: Merry Hickman M.D. on 01/29/2024 at 10:59
== END ==
LOC: MRI 10:37
PROVIDERS: PCP Internal Medicine; Referring Provider Otolaryngology; Visit Provider Otolaryngology
DX: R42 Dizziness and giddiness (principal); R26.89 Other abnormalities of gait and mobility; Z87.820 Personal history of traumatic brain injury; H93.A3 Pulsatile tinnitus, bilateral
CPT/HCPCS: 70553; A9579

== ENCOUNTER → 2024-03-02 13:39 | Outpatient (CLI) | payer MEDICARE, SELFPAY ==
--- NOTE | 2024-03-02 13:41 | DI.MRI.S_ITS ---
PROCEDURE: MR ANGIO NECK W CON INDICATIONS: pulsitile tinnitus TECHNIQUE: Axial and sagittal TruFISP through the neck. Coronal dynamic MRA after the administration of contrast in the arterial and venous phases, with rotating 3-dimensional maximum intensity projection (MIP) reformats constructed from subtraction images. COMPARISON: Ultrasound of the carotid arteries bilaterally on 10/02/2023. FINDINGS: Image quality: Excellent. Carotid system: Great vessels demonstrate a conventional anatomy as they arise from the aortic arch. The origins of the common carotid arteries appear normal. The calibers and courses of the common carotid arteries are likewise normal. The carotid bifurcations appear normal bilaterally. The internal carotid arteries are widely patent up to the [place]. Posterior circulation: The origins of the vertebral arteries are unremarkable. The more superior portions of the vertebral arteries demonstrate normal course and caliber. Vertebral arteries join to form a normal appearing basilar artery. Miscellaneous: Subclavian arteries are patent throughout. There is an 8 mm nodule within the posterior right thyroid lobe. IMPRESSION: 1. No high-grade stenosis, aneurysmal dilatation or large vessel occlusion of the arteries of the head and neck. 2. There is an 8 mm nodule within the posterior right thyroid lobe. This can be further evaluated with ultrasound on a nonemergent basis. Any quantitative measurements of stenosis were performed using NASCET criteria. Dictated by: Claude Eller M.D. on 03/04/2024 at 9:48 Approved by: Claude Eller M.D. on 03/04/2024 at 10:05
== END ==
LOC: MRI 13:41
PROVIDERS: Family Provider Internal Medicine; PCP Internal Medicine; Referring Provider Internal Medicine; Visit Provider Internal Medicine
DX: H93.A9 Pulsatile tinnitus, unspecified ear (principal); E04.1 Nontoxic single thyroid nodule
CPT/HCPCS: 70548; A9579

== ENCOUNTER 2024-04-19 09:00 | Outpatient (RCR) | payer MEDICARE, SELFPAY ==
--- NOTE | 2024-02-23 16:23 | PT.OIE ---
Current Diagnoses Other abnormalities of gait and mobility (02/23/24) Dizziness and giddiness (02/23/24) Personal history of traumatic brain injury (02/23/24) Past Medical History (Last Reviewed 10/09/23 @ 10:07 by Brenton Alonso MD) Actinic keratosis of scalp (02/17/14) Anxiety (02/17/14) BPH w urinary obs/LUTS Central serous retinopathy (~1993) Daily headache (02/17/14) Diverticular disease (~1993) Erectile dysfunction Family history of prostate cancer Fractures (~1973) Hemorrhoid (~2003) Insomnia (~2010) Internal hemorrhoids (10/28/14) Irritable bowel syndrome Macrocytosis (~2012) Migraines (~2010) Nonallopathic lesion of cervical region (10/28/14) Peyronie disease Postconcussion syndrome (02/17/14) Reflux (06/09/14) Seborrheic keratosis (02/17/14) Thyroid nodule (~2012) Tinnitus Tubular adenoma of colon (10/28/14) Vertigo Vertigo (~2010) Past Surgical History (Last Reviewed 10/09/23 @ 10:07 by Brenton Alonso MD) Inguinal hernia (~2013) S/P rotator cuff repair (~07/2022) Status post colonoscopy (~2014) Status post hernia repair (~1964) Visit Care Team Role Provider Type Brenton Alonso MD Family Provider Physician Primary Care Provider Specialty: Internal Medicine Address: [address] [place] [address] Email: [email or web address] Sudheer Aguilar MD Attending Provider Physician Referring Provider Specialty: Ear, Nose, Throat Address: [address] [place] [address], [facility] Email: [email or web address] Physical Therapy Initial Evaluation PT-OP-A Visit Information Start: 02/23/24 15:44 Freq: Status: Active Protocol: Document 02/23/24 14:30 DCW (Rec: 02/23/24 16:23 DCW [id number]) Out-Patient Physical Therapy Visit Information Visit Information Visit Type Initial Evaluation Visit Start Time 14:30 Visit Stop Time 15:35 Visit Number 1 Number of INDUSTRIAL ELECTRICIAN JOURNEYMAN Visits 0 Evaluation Information Evaluation Date 02/23/24 PT-OP-B Current Condition Start: 02/23/24 15:44 Freq: Status: Active Protocol: Document 02/23/24 14:30 DCW (Rec: 02/23/24 16:23 [facility] [id number]) Current Condition History of Current Condition Onset Date 10 year history Current Complaints Long history of dizziness/ unsteadiness History of Current Condition Pt is a 73 year old male complaining of a ten year history of spontaneous, near- constant sense of pitch and roll, like he is on a boat. Symptoms are worse when up moving around, or leaning forward. Over the last ten years, pt has had extensive work-ups for many various conditions, but has not gotten any answers yet. Has received MRI and VNG, both of which we largely negative. Has been tested/treated for BPPV, however pt reports symptoms were worse afterward. Pt has read multiple case studies, and one, which pt notes sounded exactly like his complaints, recommended Clonazepam, which seemed to help somewhat for a time, however due to effects from long-term use, pt has been trying to reduce use. Pt did suffer from multiple concussions over the years, including two over the span of three weeks in 2010, which appears to be prior to start of symptoms. Pt has spent a lot of time on boats over the years. Notes tinnitus has been getting worse, is currently more of a constant pulsing sound, with varying underlying changes in tone and noise, and has a three-fold increase with turning his head or opening his jaw. Pt does note a history of thyroid nodules and a cyst that he notes is wrapped around some vasculature in there so that no one wants to mess with it. Prior Treatments and Tests Brain MRI: IMPRESSION: 1. No acute intracranial process. 2. Moderate atrophy and chronic microvascular ischemic changes . Merry Hickman M.D. on 2023 PT-OP-C Subjective Start: 02/23/24 15:44 Freq: Status: Active Protocol: Document 02/23/24 14:30 DCW (Rec: 02/23/24 16:23 [facility] [id number]) OP-PT Subjective Patient Comments Patient Comments I've been doing Johnson-Daroff exercises for years, but they don't seem to do anything. Patient Questionnaires ABC- Activity Specific Balance Confidence Scale ABC Score 31.88% Dizziness Handicap Inventory DHI Score 52% DHI Functional Impairment 40 to 59% Impaired (Score 40- 59) Other Questionnaire Name and Score Falls Efficacy Scale - International: 43/64 PT-OP-O Vestibular Start: 02/23/24 15:44 Freq: Status: Active Protocol: Document 02/23/24 14:30 DCW (Rec: 02/23/24 16:23 [facility] [id number]) Vestibular Assessment Auditory Tests Oseguera Test Within normal limits Rinne Test Negative Air Conduction Results Equal Visual Testing Smooth Pursuits Horizontal WNL Smooth Pursuits Vertical WNL Saccades Horizontal WNL Saccades Vertical WNL DVA (Line Degradation) 4 Vasalva Test Positive Comments Vestibular Comments Tullio Phenomenon: Negative with 500 Hz and 1000 Hz Vertebral Artery Testing: Increased Tinnitus x3 bilaterally PT-OP-Q Treatments Start: 02/23/24 15:44 Freq: Status: Active Protocol: Document 02/23/24 14:30 DCW (Rec: 02/23/24 16:23 [facility] [id number]) Self-Care/Home Management Treatment Education Other Education Substantial time spent today of pt education regarding therapy expectations, A&P of vestibular system, Various DDx , and plans for next step in rehab process. PT-OP-T Assessment and Plan Start: 02/23/24 15:44 Freq: Status: Active Protocol: Document 02/23/24 14:30 DCW (Rec: 02/23/24 16:23 [facility] [id number]) Physical Therapy Assessment Rehab Potential Rehabilitation Potential Good Evaluation Complexity Number of Personal Factors/Comorbidities 3 or More Number of Body Systems Impaired 4 or More Clinical Presentation at Evaluation Unstable Impairments Impairments Balance,Functional Activities, Functional Mobility,Vestibular Goals Two Impairment Pt exhibits a four line degradation with DVA testing Chcf Goal (LTG) Pt to demonstrate a DVA of two line degradation or less in order to exhibit improved VOR to decrease instability with movement LTG Duration 04/24/24 One Impairment Pt does not have an appropriate home exercise program Short Term Goal (STG) Pt to be independent and compliant with an appropriate HEP STG Duration 03/25/24 Assessment Summary Assessment Pt presents with wide ranging signs and symptoms which are incredibly difficult to DDx. Pt has already undergone multiple different diagnostic tests with minimal results. None of pt's subjective complaints are too suggestive of any specific vestibular dysfunction, but does have an occasional symptoms that may be mildly suggestive of one thing or another that may benefit from further testing. With increased symptoms during cervical rotation, as well as non-specific nystagmus with no reversal during Hallpike testing, may indicate concerns for arterial insufficiency. Could possibly benefit from cervical MRA examination. Additionally, valsalva test positive for increase in symptom severity and visual auras may indicate potential superior canal dehiscence. Unfortunately, pt does not exhibit any other symptoms of SCD, no increased bone conduction, no Tullio phenomenon, no positive oseguera test. Gold standard for SCD diagnosis includes high- resolution CT with 0.5 mm cuts in plane of superior canal, which again, may be beneficial in the future. As pt has not yet attempted any vestibular rehabilitation or oculomotor TherEx, may be worth it as a trial to determine if there is any change in symptoms. Focus on VOR, Vestibular habituation/adaptation, dynamic head movements, and visual motion stimuli. Physical Therapy Plan Frequency and Duration Frequency of Treatment 2x/Week Plan of Care Start Date 02/23/24 Plan of Care End Date 04/24/24 Therapeutic Interventions Therapeutic Interventions Balance Training,Canalithic Repositioning,Coordination Training,Home Exercise Program ,Manual Therapy,Neuromuscular Re-education,Patient/Caregiver Education,Self-Care/Home Management,Soft Tissue Mobilization,Therapeutic Activities,Therapeutic Exercises,Vestibular Rehabilitation Next Visit Focus/Plan Next Note Type Treatment Note Next Visit Plan Vestibular rehab exercises, X1 /X2, VOR
--- NOTE | 2024-02-26 14:30 | PT.OTN ---
Current Diagnoses Other abnormalities of gait and mobility (02/26/24) Dizziness and giddiness (02/26/24) Personal history of traumatic brain injury (02/26/24) Physical Therapy Treatment Note PT-OP-A Visit Information Start: 02/23/24 15:44 Freq: Status: Active Protocol: Document 02/26/24 13:45 DCW (Rec: 02/26/24 14:30 DCW [id number]) Out-Patient Physical Therapy Visit Information Visit Information Visit Type Treatment Note Visit Start Time 13:45 Visit Stop Time 14:30 Visit Number 2 Number of MATERIALS SUPERVISOR Visits 0 Evaluation Information Evaluation Date 02/23/24 PT-OP-B Current Condition Start: 02/23/24 15:44 Freq: Status: Active Protocol: Document 02/23/24 14:30 DCW (Rec: 02/23/24 16:23 DCW [id number]) Current Condition History of Current Condition Onset Date 10 year history Current Complaints Long history of dizziness/ unsteadiness History of Current Condition Pt is a 73 year old male complaining of a ten year history of spontaneous, near- constant sense of pitch and roll, like he is on a boat. Symptoms are worse when up moving around, or leaning forward. Over the last ten years, pt has had extensive work-ups for many various conditions, but has not gotten any answers yet. Has received MRI and VNG, both of which we largely negative. Has been tested/treated for BPPV, however pt reports symptoms were worse afterward. Pt has read multiple case studies, and one, which pt notes sounded exactly like his complaints, recommended Clonazepam, which seemed to help somewhat for a time, however due to effects from long-term use, pt has been trying to reduce use. Pt did suffer from multiple concussions over the years, including two over the span of three weeks in 2010, which appears to be prior to start of symptoms. Pt has spent a lot of time on boats over the years. Notes tinnitus has been getting worse, is currently more of a constant pulsing sound, with varying underlying changes in tone and noise, and has a three-fold increase with turning his head or opening his jaw. Pt does note a history of thyroid nodules and a cyst that he notes is wrapped around some vasculature in there so that no one wants to mess with it. Prior Treatments and Tests Brain MRI: IMPRESSION: 1. No acute intracranial process. 2. Moderate atrophy and chronic microvascular ischemic changes . Merry Hickman M.D. on 2023 PT-OP-C Subjective Start: 02/23/24 15:44 Freq: Status: Active Protocol: Document 02/26/24 13:45 DCW (Rec: 02/26/24 14:30 DCW [id number]) OP-PT Subjective Patient Comments Patient Comments No increased symptoms following eval. PT-OP-O Vestibular Start: 02/23/24 15:44 Freq: Status: Active Protocol: Document 02/23/24 14:30 DCW (Rec: 02/23/24 16:23 DCW [id number]) Vestibular Assessment Auditory Tests Cullen Test Within normal limits Rinne Test Negative Air Conduction Results Equal Visual Testing Smooth Pursuits Horizontal WNL Smooth Pursuits Vertical WNL Saccades Horizontal WNL Saccades Vertical WNL DVA (Line Degradation) 4 Vasalva Test Positive Comments Vestibular Comments Tullio Phenomenon: Negative with 500 Hz and 1000 Hz Vertebral Artery Testing: Increased Tinnitus x3 bilaterally PT-OP-Q Treatments Start: 02/23/24 15:44 Freq: Status: Active Protocol: Document 02/26/24 13:45 DCW (Rec: 02/26/24 14:30 DCW [id number]) Gym Equipment Shuttle Balance Red Details WBOS, Staggered, Lateral Neuro Re-Education Treatment Balance Activities Dynamic Gait Details Hallway ambulation Comments Head Turns (Horizontal/ Vertical: 90->120 bpm) Tandem Gait Vestibular Rehabilitation Disco Ball Details Disco ball Position Standing on AirEx Corrective Saccades Details Eyes, then head Distance From Target Arm's length Speed as tolerated Position Sitting X2 Viewing Details Target and head moving in opposite directions Distance From Target Arm's length Speed as tolerated Position Sitting X1 Viewing Details Static target, head turns Distance From Target Arm's length Speed as tolerated Position Sitting VOR Retraining Details Target and head moving together Distance From Target Arm's length Speed as tolerated Position Sitting PT-OP-T Assessment and Plan Start: 02/23/24 15:44 Freq: Status: Active Protocol: Document 02/26/24 13:45 DCW (Rec: 02/26/24 14:30 DCW [id number]) Physical Therapy Assessment Impairments Impairments Balance,Functional Activities, Functional Mobility,Vestibular Goals Two Impairment Pt exhibits a four line degradation with DVA testing City Dispatch Supervisor Goal (LTG) Pt to demonstrate a DVA of two line degradation or less in order to exhibit improved VOR to decrease instability with movement LTG Duration 04/24/24 One Impairment Pt does not have an appropriate home exercise program Short Term Goal (STG) Pt to be independent and compliant with an appropriate HEP STG Duration 03/25/24 Assessment Summary Assessment Good overall response, pt felt activities today were sufficiently challenging. Continue to focus on balance challenges and vestibular rehab. Physical Therapy Plan Frequency and Duration Frequency of Treatment 2x/Week Plan of Care Start Date 02/23/24 Plan of Care End Date 04/24/24 Therapeutic Interventions Therapeutic Interventions Balance Training,Canalithic Repositioning,Coordination Training,Home Exercise Program ,Manual Therapy,Neuromuscular Re-education,Patient/Caregiver Education,Self-Care/Home Management,Soft Tissue Mobilization,Therapeutic Activities,Therapeutic Exercises,Vestibular Rehabilitation Next Visit Focus/Plan Next Note Type Treatment Note Next Visit Plan Vestibular rehab exercises, X1 /X2, VOR
--- NOTE | 2024-03-13 12:01 | PT.OTN ---
Current Diagnoses Other abnormalities of gait and mobility (03/13/24) Dizziness and giddiness (03/13/24) Personal history of traumatic brain injury (03/13/24) Physical Therapy Treatment Note PT-OP-A Visit Information Start: 02/23/24 15:44 Freq: Status: Active Protocol: Document 03/13/24 11:15 DCW (Rec: 03/13/24 12:01 DCW [id number]) Out-Patient Physical Therapy Visit Information Visit Information Visit Type Treatment Note Visit Start Time 11:15 Visit Stop Time 12:00 Visit Number 3 Number of SURFACE SUPERVISOR Visits 0 Evaluation Information Evaluation Date 02/23/24 PT-OP-B Current Condition Start: 02/23/24 15:44 Freq: Status: Active Protocol: Document 02/23/24 14:30 DCW (Rec: 02/23/24 16:23 DCW [id number]) Current Condition History of Current Condition Onset Date 10 year history Current Complaints Long history of dizziness/ unsteadiness History of Current Condition Pt is a 73 year old male complaining of a ten year history of spontaneous, near- constant sense of pitch and roll, like he is on a boat. Symptoms are worse when up moving around, or leaning forward. Over the last ten years, pt has had extensive work-ups for many various conditions, but has not gotten any answers yet. Has received MRI and VNG, both of which we largely negative. Has been tested/treated for BPPV, however pt reports symptoms were worse afterward. Pt has read multiple case studies, and one, which pt notes sounded exactly like his complaints, recommended Clonazepam, which seemed to help somewhat for a time, however due to effects from long-term use, pt has been trying to reduce use. Pt did suffer from multiple concussions over the years, including two over the span of three weeks in 2010, which appears to be prior to start of symptoms. Pt has spent a lot of time on boats over the years. Notes tinnitus has been getting worse, is currently more of a constant pulsing sound, with varying underlying changes in tone and noise, and has a three-fold increase with turning his head or opening his jaw. Pt does note a history of thyroid nodules and a cyst that he notes is wrapped around some vasculature in there so that no one wants to mess with it. Prior Treatments and Tests Brain MRI: IMPRESSION: 1. No acute intracranial process. 2. Moderate atrophy and chronic microvascular ischemic changes . Merry Hickman M.D. on 2023 PT-OP-C Subjective Start: 02/23/24 15:44 Freq: Status: Active Protocol: Document 03/13/24 11:15 DCW (Rec: 03/13/24 12:01 DCW [id number]) OP-PT Subjective Patient Comments Patient Comments Pt notes he has been compliant with oculomotor exercises, but admits that they don't seem to be doing much. Did get MRA of neck, unremarkable, no evidence of stenosis or occlusion PT-OP-O Vestibular Start: 02/23/24 15:44 Freq: Status: Active Protocol: Document 02/23/24 14:30 DCW (Rec: 02/23/24 16:23 DCW [id number]) Vestibular Assessment Auditory Tests Cullen Test Within normal limits Rinne Test Negative Air Conduction Results Equal Visual Testing Smooth Pursuits Horizontal WNL Smooth Pursuits Vertical WNL Saccades Horizontal WNL Saccades Vertical WNL DVA (Line Degradation) 4 Vasalva Test Positive Comments Vestibular Comments Tullio Phenomenon: Negative with 500 Hz and 1000 Hz Vertebral Artery Testing: Increased Tinnitus x3 bilaterally PT-OP-Q Treatments Start: 02/23/24 15:44 Freq: Status: Active Protocol: Document 03/13/24 11:15 DCW (Rec: 03/13/24 12:01 DCW [id number]) Gym Equipment Shuttle Rebound Ball Toss Exercise Details Staggered stance on AirEx Comments Red 1000g ball Shuttle Balance Red Details WBOS, Staggered, Lateral Neuro Re-Education Treatment Balance Activities BOSU Details BOSU Surface both sides Comments DLS, SLS Dynamic Gait Details Hallway ambulation Comments Head Turns (Horizontal/ Vertical: 120 bpm) Tandem Gait Retro Gait Eyes closed gait Vestibular Rehabilitation Disco Ball Details Disco ball Position SLS/DLS on AirEx PT-OP-T Assessment and Plan Start: 02/23/24 15:44 Freq: Status: Active Protocol: Document 03/13/24 11:15 DCW (Rec: 03/13/24 12:01 DCW [id number]) Physical Therapy Assessment Impairments Impairments Balance,Functional Activities, Functional Mobility,Vestibular Goals Two Impairment Pt exhibits a four line degradation with DVA testing Program Director Goal (LTG) Pt to demonstrate a DVA of two line degradation or less in order to exhibit improved VOR to decrease instability with movement LTG Duration 04/24/24 One Impairment Pt does not have an appropriate home exercise program Short Term Goal (STG) Pt to be independent and compliant with an appropriate HEP STG Duration 03/25/24 Assessment Summary Assessment Challenged with eyes closed and single leg stance, but vestibular challenges do not appear to be increasing symptoms or causing any response. Continue to work on balance and coordination challenges Physical Therapy Plan Frequency and Duration Frequency of Treatment 2x/Week Plan of Care Start Date 02/23/24 Plan of Care End Date 04/24/24 Therapeutic Interventions Therapeutic Interventions Balance Training,Canalithic Repositioning,Coordination Training,Home Exercise Program ,Manual Therapy,Neuromuscular Re-education,Patient/Caregiver Education,Self-Care/Home Management,Soft Tissue Mobilization,Therapeutic Activities,Therapeutic Exercises,Vestibular Rehabilitation Next Visit Focus/Plan Next Note Type Treatment Note Next Visit Plan Vestibular rehab exercises, X1 /X2, VOR
--- NOTE | 2024-03-15 09:44 | PT.OTN ---
Current Diagnoses Other abnormalities of gait and mobility (03/15/24) Dizziness and giddiness (03/15/24) Personal history of traumatic brain injury (03/15/24) Physical Therapy Treatment Note PT-OP-A Visit Information Start: 02/23/24 15:44 Freq: Status: Active Protocol: Document 03/15/24 09:00 DCW (Rec: 03/15/24 09:44 DCW [id number]) Out-Patient Physical Therapy Visit Information Visit Information Visit Type Treatment Note Visit Start Time 09:00 Visit Stop Time 09:40 Visit Number 4 Number of MID LEVEL PRACTITIONER Visits 0 Evaluation Information Evaluation Date 02/23/24 PT-OP-B Current Condition Start: 02/23/24 15:44 Freq: Status: Active Protocol: Document 02/23/24 14:30 DCW (Rec: 02/23/24 16:23 DCW [id number]) Current Condition History of Current Condition Onset Date 10 year history Current Complaints Long history of dizziness/ unsteadiness History of Current Condition Pt is a 73 year old male complaining of a ten year history of spontaneous, near- constant sense of pitch and roll, like he is on a boat. Symptoms are worse when up moving around, or leaning forward. Over the last ten years, pt has had extensive work-ups for many various conditions, but has not gotten any answers yet. Has received MRI and VNG, both of which we largely negative. Has been tested/treated for BPPV, however pt reports symptoms were worse afterward. Pt has read multiple case studies, and one, which pt notes sounded exactly like his complaints, recommended Clonazepam, which seemed to help somewhat for a time, however due to effects from long-term use, pt has been trying to reduce use. Pt did suffer from multiple concussions over the years, including two over the span of three weeks in 2010, which appears to be prior to start of symptoms. Pt has spent a lot of time on boats over the years. Notes tinnitus has been getting worse, is currently more of a constant pulsing sound, with varying underlying changes in tone and noise, and has a three-fold increase with turning his head or opening his jaw. Pt does note a history of thyroid nodules and a cyst that he notes is wrapped around some vasculature in there so that no one wants to mess with it. Prior Treatments and Tests Brain MRI: IMPRESSION: 1. No acute intracranial process. 2. Moderate atrophy and chronic microvascular ischemic changes . Merry Hickman M.D. on 2023 PT-OP-C Subjective Start: 02/23/24 15:44 Freq: Status: Active Protocol: Document 03/15/24 09:00 DCW (Rec: 03/15/24 09:44 DCW [id number]) OP-PT Subjective Patient Comments Patient Comments About the same, notes he did a workout yesterday, did some practice with the BOSU. PT-OP-O Vestibular Start: 02/23/24 15:44 Freq: Status: Active Protocol: Document 02/23/24 14:30 DCW (Rec: 02/23/24 16:23 DCW [id number]) Vestibular Assessment Auditory Tests Cullen Test Within normal limits Rinne Test Negative Air Conduction Results Equal Visual Testing Smooth Pursuits Horizontal WNL Smooth Pursuits Vertical WNL Saccades Horizontal WNL Saccades Vertical WNL DVA (Line Degradation) 4 Vasalva Test Positive Comments Vestibular Comments Tullio Phenomenon: Negative with 500 Hz and 1000 Hz Vertebral Artery Testing: Increased Tinnitus x3 bilaterally PT-OP-Q Treatments Start: 02/23/24 15:44 Freq: Status: Active Protocol: Document 03/15/24 09:00 DCW (Rec: 03/15/24 09:44 DCW [id number]) Gym Equipment Shuttle Balance Red Comments WBOS (ball toss, EO/EC) Staggered (ball toss) Lateral (head turns) Neuro Re-Education Treatment Balance Activities Dynadisc Surface Large blue dynadisc Comments DLS, SLS Dynamic Gait Details Hallway ambulation Comments Head Turns (Horizontal/ Vertical/Diagonal: 120 bpm) Tandem Gait (fwd/bkwd) Eyes closed gait PT-OP-T Assessment and Plan Start: 02/23/24 15:44 Freq: Status: Active Protocol: Document 03/15/24 09:00 DCW (Rec: 03/15/24 09:44 DCW [id number]) Physical Therapy Assessment Impairments Impairments Balance,Functional Activities, Functional Mobility,Vestibular Goals Two Impairment Pt exhibits a four line degradation with DVA testing Icu Specialist Goal (LTG) Pt to demonstrate a DVA of two line degradation or less in order to exhibit improved VOR to decrease instability with movement LTG Duration 04/24/24 One Impairment Pt does not have an appropriate home exercise program Short Term Goal (STG) Pt to be independent and compliant with an appropriate HEP STG Duration 03/25/24 Assessment Summary Assessment Continues to do well with challenges. Unclear at this time how impactful vestibular rehabilitation has been, pt does not feel there has been much change in symptoms. Will reassess within the next 1-2 visits, determine plan going forward. May need to return/ follow-up with ENT or PCP. Physical Therapy Plan Frequency and Duration Frequency of Treatment 2x/Week Plan of Care Start Date 02/23/24 Plan of Care End Date 04/24/24 Therapeutic Interventions Therapeutic Interventions Balance Training,Canalithic Repositioning,Coordination Training,Home Exercise Program ,Manual Therapy,Neuromuscular Re-education,Patient/Caregiver Education,Self-Care/Home Management,Soft Tissue Mobilization,Therapeutic Activities,Therapeutic Exercises,Vestibular Rehabilitation Next Visit Focus/Plan Next Note Type Treatment Note Next Visit Plan Vestibular rehab exercises, X1 /X2, VOR
--- NOTE | 2024-03-19 15:58 | PT.OTN ---
Current Diagnoses Other abnormalities of gait and mobility (03/19/24) Dizziness and giddiness (03/19/24) Personal history of traumatic brain injury (03/19/24) Physical Therapy Treatment Note PT-OP-A Visit Information Start: 02/23/24 15:44 Freq: Status: Active Protocol: Document 03/19/24 15:15 DCW (Rec: 03/19/24 15:58 DCW [id number]) Out-Patient Physical Therapy Visit Information Visit Information Visit Type Treatment Note Visit Start Time 15:15 Visit Stop Time 16:00 Visit Number 5 Number of CONTRACT MAIL CARRIER Visits 0 Evaluation Information Evaluation Date 02/23/24 PT-OP-B Current Condition Start: 02/23/24 15:44 Freq: Status: Active Protocol: Document 02/23/24 14:30 DCW (Rec: 02/23/24 16:23 DCW [id number]) Current Condition History of Current Condition Onset Date 10 year history Current Complaints Long history of dizziness/ unsteadiness History of Current Condition Pt is a 73 year old male complaining of a ten year history of spontaneous, near- constant sense of pitch and roll, like he is on a boat. Symptoms are worse when up moving around, or leaning forward. Over the last ten years, pt has had extensive work-ups for many various conditions, but has not gotten any answers yet. Has received MRI and VNG, both of which we largely negative. Has been tested/treated for BPPV, however pt reports symptoms were worse afterward. Pt has read multiple case studies, and one, which pt notes sounded exactly like his complaints, recommended Clonazepam, which seemed to help somewhat for a time, however due to effects from long-term use, pt has been trying to reduce use. Pt did suffer from multiple concussions over the years, including two over the span of three weeks in 2010, which appears to be prior to start of symptoms. Pt has spent a lot of time on boats over the years. Notes tinnitus has been getting worse, is currently more of a constant pulsing sound, with varying underlying changes in tone and noise, and has a three-fold increase with turning his head or opening his jaw. Pt does note a history of thyroid nodules and a cyst that he notes is wrapped around some vasculature in there so that no one wants to mess with it. Prior Treatments and Tests Brain MRI: IMPRESSION: 1. No acute intracranial process. 2. Moderate atrophy and chronic microvascular ischemic changes . Merry Hickman M.D. on 2023 PT-OP-C Subjective Start: 02/23/24 15:44 Freq: Status: Active Protocol: Document 03/19/24 15:15 DCW (Rec: 03/19/24 15:58 DCW [id number]) OP-PT Subjective Patient Comments Patient Comments As the day goes on, I seem to get worse. PT-OP-O Vestibular Start: 02/23/24 15:44 Freq: Status: Active Protocol: Document 02/23/24 14:30 DCW (Rec: 02/23/24 16:23 DCW [id number]) Vestibular Assessment Auditory Tests Cullen Test Within normal limits Rinne Test Negative Air Conduction Results Equal Visual Testing Smooth Pursuits Horizontal WNL Smooth Pursuits Vertical WNL Saccades Horizontal WNL Saccades Vertical WNL DVA (Line Degradation) 4 Vasalva Test Positive Comments Vestibular Comments Tullio Phenomenon: Negative with 500 Hz and 1000 Hz Vertebral Artery Testing: Increased Tinnitus x3 bilaterally PT-OP-Q Treatments Start: 02/23/24 15:44 Freq: Status: Active Protocol: Document 03/19/24 15:15 DCW (Rec: 03/19/24 15:58 DCW [id number]) Gym Equipment Shuttle Rebound Chain Reading Exercise Details Chain Reading /c bounce Shuttle Balance Red Comments WBOS (ball toss, EO/EC) Staggered (ball toss) Lateral (head turns) Neuro Re-Education Treatment Balance Activities Laser Details Laser VOR, signature Surface AirEx Equipment Visual conflict BOSU Details BOSU Surface Blue Comments SLS Dynamic Gait Details Hallway ambulation Comments Head Turns (Horizontal/ Vertical/Diagonal: 120 bpm) Tandem Gait (fwd/bkwd) Eyes closed gait PT-OP-T Assessment and Plan Start: 02/23/24 15:44 Freq: Status: Active Protocol: Document 03/19/24 15:15 DCW (Rec: 03/19/24 15:58 DCW [id number]) Physical Therapy Assessment Impairments Impairments Balance,Functional Activities, Functional Mobility,Vestibular Goals Two Impairment Pt exhibits a four line degradation with DVA testing Correction Goal (LTG) Pt to demonstrate a DVA of two line degradation or less in order to exhibit improved VOR to decrease instability with movement LTG Duration 04/24/24 One Impairment Pt does not have an appropriate home exercise program Short Term Goal (STG) Pt to be independent and compliant with an appropriate HEP STG Duration 03/25/24 Assessment Summary Assessment Pt tolerated new activities well, no complaints with increased symptoms during PT, however does note fatigue by end of session. Physical Therapy Plan Frequency and Duration Frequency of Treatment 2x/Week Plan of Care Start Date 02/23/24 Plan of Care End Date 04/24/24 Therapeutic Interventions Therapeutic Interventions Balance Training,Canalithic Repositioning,Coordination Training,Home Exercise Program ,Manual Therapy,Neuromuscular Re-education,Patient/Caregiver Education,Self-Care/Home Management,Soft Tissue Mobilization,Therapeutic Activities,Therapeutic Exercises,Vestibular Rehabilitation Next Visit Focus/Plan Next Note Type Treatment Note Next Visit Plan Vestibular rehab exercises, X1 /X2, VOR
--- NOTE | 2024-04-19 09:39 | PT.OTN ---
Current Diagnoses Other abnormalities of gait and mobility (04/19/24) Dizziness and giddiness (04/19/24) Personal history of traumatic brain injury (04/19/24) Physical Therapy Treatment Note PT-OP-A Visit Information Start: 02/23/24 15:44 Freq: Status: Active Protocol: Document 04/19/24 09:00 DCW (Rec: 04/19/24 09:39 DCW [id number]) Out-Patient Physical Therapy Visit Information Visit Information Visit Type Discharge Summary Visit Start Time 09:00 Visit Stop Time 09:30 Visit Number 6 Number of GATE KEEPER Visits 0 Evaluation Information Evaluation Date 02/23/24 PT-OP-B Current Condition Start: 02/23/24 15:44 Freq: Status: Active Protocol: Document 02/23/24 14:30 DCW (Rec: 02/23/24 16:23 DCW [id number]) Current Condition History of Current Condition Onset Date 10 year history Current Complaints Long history of dizziness/ unsteadiness History of Current Condition Pt is a 73 year old male complaining of a ten year history of spontaneous, near- constant sense of pitch and roll, like he is on a boat. Symptoms are worse when up moving around, or leaning forward. Over the last ten years, pt has had extensive work-ups for many various conditions, but has not gotten any answers yet. Has received MRI and VNG, both of which we largely negative. Has been tested/treated for BPPV, however pt reports symptoms were worse afterward. Pt has read multiple case studies, and one, which pt notes sounded exactly like his complaints, recommended Clonazepam, which seemed to help somewhat for a time, however due to effects from long-term use, pt has been trying to reduce use. Pt did suffer from multiple concussions over the years, including two over the span of three weeks in 2010, which appears to be prior to start of symptoms. Pt has spent a lot of time on boats over the years. Notes tinnitus has been getting worse, is currently more of a constant pulsing sound, with varying underlying changes in tone and noise, and has a three-fold increase with turning his head or opening his jaw. Pt does note a history of thyroid nodules and a cyst that he notes is wrapped around some vasculature in there so that no one wants to mess with it. Prior Treatments and Tests Brain MRI: IMPRESSION: 1. No acute intracranial process. 2. Moderate atrophy and chronic microvascular ischemic changes . Merry Hickman M.D. on 2023 PT-OP-C Subjective Start: 02/23/24 15:44 Freq: Status: Active Protocol: Document 04/19/24 09:00 DCW (Rec: 04/19/24 09:39 DCW [id number]) OP-PT Subjective Patient Comments Patient Comments I've noticed that as I progress through my day, my vertigo gets significantly worse, and I need to get horizontal to kind of reset my personal gyroscope. Pt admits that if anything, symptoms have worsened since starting PT PT-OP-O Vestibular Start: 02/23/24 15:44 Freq: Status: Active Protocol: Document 02/23/24 14:30 DCW (Rec: 02/23/24 16:23 DCW [id number]) Vestibular Assessment Auditory Tests Cullen Test Within normal limits Rinne Test Negative Air Conduction Results Equal Visual Testing Smooth Pursuits Horizontal WNL Smooth Pursuits Vertical WNL Saccades Horizontal WNL Saccades Vertical WNL DVA (Line Degradation) 4 Vasalva Test Positive Comments Vestibular Comments Tullio Phenomenon: Negative with 500 Hz and 1000 Hz Vertebral Artery Testing: Increased Tinnitus x3 bilaterally PT-OP-Q Treatments Start: 02/23/24 15:44 Freq: Status: Active Protocol: Document 04/19/24 09:00 DCW (Rec: 04/19/24 09:39 DCW [id number]) Self-Care/Home Management Treatment Education Other Education Discussed ongoing symptoms, changes since beginning therapy, pt's previous diagnostic testing, and possible next steps PT-OP-T Assessment and Plan Start: 02/23/24 15:44 Freq: Status: Active Protocol: Document 04/19/24 09:00 DCW (Rec: 04/19/24 09:39 DCW [id number]) Physical Therapy Assessment Impairments Impairments Balance,Functional Activities, Functional Mobility,Vestibular Goals Two Impairment Pt exhibits a four line degradation with DVA testing Usp Goal (LTG) Pt to demonstrate a DVA of two line degradation or less in order to exhibit improved VOR to decrease instability with movement LTG Duration 04/24/24 One Impairment Pt does not have an appropriate home exercise program Short Term Goal (STG) Pt to be independent and compliant with an appropriate HEP STG Duration 03/25/24 Progress Towards Goals Progress Towards Goals Slow Progress - Other Assessment Summary Assessment Pt has not made any progress since beginning therapy. Subjective symptoms are worsening. Unclear currently any appropriate DDx or treatment options. Discussed pt's referral for Neuro Price Accuracy Supervisor, attempting to get into [facility]. Pt not benefitting from vestibular therapy at this time, will be discharged from skilled therapy. Physical Therapy Plan Frequency and Duration Frequency of Treatment 2x/Week Plan of Care Start Date 02/23/24 Plan of Care End Date 04/24/24 Therapeutic Interventions Therapeutic Interventions Balance Training,Canalithic Repositioning,Coordination Training,Home Exercise Program ,Manual Therapy,Neuromuscular Re-education,Patient/Caregiver Education,Self-Care/Home Management,Soft Tissue Mobilization,Therapeutic Activities,Therapeutic Exercises,Vestibular Rehabilitation Discharge Physical Therapy Discharge Reasons Plateau in Progress Next Visit Focus/Plan Next Note Type Discharge Summary
== END 2024-09-09 10:52 | disposition home or self-care (01) ==
LOC: PHYS 09:00
PROVIDERS: Family Provider Internal Medicine; PCP Internal Medicine; Referring Provider Otolaryngology; Visit Provider Otolaryngology
DX: R42 Dizziness and giddiness (principal); R26.89 Other abnormalities of gait and mobility; Z87.820 Personal history of traumatic brain injury
CPT/HCPCS: 97112; 97163; 97535

== ENCOUNTER → 2024-06-18 09:23 | Outpatient (CLI) | payer MEDICARE, SELFPAY | PROVIDERS: Family Provider Internal Medicine; PCP Internal Medicine; Referring Provider Urology; Visit Provider Urology | DX: Z12.5 Encounter for screening for malignant neoplasm of prostate (principal); N40.1 Benign prostatic hyperplasia with lower urinary tract symptoms | CPT/HCPCS: 87086 ==

== ENCOUNTER 2024-07-08 06:08 | Day surgery (SDC) | payer MEDICARE, SELFPAY ==
[2024-06-17 08:26] VITALS: BMI 22.8
[2024-07-08] VITALS (9 sets, daily range): BP systolic 106–137; BP diastolic 53–76; PULSE 9–611; RESP 10–16; TEMP 36.1–36.3; O2SAT 95–100; BMI 22.8
--- NOTE | 2024-07-08 | PATH_ITS ---
[facility] Accession Number: [id number] No. of containers..01 Tissue . 01 Material submitted: . prostate - PROSTATE CHIPS . 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 Negative for malignancy. TXN 07/10/2024 1238 Local . 01 Electronically signed: . Thao Andrea MD, Pathologist NPI- [id number] . 01 Gross description: . Received in formalin with two identifiers and prostate chips, are multiple rawls soft tissue fragments admixed with a moderate amount of hemorrhagic material weighing 8 grams and aggregating to 5.5 x 5.5 x 1.6 cm. Submitted entirely in cassettes A1-A6. ([id number]) /CHIVO 07/09/2024 1025 Local . 01 Pathologist provided ICD-10: N40.1 . 01 CPT . 245360 Specimen Comment: A courtesy copy of this report has been sent to [facility] Pathology Performed at: [address] [address], [place], [place] [id number] MD Carlos Norris MD Phone: [phone]
[2024-07-08] MEDS: ACETAMINOPHEN 325 MG TABLET 975 MG PO (06:44)
--- NOTE | 2024-07-08 07:32 | PM.PREOP ---
Pre-operative Note COVID-19 COVID-19 status: Not tested Interval Note History & Physical reviewed/Exam performed by Physician: Yes Changes to H&P: No
[2024-07-08] MEDS: CEFAZOLIN 2 GM/100 ML PREMIX 100 ML IV (07:52)
[2024-07-08] MEDS: LACTATED RINGERS 1,000 ML 21 ML IV (07:56)
--- NOTE | 2024-07-08 08:18 | SUR.OPER ---
Lithotomy on padded OR bed, head on pillow, arms secured on padded arm boards at <90 degrees abduction. Legs secured in padded yellow fins stirrups.
--- NOTE | 2024-07-08 09:31 | P.OP_ITS ---
Procedure & Clinicians Procedure: Cystoscopy Aquablation Same procedure as scheduled: Yes Indications: 74 y/o M w/ symptoms consistent w/ BPH and LUTS that have been managed with Alfuzosin 10mg and Finasteride 5mg daily who is unhappy with taking medications and side effects of dizziness and tinnitus. He ultimately opted for management of his bothersome LUTS w/ an Aquablation procedure. Surgeon: Eric Christopher Click Yes if Unassisted: Yes Anesthesia Type: General Operative Notes Findings: Trilobar hyperplasia, small intravesical median lobe Closure Type: not applicable Specimen(s): other (prostate chips) Applied: catheter Estimated Blood Loss (mL): 50 Blood products transfused: none Procedure in detail: After informed consent was obtained, the patient was identified brought to the operating room where he was placed in his supine position on the table.? Once there anesthesia was induced and maintained.? Ensuring an adequate level of anesthesia the patient was transitioned to the lithotomy position where after time-out he was prepped.? After prepping, ensuring an adequate level of anesthesia, administration IV antibiotics and time-out 60 cc of ultrasound gel was instilled within the rectum and the ultrasound probe which had been attached to the TRUS stepper which was attached to the TRUS stepper articulating arm which was secured to the bed was advanced into the rectum under direct vision via the ultrasound.? The ultrasound probe was then aligned and confirmation made that the prostate was centered and aligned in both the sagittal and transverse views.? The bladder neck, verumontanum, central and transitional zones were identified.? With the ultrasound in place and adjusted the patient was then draped in a sterile fashion. With the patient draped the 24 [place] aqua beam handpiece was then inserted through the urethra and advanced into the bladder.? Cystoscopy was then performed and no concerning bladder mass or lesions were noted.? Bilateral ureteral orifices were noted to be orthotopic in nature.? As the cystoscope was advanced the level of the sphincter, verumontanum, bladder neck were all identified via ultrasound and under direct vision.? The aqua beam hand place was then secured to the handpiece articulating arm which had been secured to the bed.? The Aquablation handpiece and TRUS probe were confirmed to be parallel and colinear.? Confirmation was then made that the aqua beam handpiece and nozzle was centered and anterior to the bladder neck. ?The cystoscope was then retracted under direct vision in the sphincter and verumontanum were identified.? The tip of the cystoscope was then placed proximal to the external sphincter.? Compression was applied with the TRUS probe to the prostate.? The alignment of the TRUS probe and aqua beam handpiece was once again confirmed.? Horizontal alignment of the handpiece water jet was then performed.? With these adjustments made, the treatment zones were then planned using real-time ultrasound.? In the largest transverse view of the prostate the depth and radial angles were determined and set again in the transverse view of the prostate.? In the longitudinal and sagittal view the Aquablation nozzle was identified and its position registered with the software and robot.? The treatment contours were then determined and adjusted to reflect the intended margins of resection.? Following our plan confirmation, the Aquablation resection treatment was started.? A 2nd pass was then completed in similar fashion after the 1st pass had been completed.? At this point, the Aqua hand piece was removed from the urethra. The 26Fr resectoscope was then inserted into the urethra and cystoscopy was repeated.? The Elik cinnamon grinder was utilized to evacuate the blood clots from the bladder.? The bladder neck was then resected using the bipolar Gyrus loop.? Bilateral ureteral orifices were again identified and noted to be intact at case end.? Hemostasis was obtained and noted to be excellent at case end.? The resectoscope was then removed and a 24Fr Kyleigh 3-way hematuria catheter was inserted through the urethra and into the bladder.? 45cc of sterile water was utilized for balloon insufflation.? Efflux was noted to be clear at case end.? Anesthesia was reversed, he was extubated in the OR and transferred to the PACU in stable condition for recovery. Complications: none Post-operative Condition: stable Disposition: PACU Plan for aftercare: Will run CBI for a few hours. If efflux remains relatively clear, will discharge home with crocker catheter in place and have him return to Urology clinic on 10 Jul 2024. Should his efflux remain bloodier than expected, will admit for observation overnight.
[2024-07-08] MEDS: HYDROMORPHONE 1 MG INJ IV (09:36)
[2024-07-08] MEDS: OXYCODONE IR 5 MG TABLET PO ×2 (09:49→11:04)
[2024-07-08] MEDS: METOCLOPRAMIDE 10 MG/2 ML INJ IV (11:04)
== END 2024-07-08 12:25 | disposition home or self-care (01) ==
LOC: AC 11:49 → OR 13:08
PROVIDERS: Family Provider Internal Medicine; PCP Internal Medicine; Referring Provider Urology; Visit Provider Urology
PROC: 0VT08ZZ Resection of Prostate, Via Natural or Artificial Opening Endoscopic (ICD-10-PCS; CPT 0421T; principal; 2024-07-08 07:45)
DX: N40.1 Benign prostatic hyperplasia with lower urinary tract symptoms (principal); R39.12 Poor urinary stream; R39.11 Hesitancy of micturition; R35.1 Nocturia
CPT/HCPCS: 0421T; C2596; J0330; J0690; J1100; J1171; J2405; J2704; J2765; J3010

== ENCOUNTER → 2024-07-15 14:54 | Outpatient (CLI) | payer MEDICARE, SELFPAY | PROVIDERS: Family Provider Internal Medicine; PCP Internal Medicine; Visit Provider Urology | DX: N40.1 Benign prostatic hyperplasia with lower urinary tract symptoms (principal); Z48.89 Encounter for other specified surgical aftercare | CPT/HCPCS: 51798; 81002; 87086 ==

== ENCOUNTER → 2024-08-07 14:12 | Outpatient (CLI) | payer MEDICARE, SELFPAY ==
[2024-08-07 14:32] LABS: Add Manual Diff / Slide Review NO; Basophils Absolute Auto 0 /uL (0-100); Basophils Percent Auto 0.4 % (0-2); Eosinophils Absolute Auto 100 /uL (0-450); Eosinophils Percent Auto 1.4 % (2-4); Hematocrit 39.8 % (41-53); Hemoglobin 13.4 g/dL (13.5-17.5); Lymphocytes Absolute Auto 1600 /uL (1100-4500); Lymphocytes Percent Auto 25.3 % (25-40); Mean Corpuscular HGB Conc 33.7 % (30-36); Mean Corpuscular Hemoglobin 35.8 PG (26-34); Mean Corpuscular Volume 106.4 fL (80-100); Monocytes Absolute Auto 500 /uL (0-900); Monocytes Percent Auto 7.3 % (3-14); Neutrophils Absolute Auto 4200 /uL (1500-7000); Neutrophils Percent Auto 65.6 % (50-75); Platelet Count 274 X10^3/uL (150-400); Red Blood Cell Count 3.73 X10^6/uL (4.5-5.9); White Blood Cell Count 6.4 X10^3/uL (4.5-11.0)
[2024-08-07 14:50] LABS: Alanine Aminotransferase 22 IU/L (<50); Albumin 4.6 g/dL (3.5-5.0); Albumin Globulin Ratio 1.8 (1.0-2.8); Alkaline Phosphatase 49 U/L (38-126); Aspartate Aminotransferase 29 IU/L (17-59); BUN Creatinine Ratio 16.4 (6-22); Bilirubin Total 0.6 mg/dL (0.2-1.3); Blood Urea Nitrogen 19 mg/dL (9-20); Calcium 9.1 mg/dL (8.4-10.2); Carbon Dioxide 29 mmol/L (22-32); Chloride 102 mmol/L (98-107); Estimated Glomerular Filt Rate > 60 mL/min (>60); Globulin 2.6 g/dL (1.7-4.1); Glucose 105 mg/dL (80-110); HEMOLYSIS < 15 (0-50); Potassium 3.9 mmol/L (3.4-5.1); Sodium 135 mmol/L (137-145); Total Protein 7.2 g/dL (6.3-8.2)
[2024-08-07 15:21] LABS: TSH w/ Reflex to FT4 1.22 uIU/mL (0.47-4.68)
[2024-08-07 15:33] LABS: Erythrocyte Sedimentation Rate 4 MM/HR (0-15)
== END ==
PROVIDERS: Family Provider Internal Medicine; PCP Internal Medicine; Referring Provider Internal Medicine; Visit Provider Internal Medicine
DX: E04.1 Nontoxic single thyroid nodule (principal); D75.89 Other specified diseases of blood and blood-forming organs; D46.9 Myelodysplastic syndrome, unspecified
CPT/HCPCS: 36415; 80053; 84443; 85025; 85651

== ENCOUNTER → 2024-08-20 10:13 | Outpatient (CLI) | payer MEDICARE, SELFPAY | PROVIDERS: Family Provider Internal Medicine; PCP Internal Medicine; Visit Provider Urology | DX: N40.1 Benign prostatic hyperplasia with lower urinary tract symptoms (principal); N13.8 Other obstructive and reflux uropathy; Z12.5 Encounter for screening for malignant neoplasm of prostate | CPT/HCPCS: 51798; 81002; 87086; 99213 ==

== ENCOUNTER → 2024-10-17 11:54 | Outpatient (CLI) | payer MEDICARE, SELFPAY ==
--- NOTE | 2024-10-17 11:56 | DI.US.S_ITS ---
PROCEDURE: US THYROID INDICATIONS: KNOWN NODULAR GOITER TECHNIQUE: Real-time scanning was performed of the thyroid gland, with image documentation. COMPARISON: [facility], [place]ID, 09/27/2023, 12:15. [facility]ID, 10/19/2022, 10:14. [facility]ID, 09/06/2018, 10:45. [facility], [place]ROID, 08/11/2015, 13:33. FINDINGS: Thyroid: Right lobe measures 6.6 x 2.0 x 1.8 cm. Left lobe measures 5.7 x 1.6 x 1.9 cm. Isthmus is 0.4 cm thick. Echotexture is heterogenous with a multinodular appearance. Nodule number: 1 (listed as #2 on the prior examination) Location: Right mid thyroid lobe Size: 2.0 x 1.2 x 1.2 cm (previously 2.1 x 1.7 x 1.3 cm). Composition: Solid Echogenicity: Isoechoic Shape: wider than tall. Margins: Smooth Echogenic foci: Punctate echogenic foci Total points: 6 ACR TI-RADS category: TR 4 Nodule number: 2 (listed as #3 on the prior examination) Location: Right inferior pole Size: 3.6 x 1.7 x 2.0 cm (previously 2.2 x 1.7 x 2.9 cm). Composition: Cystic Echogenicity: Anechoic Shape: Taller than wide Margins: Smooth Echogenic foci: None Total points: 3 ACR TI-RADS category: TR 3 Nodule number: 3 (listed as #4 on the prior examination) Location: Left superior pole Size: 1.1 x 0.6 x 0.5 cm (previously 1.2 x 0.6 x 0.6 cm). Composition: Solid Echogenicity: Isoechoic Shape: wider than tall. Margins: Smooth Echogenic foci: None Total points: 3 ACR TI-RADS category: TR 3 IMPRESSION: 1. Right mid thyroid lobe TR 4 nodule. Please refer to the prior FNA results. 2. Bilateral TR 3 nodules dating back to 2015; nodule #3 does not meet criteria for additional follow-up. Further thyroid ultrasound follow-up would be a clinical discretion, given that these nodules have been followed for 5 years. ACR TI-RADS definitions and recommendations: TI-RADS 1 (benign): 0 points. FNA not needed. TI-RADS 2 (not suspicious): 2 points. FNA not needed. TI-RADS 3: 3 points. * FNA if 2.5 cm or larger, follow up if 1.5 cm or larger (at 1, 3, and 5 years). TI-RADS 4: 4-6 points. * FNA if 1.5 cm or larger, follow up if 1 cm or larger (at 1, 2, 3, and 5 years). TI-RADS 5: 7 points or more. * FNA if 1 cm or larger, follow up if 0.5 cm or larger (every year for 5 years). Dictated by: Jaime Owens M.D. on 10/17/2024 at 16:36 Approved by: Jaime Owens M.D. on 10/17/2024 at 16:45
== END ==
PROVIDERS: Family Provider Internal Medicine; PCP Internal Medicine; Referring Provider Internal Medicine; Visit Provider Internal Medicine Endocrinology, Diabetes & Metabolism
DX: E04.2 Nontoxic multinodular goiter (principal)
CPT/HCPCS: 76536

== ENCOUNTER → 2024-11-04 10:10 | Outpatient (CLI) | payer MEDICARE, SELFPAY ==
[2024-11-04 11:41] LABS: Prostate Specific Antigen 2.41 ng/mL (0.10-4.00)
== END ==
LOC: LAB 10:11
PROVIDERS: Family Provider Internal Medicine; PCP Internal Medicine; Referring Provider Urology; Visit Provider Urology
DX: N40.1 Benign prostatic hyperplasia with lower urinary tract symptoms (principal); Z12.5 Encounter for screening for malignant neoplasm of prostate
CPT/HCPCS: 36415; 84153

== ENCOUNTER → 2024-11-15 07:50 | Outpatient (CLI) | payer MEDICARE, SELFPAY ==
--- NOTE | 2024-11-15 07:52 | DI.NM.S_ITS ---
PROCEDURE: NM MARÍA ELENA PERF SPECT REST & STR Rest and exercise myocardial perfusion SPECT with gated imaging and ejection fraction RADIOPHARMACEUTICAL: 12.2 mCi Tc-99m sestamibi IV at rest and 24.7 mCi Tc-99m sestamibi IV at peak exercise. A 1 day-protocol was performed. INDICATIONS: RBBB/Chest pain PQRS ATTESTATIONS: Measure 322 - Is this imaging test primarily performed on a low-risk surgery patient for preoperative evaluation within 30 days preceding their low-risk non-cardiac surgery? Low-risk surgery is defined as cardiac or myocardial infarction less than 1%, including (but not limited to) endoscopic procedures, superficial procedures, cataract surgery, and excisional breast surgery: Answer: No Measure 323 - Is this imaging test performed primarily for the monitoring of an asymptomatic patient who had percutaneous coronary intervention on the visit date or within 2 years of the visit date? Answer: No Measure 324 - Is this imaging test performed primarily for the initial detection and risk assessment on an asymptomatic, low coronary heart disease patient? Low CHD risk definition = clinicians should consider the maximum number of available patient factors used to estimate risk based on [place] (ATP III criteria), typically age, gender, diabetes, smoking status, and use of blood pressure medication, and integrate age appropriate estimates for missing elements, such as LDL or standard blood pressure. Answer: No TECHNIQUE: Radiopharmaceutical was injected at peak stress test, and also at rest. SPECT images were obtained. SPECT myocardial perfusion images were displayed in short axis, horizontal long axis, and vertical long axis views. Gated images were reviewed using [employer] software. COMPARISON: None. CARDIAC STRESS: A standard Marcos treadmill exercise tolerance test was performed by the patient under the supervision of an attending staff. The patient exercised for 7 minutes and 0 seconds; functional aerobic impairment (MARTHA) is -10%. Hemodynamic data: There is normal blood pressure and heart rate response to exercise stress. Patient achieved greater than 85% of maximum predicted heart rate at peak exercise. Symptoms: Patient denied chest pain during exercise. EKG: No diagnostic EKG changes of ischemia; no ectopy. FINDINGS: Raw data: There is good myocardial labeling by radiotracer. No significant motion artifacts. Ghaj-rx-vrryb ratio is 0.22 (normal is less than 0.38 for sestamibi tracer, and less than 0.50 for thallium tracer). Left ventricle function: Gated images demonstrate normal left ventricle wall thickening. No segmental wall motion abnormality. No transient ischemic dilation; TID is 0.92 (normal less than 1.3). The left ventricle resting end-diastolic volume is 112 mL. Left ventricle stress ejection fraction is 61%; normal values are above 45%. Myocardial perfusion: There is normal distribution of activity in the left and right ventricular myocardium. No fixed or reversible perfusion defects. Increased gut uptake noted. IMPRESSION: 1. Negative exercise myocardial perfusion scan for ischemia and infarction. 2. Above average exercise tolerance. Dictated by: Golden Martin M.D. on 11/15/2024 at 16:57 Approved by: Golden Martin M.D. on 11/15/2024 at 16:59
--- NOTE | 2024-11-15 14:25 | P.PCN_ITS ---
Cardiac Stress Test Report Referral & Results Date Patient Seen: 11/15/24 Time Patient Seen: 14:25 Indication: Atypical chest pain and dysrhythmia Rest ECG: Right bundle branch block which is old Procedure Note: Today following both written and verbal informed consent the patient was exercised according to a standard Marcos protocol patient went for a total of 7 minutes achieving a maximum heart rate of 170 (computer identified 200+ but this was due to artifact) maximum systolic blood pressure of 162. This is approximately 10.1 METS. Exercise was terminated at this point because of targets were met. Patient was also given Cardiolite through a previously started Hep-Lock IV by the diagnostic imaging staff approximately 1 minute prior to the cessation of e xercise. There were no notable ST-T segment changes seen although obviously his right bundle branch block could obscure some significant changes Excellent exercise capacity with the functional aerobic impairment rating 110% of normal on the active scale No dysrhythmias Impression: No evidence of ischemia based on usual ECG criteria Excellent exercise capacity Await perfusion imaging report for further details regarding possible ischemia Please note: Actual ECG tracings can be found in the PACS system.
== END ==
PROVIDERS: Family Provider Internal Medicine; PCP Internal Medicine; Referring Provider Internal Medicine; Visit Provider Internal Medicine
DX: R94.31 Abnormal electrocardiogram [ECG] [EKG] (principal); R07.89 Other chest pain; I45.10 Unspecified right bundle-branch block
CPT/HCPCS: 78452; 93016; 93017; 93018; A9502

== ENCOUNTER → 2025-01-30 12:48 | Outpatient (CLI) | payer MEDICARE, SELFPAY ==
[2025-01-30 13:52] LABS: Appearance Urine UA CLEAR; Bilirubin Urine UA NEGATIVE (NEGATIVE); Color Urine UA YELLOW; Glucose Urine UA NEGATIVE (Negative); Ketones Urine UA TRACE (NEGATIVE); Leukocyte Esterase Urine UA NEGATIVE (NEGATIVE); Nitrite Urine UA NEGATIVE (Negative); Occult Blood Urine UA NEGATIVE (Negative); Protein Urine UA NEGATIVE (Negative); Specific Gravity Urine UA 1.010 (1.000-1.035); Urobilinogen Urine UA 0.2 E.U./dL (0.2); pH Urine UA 6.5 (4.5-8.0)
[2025-01-30 14:00] LABS: Culture Indicated Urine Cult Not Indicated
== END ==
PROVIDERS: Family Provider Internal Medicine; PCP Internal Medicine; Referring Provider Internal Medicine; Visit Provider Internal Medicine
DX: R30.0 Dysuria (principal)
CPT/HCPCS: 81001

== ENCOUNTER 2025-02-21 13:53 | Emergency (ER) | payer MEDICARE, SELFPAY ==
[2025-02-21 13:55] VITALS: BP 181/79; PULSE 73; RESP 14; TEMP 36.4; O2SAT 100; BMI 21.9
--- NOTE | 2025-02-21 14:00 | DI.RAD.S_ITS ---
PROCEDURE: XR FINGER RT MIN 2V INDICATIONS: laceration to 3rd digit TECHNIQUE: AP hand, 2 views of the 3rd finger(s) acquired. COMPARISON: None. FINDINGS: Bones: No fractures or dislocations. No suspicious bony lesions. Soft tissues: Soft tissue laceration over ulnar aspect of 3rd digit at the level of 3rd DIP joint is seen. No suspicious soft tissue calcifications. IMPRESSION: Soft tissue laceration over ulnar aspect of 3rd finger. No acute fracture or dislocation. No radiopaque foreign bodies. Dictated by: John Martin M.D. on 02/21/2025 at 14:31 Approved by: John Martin M.D. on 02/21/2025 at 14:32
--- NOTE | 2025-02-21 14:54 | ED_ITS ---
HPI - Wound/Laceration General Chief Complaint: Wound/Laceration Stated Complaint: Cut on right middle finger Time Seen by Provider: 02/21/25 13:59 Source: patient Mode of arrival: Ambulatory History of Present Illness HPI narrative: 74 years old male came in today complaining of laceration of the right middle finger on the dorsal so face 4 cm and palmar surface 2.5 cm after his finger got pinched between the late and heavy battery when he tried to lift the battery. His last tetanus was 2010. He denied any other injury. Related Data Home Medications ?Medication ?Instructions ?Recorded ?Confirmed calcium 400 mg 1 tab PO DAILY 06/17/24 08/0 08/17 (carbonate)-magnesium 167 mg (oxide)-D3 133 unit tablet (Calcium Magnesium plus D) Previous Rx's ?Medication ?Instructions ?Recorded hydrocodone 5 mg-acetaminophen 325 1 - 2 tab PO Q4-6H PRN pain #15 11/01/24 mg tablet tabs citalopram 10 mg tablet 10 mg PO DAILY #90 tabs 12/23 03/17 cephalexin 500 mg capsule 500 mg PO TID #15 caps 02/21 Allergies Allergy/AdvReac Type Severity Reaction Status Date / Time Sulfa (Sulfonamide Allergy Severe UNKNOWN, Verified 02/21/25 14:00 Antibiotics) JUST A WARNING POTENTIALLY LIFE THREATENING doxycycline (DOXYCYCLINE) Allergy Mild ITCHY Verified 02/21/25 14:00 THROAT/ TONGUE OYSTER AdvReac Mild GI Uncoded 02/21/25 14:00 INTOLERENCE Review of Systems Review of Systems Narrative: Positive for Right middle finger laceration. Negative for head injury, neck pain, back pain, chest pain, loss of consciousness, nausea vomiting, headache. Patient History Medical History RBBB BPH (benign prostatic hyperplasia) Prostatitis PAC (premature atrial contraction) Peyronie disease Erectile dysfunction Family history of prostate cancer BPH w urinary obs/LUTS Vertigo (~2010) Insomnia (~2010) Migraines (~2010) Fractures (~1973) Irritable bowel syndrome Hemorrhoid (~2003) Diverticular disease (~1993) Central serous retinopathy (~1993) Vertigo Tinnitus Thyroid nodule (~2012) Macrocytosis (~2012) Nonallopathic lesion of cervical region (10/28/14) Internal hemorrhoids (10/28/14) Tubular adenoma of colon (10/28/14) Reflux (06/09/14) Seborrheic keratosis (02/17/14) Actinic keratosis of scalp (02/17/14) Postconcussion syndrome (02/17/14) Daily headache (02/17/14) Anxiety (02/17/14) Surgical History S/P cataract extraction S/P TURP S/P rotator cuff repair (~07/2022) Inguinal hernia (~2013) Status post colonoscopy (~2014) Status post hernia repair (~1964) Family History Brother Age: 77 Prostate cancer Father Parkinson disease Colon cancer Cancer Grandfather CAD (coronary artery disease) Diabetes mellitus Grandmother CAD (coronary artery disease) Diabetes mellitus Mother Age: 99 Hypertension Osteoarthritis GERD (gastroesophageal reflux disease) Overweight Hearing impaired UTI (urinary tract infection) Grandmother History of blood clots Social History marital status: number of children: 0 household members: spouse lives independently: Yes caregiver/support person: No housing: house pets and animals: Yes education level: other occupational status: other Previous occupational history: [employer]. travel history: recent leisure activities: exercise, fishing and other Smoking Status: Unknown if ever smoked Tobacco: How many years used: 7 Smokeless tobacco user: other quit status: quit date established second hand exposure: No alcohol intake: current substance use type: does not use caffeine: No Smoking Status: Unknown if ever smoked alcohol intake frequency: 0-2 drinks per day Exam Narrative Exam Narrative: GENERAL: Cooperative. No acute distress. HEAD: Atraumatic. Normocephalic. NECK: Trachea midline. Non tender CARDIOVASCULAR: Regular rate and rhythm without murmurs, gallops, or rubs. RESPIRATORY: Clear to auscultation. Breath sounds equal bilaterally. No wheezes, rales, or rhonchi. EXTREMITIES: No edema or joint tenderness. normal flexion and extension tendon function of the right middle finger for a distal and proximal interphalangeal joint. BACK: Nontender without deformity or crepitance. No flank tenderness. NEURO: AOx3. SKIN: 4 cm laceration dorsal surface of the right middle finger and 2.5 cm palmar surface of the right middle finger. Initial Vital Signs Initial Vital Signs: Vital Signs Temperature 97.6 F 02/21/25 13:55 Pulse Rate 73 02/21/25 13:55 Respiratory Rate 14 02/21/25 13:55 Blood Pressure 181/79 H 02/21/25 13:55 Pulse Oximetry 100 02/21/25 13:55 Oxygen Delivery Method Room Air 02/21/25 13:55 Procedures Laceration Repair Laceration 1: Time of procedure: 15:10 Site: upper extremity (Right middle finger, dorsal surface) Size (cm): 4 Local Anesthetic: lidocaine 1% Amount of anesthesia used (mL): 8 (Digital nerve block) Skin layer closed with: nylon Skin layer suture size: 4-0 Number of sutures: 8 Technique: simple, interrupted Laceration 2: Time of procedure: 15:30 Site: upper extremity (Right middle finger, palmar surface) Size (cm): 2.5 Local Anesthetic: lidocaine 1% Amount of anesthesia used (mL): 8 (Digital nerve blocks) Skin layer closed with: nylon Skin layer suture size: 4-0 Number of sutures: 3 Technique: simple, interrupted Course Orders Ordered: Discontinued Medications Bacitracin (Bacitracin Oint 0.9 Gm Pckt) 1 applic TOP NOW ONE Stop: 02/21/25 15:47 Last Admin: 02/21/25 15:59 Dose: 1 applic Documented By: RAMON Diphtheria/Tetanus/Acell Pertussis (Tet,Diph,Pertuss(Acell),Vac/Pf 0.5 Ml Syringe) 0.5 ml IM .ONCE ONE Stop: 02/21/25 15:12 Last Admin: 02/21/25 15:43 Dose: 0.5 ml Documented By: RAMON Vital Signs Vital signs: Vital Signs - 8 hr 02/21/25 13:55 Temperature 97.6 F Pulse Rate 73 Respiratory Rate 14 Blood Pressure 181/79 H Pulse Oximetry 100 Oxygen Delivery Method Room Air MDM - Wound/Laceration Imaging Data Right finger x-ray: Radiologist's Impression: PROCEDURE: XR FINGER RT MIN 2V INDICATIONS: laceration to 3rd digit TECHNIQUE: AP hand, 2 views of the 3rd finger(s) acquired. COMPARISON: None. FINDINGS: Bones: No fractures or dislocations. No suspicious bony lesions. Soft tissues: Soft tissue laceration over ulnar aspect of 3rd digit at the level of 3rd DIP joint is seen. No suspicious soft tissue calcifications. IMPRESSION: Soft tissue laceration over ulnar aspect of 3rd finger. No acute fracture or dislocation. No radiopaque foreign bodies. Dictated by: John Martin M.D. on 02/21/2025 at 14:31 Approved by: John Martin M.D. on 02/21/2025 at 14:32 [facility] Narrative Medical decision making narrative: 74 years old male came today complaining of right middle finger laceration after it was pinched by a heavy battery and the lid. He was having 4 cm laceration of the dorsal surface of the right middle finger and 2.5 cm laceration at the palmar surface right middle finger. On exam showed normal flexion and extension tendon function of the right middle finger for a distal and proximal interphalangeal joint. He was having 8 stitches on the dorsal surface and 3 stitches on the palmar surface right middle finger. He tolerated the procedure well. He was given tetanus vaccine. He will have suture removal next 10-14 days. Return to ED precautions was given. The x-ray of the right middle finger showed no acute finding. Discharge Plan Departure Patient Disposition: Home Clinical Impression: Finger laceration Instructions: DI for Laceration Repair Activity Restrictions/Additional Instructions: Please come back for suture removal next 10-14 days. Please come back to the emergency room if any worsening symptoms including but not limited to increasing swelling, redness, drainage, fever, chills, nausea vomiting. Prescriptions: New cephalexin 500 mg capsule 500 mg PO TID Qty: 15 0RF No Action citalopram 10 mg tablet 10 mg PO DAILY Qty: 90 3RF hydrocodone-acetaminophen 5-325 mg tablet 1 - 2 tab PO Q4-6H MDD 4 tabs PRN (Reason: pain) Qty: 15 0RF Calcium Magnesium plus D 400-167-133 mg-mg-unit Tablet 1 tab PO DAILY Referrals: Brenton Alonso MD [Primary Care Provider, Internal Medicine] Stand Alone Forms: Patient Portal/API
[2025-02-21] MEDS: TET,DIPH,PERTUSS(ACELL),VAC/PF 0.5 ML SYRINGE IM (15:43)
[2025-02-21 15:59] VITALS: BP 145/63; PULSE 70; O2SAT 97
[2025-02-21] MEDS: BACITRACIN OINT 0.9 GM PCKT 1 APPLIC TOP (15:59)
[2025-02-21 16:00] VITALS: O2SAT 97
== END 2025-02-21 16:04 | disposition home or self-care (01) ==
PROVIDERS: Emergency Provider Emergency Medicine; Family Provider Internal Medicine; PCP Internal Medicine
DX: S61.212A Laceration without foreign body of right middle finger without damage to nail, initial encounter (principal); W45.8XXA Other foreign body or object entering through skin, initial encounter; Z23 Encounter for immunization
CPT/HCPCS: 12002; 73140; 90471; 99283; 90715

== ENCOUNTER → 2025-06-10 09:29 | Outpatient (CLI) | payer MEDICARE, SELFPAY ==
[2025-06-10 10:26] LABS: HEMOLYSIS < 15 (0-50); Iron 129 ug/dL (49-181)
[2025-06-10 10:38] LABS: Percent Iron Saturation 46 % (20-50); Total Iron Binding Capacity 281 ug/dL (261-462); Transferrin 255 mg/dL (206-381)
[2025-06-10 10:45] LABS: Free T3, Triiodothyronine Free 3.53 pg/mL (2.77-5.27); Free T4, Direct Thyroxine 0.87 ng/dL (0.78-2.19)
[2025-06-10 10:59] LABS: Thyroid Stimulating Hormone 1.72 uIU/mL (0.47-4.68)
[2025-06-10 11:35] LABS: Folate 20.0 ng/mL (2.76-20.0); Vitamin B12 464 pg/mL (239-931)
== END ==
PROVIDERS: Family Provider Internal Medicine; PCP Internal Medicine; Referring Provider Internal Medicine; Visit Provider Internal Medicine
DX: E04.1 Nontoxic single thyroid nodule (principal); D75.89 Other specified diseases of blood and blood-forming organs
CPT/HCPCS: 36415; 82607; 82746; 83540; 83550; 84439; 84443; 84481